=== PATIENT | female | born 1955 | race Caucasian/White ===

== ENCOUNTER 2018-03-09 17:53 | Inpatient (IN) | payer BC ==
[2018-03-09] MEDS ORDERED: Catapres 0.1 MG PO ONE ×2 (18:17→19:39)
--- NOTE | 2018-03-09 18:23 | ERPHSYRPT ---
- History of Present Illness Source: patient Patient Subjective Stated Complaint: states bp has been up today. Triage Nursing Assessment: ambulated to room per self. skin w/d, color normal, resp easy. c/o headache today and blurred vision. denies any chest discomfort Hx Tetanus, Diphtheria Vaccination/Date Given: No Hx Influenza Vaccination/Date Given: No Hx Pneumococcal Vaccination/Date Given: No <SALEEM VILCHIS - Last Filed: 03/09/18 18:41> <DACIA SMITH - Last Filed: 03/09/18 21:08> - History of Present Illness Time Seen by Provider: 03/09/18 18:20 Physician History: mild to mod throbbing headache today w/ nausea, no chest pain, BP 223/131, no injury, hx htn, speech fluent (SALEEM VILCHIS) Allergies/Adverse Reactions: No Known Drug Allergies Allergy (Unverified 03/09/18 18:09) Home Medications: Amlodipine Besylate/Benazepril [Amlodipine-Benazepril 10-20 mg] 1 each PO DAILY 03/09/18 [History] Ferrous Sulfate 325 mg [Feosol 325 mg] 325 mg PO DAILY 03/09/18 [History] Montelukast Sodium 10 mg [Singulair 10 MG] 10 mg PO DAILY 03/09/18 [History] Naproxen 500 mg [Naprosyn 500 MG] 500 mg PO BID 03/09/18 [History] Omeprazole [Omeprazole] 40 mg PO DAILY 03/09/18 [History] - Review of Systems Constitutional: No Fever Eyes: Vision Changes Ears, Nose, & Throat: No Mouth Pain Respiratory: No Dyspnea Cardiac: No Chest Pain Abdominal/Gastrointestinal: Nausea, No Abdominal Pain, No Vomiting Musculoskeletal: No Back Pain, No Neck Pain Skin: No Rash Neurological: Headache, No Dizziness, No Focal Weakness, No Speech Changes <SALEEM VILCHIS - Last Filed: 03/09/18 18:41> - Past Medical History Pertinent Past Medical History: Yes Cardiac History: Hypertension Respiratory History: Asthma GI Medical History: GERD Other Medical History: anemia - Past Surgical History Past Surgical History: Yes Female Surgical History: Tubal Ligation - Social History Smoking Status: Never smoker Exposure to second hand smoke: No Drug Use: none Patient Lives Alone: No - Female History Hx Now: No <SALEEM VILCHIS - Last Filed: 03/09/18 18:41> - Physical Exam General Appearance: no apparent distress Eye Exam: PERRL/EOMI, eyes nml inspection Ears, Nose, Throat Exam: pharynx normal Neck Exam: normal inspection Respiratory Exam: normal breath sounds Cardiovascular Exam: regular rate/rhythm Gastrointestinal/Abdominal Exam: soft, No tenderness Extremity Exam: normal inspection Mental Status Exam: alert, oriented x 3, 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 Exam: normal hearing, normal speech, PERRL Motor/Sensory Exam: no motor deficit Skin Exam: normal color, warm, dry SpO2 Interpretation: normal SpO2: 95 Oxygen Delivery: Room Air <SALEEM VILCHIS - Last Filed: 03/09/18 18:41> - Nursing Vital Signs Nursing Vital Signs: Initial Vital Signs Temperature 98.7 F 03/09/18 17:57 Pulse Rate 94 H 03/09/18 17:57 Respiratory Rate 18 03/09/18 17:57 Blood Pressure 223/131 03/09/18 17:57 O2 Sat by Pulse Oximetry 95 03/09/18 17:57 Pain Scale Pain Intensity 0 Ordered Tests: Active Orders 24 hr Category Date Time Status 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 STAT Care 03/09/18 18:19 Active EKG-ER Only STAT Care 03/09/18 18:18 Active IV Insertion STAT Care 03/09/18 18:18 Active Pulse Oximetry (ED) STAT Care 03/09/18 18:18 Active HEAD WITHOUT CONTRAST [CT] Stat Exams 03/09/18 18:18 Taken CBC W DIFF Stat Lab 03/09/18 18:20 Completed CMP Stat Lab 03/09/18 18:20 Completed PROTIME WITH INR Stat Lab 03/09/18 18:20 Completed TROPONIN Q3H Lab 03/09/18 18:20 Completed TROPONIN Q3H Lab 03/09/18 21:30 Ordered TROPONIN Q3H Lab 03/10/18 00:30 Ordered TROPONIN Q3H Lab 03/10/18 03:30 Ordered TROPONIN Q3H Lab 03/10/18 06:30 Ordered Medication Summary Generic Name Dose Route Start Last Admin Trade Name Freq PRN Reason Stop Dose Admin Metoprolol Succinate 50 mg 03/09/18 21:05 Toprol Xl 50 Mg PO 03/09/18 21:06 ONCE STA Discontinued Medications Generic Name Dose Route Start Last Admin Trade Name Eric PRN Reason Stop Dose Admin Clonidine 0.1 mg 03/09/18 18:17 03/09/18 19:00 Catapres 0.1 Mg PO 03/09/18 18:18 0.1 mg STAT ONE Administration Clonidine Confirm 03/09/18 18:59 Catapres 0.1 Mg Administered 03/09/18 19:00 Dose 0.1 mg .ROUTE .STK-MED ONE Clonidine 0.1 mg 03/09/18 19:39 03/09/18 19:50 Catapres 0.1 Mg PO 03/09/18 19:40 0.1 mg STAT ONE Administration Clonidine Confirm 03/09/18 19:46 Catapres 0.1 Mg Administered 03/09/18 19:47 Dose 0.1 mg .ROUTE .STK-MED ONE Sodium Chloride 1,000 mls @ 999 mls/hr 03/09/18 19:40 03/09/18 21:00 Sodium Chloride 0.9% 1000 Ml IV 03/09/18 20:40 Infused .Q1H1M STA Infusion Sodium Chloride Confirm 03/09/18 19:47 Sodium Chloride 0.9% 1000 Ml Administered 03/09/18 19:48 Dose 1,000 mls @ ud .ROUTE .STK-MED ONE Labetalol HCl 10 mg 03/09/18 20:22 03/09/18 20:30 Trandate 20 Mg/5 Ml Syringe IV 03/09/18 20:23 10 mg STAT ONE Administration Labetalol HCl Confirm 03/09/18 20:26 Trandate 20 Mg/5 Ml Syringe Administered 03/09/18 20:27 Dose 20 mg IV .STK-MED ONE Potassium Bicarbonate 50 meq 03/09/18 19:41 03/09/18 19:50 K-Lyte 25 Meq PO 03/09/18 19:42 50 meq STAT ONE Administration Potassium Bicarbonate Confirm 03/09/18 19:47 K-Lyte 25 Meq Administered 03/09/18 19:48 Dose 50 meq .ROUTE .STK-MED ONE Lab/Rad Data: Laboratory Result Diagrams 03/09/18 18:20 03/09/18 18:20 Laboratory Results 0503/09/18 03/09/18 Range/Units 18:20 18:20 18:20 WBC (4.0-10.5) K/mm3 RBC (4.1-5.4) M/mm3 Hgb (12.0-16.0) gm/dl Hct (35-47) % MCV (78-100) fl MCH (26-32) pg MCHC (32-36) g/dl Plt Count (150-450) K/mm3 MPV (6-9.5) fl Gran % (36.0-66.0) % Eos # (Auto) (0-0.5) Absolute Lymphs (auto) (1.0-4.6) Absolute Monos (auto) (0.0-1.3) Lymphocytes % (24.0-44.0) % Monocytes % (0.0-12.0) % Eosinophils % (0.00-5.0) % Basophils % (0.0-0.4) % Absolute Granulocytes (1.4-6.9) Basophils # (0-0.4) PT 11.5 (9.95-12.35) SECONDS INR 0.99 (0.8-3.0) Sodium 146 H (137-145) mmol/L Potassium 2.9 L* (3.5-5.1) mmol/L Chloride 97 L (98-107) mmol/L Carbon Dioxide 34 H (22-30) mmol/L Anion Gap 18.4 H (5-15) MEQ/L BUN 26 H (7-17) mg/dL Creatinine 0.90 (0.52-1.04) mg/dL Estimated GFR > 60.0 ML/MIN Glucose 99 (74-106) mg/dL Calcium 13.8 H* (8.4-10.2) mg/dL Total Bilirubin 0.50 (0.2-1.3) mg/dL AST 31 (14-36) U/L ALT 16 (0-35) U/L Alkaline Phosphatase 65 (38-126) U/L Troponin I 0.012 (0.000-0.034) ng/mL Serum Total Protein 7.6 (6.3-8.2) g/dL Albumin 4.5 (3.5-5.0) g/dL 03/09/18 Range/Units 18:20 WBC 8.9 (4.0-10.5) K/mm3 RBC 4.61 (4.1-5.4) M/mm3 Hgb 12.0 (12.0-16.0) gm/dl Hct 38.3 (35-47) % MCV 83.1 (78-100) fl MCH 26.0 (26-32) pg MCHC 31.3 L (32-36) g/dl Plt Count 413 (150-450) K/mm3 MPV 10.0 H (6-9.5) fl Gran % 70.3 H (36.0-66.0) % Eos # (Auto) 0.34 (0-0.5) Absolute Lymphs (auto) 1.62 (1.0-4.6) Absolute Monos (auto) 0.66 (0.0-1.3) Lymphocytes % 18.2 L (24.0-44.0) % Monocytes % 7.4 (0.0-12.0) % Eosinophils % 3.8 (0.00-5.0) % Basophils % 0.3 (0.0-0.4) % Absolute Granulocytes 6.24 (1.4-6.9) Basophils # 0.03 (0-0.4) PT (9.95-12.35) SECONDS INR (0.8-3.0) Sodium (137-145) mmol/L Potassium (3.5-5.1) mmol/L Chloride (98-107) mmol/L Carbon Dioxide (22-30) mmol/L Anion Gap (5-15) MEQ/L BUN (7-17) mg/dL Creatinine (0.52-1.04) mg/dL Estimated GFR ML/MIN Glucose (74-106) mg/dL Calcium (8.4-10.2) mg/dL Total Bilirubin (0.2-1.3) mg/dL AST (14-36) U/L ALT (0-35) U/L Alkaline Phosphatase (38-126) U/L Troponin I (0.000-0.034) ng/mL Serum Total Protein (6.3-8.2) g/dL Albumin (3.5-5.0) g/dL <SALEEM VILCHIS - Last Filed: 03/09/18 18:41> - Progress Progress: improved Air Movement: fair <DACIA SMITH - Last Filed: 03/09/18 21:08> - Progress Progress Note: 03/09/18 18:[address] Smith at 19:00 (SALEEM VILCHIS) 03/09/18 20:02 This is a 62-year-old white female initially seen by Dr. Vilchis Patient a history has a history of high blood pressure, asthma, GERD, anemia Past surgical history includes tubal ligation Patient arrives with complaints of a headache today with nausea she was noted have markedly elevated blood pressure 223/131 Patient apparently had a vasovagal response with her blood pressure going low afterwards her headache went away but came back up patient was given clonidine 0.[address] Vilchis Vitals on arrival temperature 98.7 pulse 94 respirations 18 blood pressure 223/ 181 Physical examination well-developed well-nourished white female she is alert oriented 3 pleasant and cooperative to examination Head is atraumatic normocephalic. Eyes PERRLA EOMI fundi are unremarkable. Ears TMs are montemayor and intact bilaterally. Nose is clear. Throat is clear. Neck is supple full range of motion. Lungs are clear. Heart regular rate and rhythm without murmur. Abdomen soft nontender nondistended positive bowel sounds. Extremities full range of motion pulse equal symmetrical 2 over 4. Neuro cranial nerves II through XII are intact DTRs symmetrical 2 over 4 Jackson Coma Scale is 15. EKG sinus rhythm 98 bpm normal axis Q waves in lead 3 poor anterior R-wave progresion no acute ST or T wave changes.; Labs CBC White blood cell 8.9 hemoglobin 12.0 hematocrit 31.3 platelets 413 PT 11.9 INR 0.99 chemistry sodium 146 potassium 2.9 chloride 97 bicarbonate 34 BUN 26 creatinine 0.9 glucose 99 Patient's calcium is elevated at 13.8 patient states she does take antacids Troponin is within normal limits Patient's anion gap is 18.4 Impression headache, hypokalemia, hypertension, hypercalcemia. Plan I've discussed the case briefly with Dr. Rodriguez will give patient's blood pressure down she is being given a second dose of clonidine considering labetalol. Patient will be given IV normal saline. Consideration was given to Lasix for the patient however she has a low potassium and will withhold this for now. Will give patient K-Lyte 50 mEq by mouth. 03/09/18 21:02 Patient is improve her blood pressure still elevated she was given clonidine 0.1 mg second dose Also given labetalol 10 mg IV I've contacted Dr. Rodriguez he wishes the patient to be given Toprol-XL 50 mg by mouth 1 Will continue her amlodipine/benazepril as prescribed at home we'll also write for Toprol-XL 50 mg by mouth daily also will write for hydralazine 10 mg IV every 4 hours when necessary systolic blood pressure greater than 180/110 Will start normal saline with 20 of potassium IV at 100 mL per hour. Repeat CBC CMP in the morning continue telemetry. Diagnosis headache. Hypertensive urgency. Hypokalemia. (DACIA SMITH) <SALEEM VILCHIS - Last Filed: 03/09/18 18:41> - Departure Time of Disposition: 21:07 Departure Disposition: Observation Critical Care Time: No <DACIA SMITH - Last Filed: 03/09/18 21:08> - Departure Clinical Impression: Hypertensive urgency, Hypokalemia, Hypercalcemia Headache Qualifiers: Headache type: unspecified Headache chronicity pattern: acute headache Intractability: not intractable Qualified Code(s): R51 - Headache Condition: Fair Referrals: NELL RODRIGUEZ MD [Primary Care Provider] -
[2018-03-09 18:33] LABS: BASOPHIL % 0.3 % (0.0-0.4); Basophil (Absolute #) 0.03 (0-0.4); Eosinophil % 3.8 % (0.00-5.0); Eosinophil (Absolute #) 0.34 (0-0.5); Granulocyte Absolute (ANC) 6.24 (1.4-6.9); Granulocytes % 70.3 % (36.0-66.0); Hematocrit 38.3 % (35-47); Lymphocyte (Absolute #) 1.62 (1.0-4.6); Lymphocytes % 18.2 % (24.0-44.0); Mean Cell Volume 83.1 fl (78-100); Mean Corpuscular Hgb Concent. 31.3 g/dl (32-36); Monocyte (Absolute #) 0.66 (0.0-1.3); Monocytes % 7.4 % (0.0-12.0); Platelet Count 413 K/mm3 (150-450); Red Blood Count 4.61 M/mm3 (4.1-5.4); White Blood Count 8.9 K/mm3 (4.0-10.5)
[2018-03-09 18:55] LABS: INR 0.99 (0.8-3.0)
[2018-03-09 18:59] LABS: ALBUMIN 4.5 g/dL (3.5-5.0); ALKALINE PHOSPHATASE 65 U/L (38-126); ANION GAP 18.4 MEQ/L (5-15); BLOOD UREA NITROGEN 26 mg/dL (7-17); CHLORIDE 97 mmol/L (98-107); Carbon Dioxide 34 mmol/L (22-30); Glucose 99 mg/dL (74-106); SGOT/AST 31 U/L (14-36); SGPT/ALT 16 U/L (0-35); SODIUM 146 mmol/L (137-145); Total Protein 7.6 g/dL (6.3-8.2)
[2018-03-09] MEDS ORDERED: Catapres 0.1 MG ONE ×2 (18:59→19:46)
[2018-03-09 19:32] LABS: Potassium 2.9 mmol/L (3.5-5.1)
[2018-03-09 19:33] LABS: Calcium 13.8 mg/dL (8.4-10.2)
[2018-03-09] MEDS ORDERED: Sodium Chloride 0.9% 1000 ML 1,000 ML IV STA (19:40)
[2018-03-09] MEDS ORDERED: K-LYTE 25 MEQ PO ONE (19:41)
[2018-03-09] MEDS ORDERED: Sodium Chloride 0.9% 1000 ML 1,000 ML ONE (19:47)
[2018-03-09] MEDS ORDERED: K-LYTE 25 MEQ ONE (19:47)
[2018-03-09] MEDS ORDERED: TRANDATE 20 MG/5 ML SYRINGE IV ONE ×2 (20:22→20:26)
[2018-03-09] MEDS ORDERED: Toprol Xl 50 MG PO STA (21:05)
[2018-03-09] MEDS ORDERED: Toprol-Xl 25MG Tablets ONE (21:14)
[2018-03-09] MEDS ORDERED: Lotrel 5/10 MG PO SCH (22:00)
[2018-03-09] MEDS: Sodium Chloride 0.9% W/ 20 mEq KCl/LITER 1,000 ML IV SCH (22:24)
[2018-03-09] MEDS ORDERED: FEOSOL 325 MG PO SCH (22:30)
[2018-03-09] MEDS ORDERED: Singulair 10 MG PO SCH (22:30)
[2018-03-09] MEDS ORDERED: Protonix 40MG Tablet PO SCH (22:30)
[2018-03-09] MEDS ORDERED: Toprol Xl 50 MG PO SCH (22:30)
[2018-03-09 23:31] LABS: Slide Review 1 YES
[2018-03-10 06:03] LABS: BASOPHIL % 0.3 % (0.0-0.4); Basophil (Absolute #) 0.03 (0-0.4); Eosinophil % 1.7 % (0.00-5.0); Eosinophil (Absolute #) 0.15 (0-0.5); Granulocyte Absolute (ANC) 6.54 (1.4-6.9); Granulocytes % 74.5 % (36.0-66.0); Hematocrit 32.5 % (35-47); Lymphocyte (Absolute #) 1.41 (1.0-4.6); Mean Cell Volume 84.9 fl (78-100); Mean Corpuscular Hemoglobin 26.1 pg (26-32); Mean Corpuscular Hgb Concent. 30.8 g/dl (32-36); Mean Platelet Volume 10.3 fl (6-9.5); Monocyte (Absolute #) 0.66 (0.0-1.3); Monocytes % 7.5 % (0.0-12.0); Platelet Count 386 K/mm3 (150-450); Red Blood Count 3.83 M/mm3 (4.1-5.4); White Blood Count 8.8 K/mm3 (4.0-10.5)
[2018-03-10 06:21] LABS: ALBUMIN 3.6 g/dL (3.5-5.0); ALKALINE PHOSPHATASE 48 U/L (38-126); ANION GAP 11.7 MEQ/L (5-15); BLOOD UREA NITROGEN 23 mg/dL (7-17); CHLORIDE 99 mmol/L (98-107); Carbon Dioxide 36 mmol/L (22-30); Creatinine 1 0.89 mg/dL (0.52-1.04); Glucose 126 mg/dL (74-106); SGOT/AST 16 U/L (14-36); SGPT/ALT 12 U/L (0-35); SODIUM 143 mmol/L (137-145); Total Protein 5.8 g/dL (6.3-8.2)
[2018-03-10 07:24] LABS: Slide Review 1 YES
--- NOTE | 2018-03-10 08:27 | XRAY ---
Indication: Headache. Elevated blood pressure. Multiple contiguous axial images obtained through the head without contrast. Comparison: None Age-appropriate global atrophy and mild periventricular degenerative micro-ischemia bilaterally. No acute intracranial hemorrhage, abnormal extra-axial fluid collection, or mass effect. Fourth ventricle is midline without hydrocephalus. Bony calvarium intact. Visualized paranasal sinuses and mastoid air cells are clear. Impression: Nonacute senile brain. CT DI 69.11
--- NOTE | 2018-03-10 09:18 | PCM.HP ---
History of Present Illness - Chief Complaint Chief Complaint: hypetensive urgency, hypokalemia, hypercalcemia History of Present Illness: is a 62 year old female who presented to the ER with acute onset of headache and elevated blood pressure. Has felt poorly for the last 2 days, no new meds or supplements. Has been taking a high protein/low carb diet. No chest pain, no shortness of breath, no vomiting etc. Patient admits to taking around 4 antacid tablets daily as of late. - Review of Systems Constitutional: No Fever, No Chills Respiratory: No Cough, No Short Of Breath Cardiac: No Chest Pain, No Edema, No Syncope Abdominal/Gastrointestinal: No Abdominal Pain, No Nausea, No Vomiting, No Diarrhea Genitourinary Symptoms: No Dysuria Skin: No Rash All Other Systems: Reviewed and Negative Medications & Allergies Home Medications: Home Medication List Amlodipine Besylate/Benazepril [Amlodipine-Benazepril 10-20 mg] 1 each PO DAILY 03/09/18 [History Confirmed 03/09/18] Ferrous Sulfate 325 mg [Feosol 325 mg] 325 mg PO DAILY 03/09/18 [History Confirmed 03/09/18] Montelukast Sodium 10 mg [Singulair 10 MG] 10 mg PO DAILY 03/09/18 [History Confirmed 03/09/18] Omeprazole [Omeprazole] 40 mg PO DAILY 03/09/18 [History Confirmed 03/09/18] Allergies/Adverse Reactions: Allergies Allergy/AdvReac Type Severity Reaction Status Date / Time No Known Drug Allergies Allergy Unverified 03/09/18 18:09 - Past Medical History Past Medical History: Yes Neurological History: No Pertinent History ENT History: No Pertinent History Cardiac History: Hypertension Respiratory History: Asthma Endocrine Medical History: No Pertinent History Musculoskelatal History: Arthritis GI Medical History: GERD History: No Pertinent History Pyscho-Social History: No Pertinent History Reproductive Disorders: No Pertinent History Comment: anemia - Female History Are you now?: No - Past Surgical History Past Surgical History: Yes Neuro Surgical History: No Pertinent History Cardiac History: No Pertinent History Respiratory Surgery: No Pertinent History GI Surgical History: No Pertinent History Genitourinary Surgical Hx: No Pertinent History Musculskeletal Surgical Hx: No Pertinent History Female Surgical History: Tubal Ligation - Social History Smoking Status: Never smoker Exposure to second hand smoke: No Alcohol: Rarely Drug Use: none - Physical Exam Vital Signs: Vital Signs - 24 hr Temp Pulse Resp BP Pulse Ox 03/10/18 07:27 98.4 F 67 16 159/73 94 L 03/10/18 04:00 98.3 F 73 18 172/84 93 L 03/10/18 00:00 76 18 161/80 98 03/09/18 23:34 183/83 03/09/18 22:37 98.1 F 76 17 182/100 93 L 03/09/18 21:10 79 16 175/101 98 03/09/18 20:42 78 171/109 03/09/18 20:31 83 18 192/109 97 03/09/18 20:02 89 18 214/106 98 03/09/18 19:20 84 16 215/117 97 03/09/18 18:58 83 18 205/109 03/09/18 18:42 95 03/09/18 18:24 98 03/09/18 17:57 98.7 F 94 H 18 223/131 95 Oxygen-Last 24 hours O2 Percentage 2 Liters = 28% O2 Percentage 2 Liters = 28% O2 Percentage 2 Liters = 28% O2 Percentage 2 Liters = 28% O2 Percentage 2 Liters = 28% O2 Percentage 2 Liters = 28% General Appearance: no apparent distress, alert Neurologic Exam: alert, oriented x 3, cooperative, normal mood/affect, nml cerebellar function, nml station & gait, sensation nml, No motor deficits Respiratory Exam: normal breath sounds, lungs clear, No respiratory distress Cardiovascular Exam: regular rate/rhythm, normal heart sounds, normal peripheral pulses Gastrointestinal/Abdomen Exam: soft, normal bowel sounds, No tenderness, No mass Extremity Exam: normal inspection, normal range of motion, pelvis stable Skin Exam: normal color, warm, dry, No rash Results - Labs Lab/Micro Results: Lab Results-Last 24 Hours 03/10/18 03/10/18 Range/Units 05:48 05:48 WBC 8.8 (4.0-10.5) K/mm3 RBC 3.83 L (4.1-5.4) M/mm3 Hgb 10.0 L (12.0-16.0) gm/dl Hct 32.5 L (35-47) % MCV 84.9 (78-100) fl MCH 26.1 (26-32) pg MCHC 30.8 L (32-36) g/dl Plt Count 386 (150-450) K/mm3 MPV 10.3 H (6-9.5) fl Gran % 74.5 H (36.0-66.0) % Eos # (Auto) 0.15 (0-0.5) Absolute Lymphs (auto) 1.41 (1.0-4.6) Absolute Monos (auto) 0.66 (0.0-1.3) Lymphocytes % 16.0 L (24.0-44.0) % Monocytes % 7.5 (0.0-12.0) % Eosinophils % 1.7 (0.00-5.0) % Basophils % 0.3 (0.0-0.4) % Absolute Granulocytes 6.54 (1.4-6.9) Basophils # 0.03 (0-0.4) Sodium 143 (137-145) mmol/L Potassium 3.0 L (3.5-5.1) mmol/L Chloride 99 (98-107) mmol/L Carbon Dioxide 36 H (22-30) mmol/L Anion Gap 11.7 (5-15) MEQ/L BUN 23 H (7-17) mg/dL Creatinine 0.89 (0.52-1.04) mg/dL Estimated GFR > 60.0 ML/MIN Glucose 126 H (74-106) mg/dL Calcium 13.0 H* (8.4-10.2) mg/dL Total Bilirubin 0.20 (0.2-1.3) mg/dL AST 16 (14-36) U/L ALT 12 (0-35) U/L Alkaline Phosphatase 48 (38-126) U/L Serum Total Protein 5.8 L (6.3-8.2) g/dL Albumin 3.6 (3.5-5.0) g/dL Slides for Path Review YES Assessment/Plan (1) Hypertensive urgency Current Visit: Yes Status: Acute Assessment & Plan: bp improved at this time with addition of metoprolol Code(s): I16.0 - HYPERTENSIVE URGENCY (2) Hypercalcemia Current Visit: Yes Status: Acute Assessment & Plan: will check PTH, also c/o some low back pain so will get xray to r/o any bony process. Code(s): E83.52 - HYPERCALCEMIA (3) Hypokalemia Current Visit: Yes Status: Acute Assessment & Plan: replacing Code(s): E87.6 - HYPOKALEMIA (4) Headache Current Visit: Yes Status: Acute Qualifiers: Headache type: unspecified Headache chronicity pattern: acute headache Intractability: not intractable Qualified Code(s): R51 - Headache Assessment & Plan: resolved with improved bp control Code(s): R51 - HEADACHE
[2018-03-10] MEDS: Protonix 40MG Tablet PO SCH ×2 (09:52→21:41)
--- NOTE | 2018-03-10 10:05 | XRAY ---
Indication: Low back pain 1 month. No known injury. Comparison: None 5 views of the lumbar spine demonstrates 5 lumbar vertebral segments with mild double curvature scoliosis and mild/moderate multilevel degenerative spondylosis greatest at the L1-L2 level. No acute fracture, subluxation, or pars interarticularis defect. A few calcified splenic granulomas and pelvic phleboliths. Impression: Nonacute lumbar spine with chronic features.
[2018-03-10] MEDS: Sodium Chloride 0.9% W/ 20 mEq KCl/LITER 1,000 ML IV SCH ×2 (10:23→20:36)
--- NOTE | 2018-03-10 16:39 | XRAY ---
Indication: Hypoxia. Hypercalcemia. Comparison: None Portable chest clear with a few incidental calcified granulomas. Heart and mediastinal structures within normal limits for AP portable technique. Bony thorax intact with mild osteopenia and degenerative changes. Impression: Nonacute chest with chronic features.
[2018-03-10] MEDS: APRESOLINE 20 MG/ML INJ IV PRN ×2 (19:42→23:34)
[2018-03-10] MEDS ORDERED: DULCOLAX 5 MG PO PRN (20:00)
[2018-03-10] MEDS: Singulair 10 MG PO SCH (21:34)
[2018-03-10] MEDS: FEOSOL 325 MG PO SCH (21:34)
[2018-03-10] MEDS: Lotrel 5/10 MG PO SCH (21:35)
[2018-03-10] MEDS ORDERED: Toprol Xl 50 MG PO SCH (22:00)
[2018-03-11] MEDS: APRESOLINE 20 MG/ML INJ IV PRN (05:39)
[2018-03-11 06:23] LABS: BASOPHIL % 0.3 % (0.0-0.4); Basophil (Absolute #) 0.03 (0-0.4); Eosinophil % 2.9 % (0.00-5.0); Eosinophil (Absolute #) 0.27 (0-0.5); Granulocyte Absolute (ANC) 7.23 (1.4-6.9); Granulocytes % 77.1 % (36.0-66.0); Hematocrit 36.9 % (35-47); Hemoglobin 11.5 gm/dl (12.0-16.0); Lymphocyte (Absolute #) 1.18 (1.0-4.6); Lymphocytes % 12.6 % (24.0-44.0); Mean Cell Volume 84.6 fl (78-100); Mean Corpuscular Hgb Concent. 31.2 g/dl (32-36); Mean Platelet Volume 10.5 fl (6-9.5); Monocyte (Absolute #) 0.67 (0.0-1.3); Monocytes % 7.1 % (0.0-12.0); Platelet Count 427 K/mm3 (150-450); Red Blood Count 4.36 M/mm3 (4.1-5.4); White Blood Count 9.4 K/mm3 (4.0-10.5)
[2018-03-11 06:27] LABS: ALKALINE PHOSPHATASE 56 U/L (38-126); ANION GAP 11.1 MEQ/L (5-15); BLOOD UREA NITROGEN 14 mg/dL (7-17); CHLORIDE 102 mmol/L (98-107); Carbon Dioxide 34 mmol/L (22-30); Creatinine 1 0.79 mg/dL (0.52-1.04); Glucose 128 mg/dL (74-106); SGOT/AST 19 U/L (14-36); SGPT/ALT 14 U/L (0-35); SODIUM 145 mmol/L (137-145); Total Protein 6.6 g/dL (6.3-8.2)
[2018-03-11 06:28] LABS: Mean Corpuscular Hemoglobin 26.3 pg (26-32)
[2018-03-11 06:30] LABS: Potassium 2.6 mmol/L (3.5-5.1)
[2018-03-11 06:32] LABS: Calcium 13.4 mg/dL (8.4-10.2)
[2018-03-11] MEDS ORDERED: POTASSIUM CHLORIDE 20 mEq IN WATER 100ML 100 ML IV ONE (06:41)
[2018-03-11] MEDS ORDERED: Sodium Chloride 0.9% 500 ML 500 ML IV ONE (06:42)
[2018-03-11] MEDS: Sodium Chloride 0.9% 500 ML 500 ML IV SCH (06:45)
[2018-03-11] MEDS: POTASSIUM CHLORIDE 20 mEq IN WATER 100ML 20 MEQ/100 ML BAG IV SCH ×2 (06:49→08:40)
[2018-03-11 07:53] LABS: Slide Review 1 YES
[2018-03-11] MEDS ORDERED: TYLENOL 325 MG PO PRN (08:27)
--- NOTE | 2018-03-11 08:31 | PCM.NOTE ---
Date and Time: 03/11/18827 Subjective Assessment: patient feeling worse today, nauseated and complaining of headache. potassium low this morning despite receiving potassium containing fluids. Objective Exam General Appearance: no apparent distress, alert Skin Exam: normal color, warm, dry Eye Exam: PERRL, EOMI, eyes nml inspection Respiratory Exam: normal breath sounds, lungs clear, No respiratory distress Cardiovascular Exam: regular rate/rhythm, normal heart sounds Gastrointestinal/Abdomen Exam: soft, No tenderness, No mass Extremity Exam: normal inspection, normal range of motion OBJECTIVE DATA Vital Signs: Vital Signs - 24 hr Temp Pulse Resp BP Pulse Ox 03/11/18 07:25 97.9 F 79 18 209/100 94 L 03/11/18 05:36 223/111 03/11/18 04:41 98.1 F 81 17 190/92 95 03/11/18 00:00 99.5 F 79 18 188/104 92 L 03/10/18 20:00 98.5 F 76 18 201/104 95 03/10/18 16:00 98.4 F 71 18 185/84 90 L 03/10/18 11:34 97.5 F 70 18 179/89 91 L Oxygen-Last 24 hours O2 Percentage 2 Liters = 28% Pain Assessment - Last Documented Pain Intensity 0 Pain Scale Used 0-10 Pain Scale Intake and Output: Intake & Output 03/08/18 03/09/18 03/10/18 03/11/18 11:59 11:59 11:59 11:59 Intake Total 1185 5969 Output Total 1000 5200 Balance 185 769 Weight 104.8 kg 105 kg Lab Results: Lab Results-Last 24 Hours 03/10/18 03/11/18 03/11/18 Range/Units 05:15 05:15 05:15 WBC 9.4 (4.0-10.5) K/mm3 RBC 4.36 (4.1-5.4) M/mm3 Hgb 11.5 L (12.0-16.0) gm/dl Hct 36.9 (35-47) % MCV 84.6 (78-100) fl MCH 26.3 (26-32) pg MCHC 31.2 L (32-36) g/dl Plt Count 427 (150-450) K/mm3 MPV 10.5 H (6-9.5) fl Gran % 77.1 H (36.0-66.0) % Eos # (Auto) 0.27 (0-0.5) Absolute Lymphs (auto) 1.18 (1.0-4.6) Absolute Monos (auto) 0.67 (0.0-1.3) Lymphocytes % 12.6 L (24.0-44.0) % Monocytes % 7.1 (0.0-12.0) % Eosinophils % 2.9 (0.00-5.0) % Basophils % 0.3 (0.0-0.4) % Absolute Granulocytes 7.23 H (1.4-6.9) Basophils # 0.03 (0-0.4) Sodium 145 (137-145) mmol/L Potassium 2.6 L* (3.5-5.1) mmol/L Chloride 102 (98-107) mmol/L Carbon Dioxide 34 H (22-30) mmol/L Anion Gap 11.1 (5-15) MEQ/L BUN 14 (7-17) mg/dL Creatinine 0.79 (0.52-1.04) mg/dL Estimated GFR > 60.0 ML/MIN Glucose 128 H (74-106) mg/dL Calcium 13.4 H* (8.4-10.2) mg/dL Magnesium 1.6 (1.6-2.3) mg/dL Total Bilirubin 0.20 (0.2-1.3) mg/dL AST 19 (14-36) U/L ALT 14 (0-35) U/L Alkaline Phosphatase 56 (38-126) U/L Serum Total Protein 6.6 (6.3-8.2) g/dL Albumin 4.0 (3.5-5.0) g/dL TSH 3rd Generation 1.630 (0.47-4.68) mIU/L Slides for Path Review YES Radiology Exams: Radiology Procedures Category Date Time Status CHEST 1 VIEW (PORTABLE) Urgent Exams 03/10/18 15:29 Completed CTA ABD/PEL W AND/OR W/O CONTR [CT] Routine Exams 03/11/18 08:17 Ordered LUMBAR COMPLETE (MIN 4 VIEWS) Urgent Exams 03/10/18 09:47 Completed Assessment/Plan (1) Hypertensive urgency Current Visit: Yes Status: Acute Onset Date: ~03/09/18 Assessment & Plan: resistant to treatment, changing metoprolol to bid and adding hydralazine 25mg qid today Code(s): I16.0 - HYPERTENSIVE URGENCY (2) Hypercalcemia Current Visit: Yes Status: Acute Onset Date: ~03/09/18 Assessment & Plan: PTH pending, no improvement with hydration. nephrology consult pending at this time. Code(s): E83.52 - HYPERCALCEMIA (3) Hypokalemia Current Visit: Yes Status: Acute Onset Date: ~03/09/18 Assessment & Plan: K rider and Mag rider ordered today. check aldosterone level Code(s): E87.6 - HYPOKALEMIA (4) Headache Current Visit: Yes Status: Acute Onset Date: ~03/09/18 Qualifiers: Headache type: unspecified Headache chronicity pattern: acute headache Intractability: not intractable Qualified Code(s): R51 - Headache Code(s): R51 - HEADACHE
[2018-03-11] MEDS: Zofran 4 MG/2 ML VIAL IV PRN ×3 (08:38→19:50)
[2018-03-11] MEDS: SUBLIMAZE 100 MCG/2 ML IV PRN ×2 (08:38→20:13)
[2018-03-11] MEDS: Apresoline 25 MG TABLET PO SCH ×4 (10:04→22:01)
[2018-03-11] MEDS: Toprol Xl 50 MG PO SCH ×2 (10:04→22:02)
[2018-03-11] MEDS: Magnesium 1 Gm / 100 Ml D5W*** 100 ML IV SCH ×2 (10:49→11:46)
[2018-03-11] MEDS: Sodium Chloride 0.9% W/ 20 mEq KCl/LITER 1,000 ML IV SCH (10:50)
[2018-03-11] MEDS ORDERED: Phenergan 25 MG INJ IV PRN (13:06)
--- NOTE | 2018-03-11 13:31 | XRAY ---
Indication: Possible neovascular hypertension. Conventional CTA abdomen/pelvis was performed using a cc Isovue 370 contrast. Two-dimensional sagittal and coronal reformatted images obtained. Additional 3-D reformatted images obtained using a separate workstation. Comparison: None Abdominal aorta is normal in course and caliber without focal arteriosclerotic plaquing. Normal branching and widely patent celiac, superior mesenteric, and inferior mesenteric arteries. Very minimal calcification at the origin of the superior mesenteric artery. A single renal artery supplies each kidney without focal stenosis, obstruction, or vascular malformation. Noncontrasted stomach and bowel loops appear nonobstructed. Scattered colonic diverticulosis greatest in the descending and sigmoid. No free fluid/air. A few calcified splenic granulomas. Remaining liver, gallbladder, pancreas, spleen, adrenal glands, kidneys, ureters, bladder, uterus, and IVC appear normal in CT appearance and attenuation. No pathologic retroperitoneal lymphadenopathy. Lung bases demonstrates minimal bibasilar atelectasis/scarring. No infiltrate or effusion. Heart is not enlarged. Small hiatal hernia. Osseous structures intact with mild/moderate multilevel degenerative changes throughout the thoracolumbar spine. Mild dextrorotoscoliosis centered at the L1 level. No ventral or inguinal hernias. Impression: 1. Very minimal arteriosclerotic calcification at the origin of the SMA. Remaining CTA abdominal aorta including renal arteries are negative. 2. Small hiatal hernia and colonic diverticulosis. 3. No acute intra-abdominal or pelvic abnormalities. CT DI 32.09
[2018-03-11] MEDS ORDERED: BUMEX 1 MG IV SCH (18:00)
[2018-03-11] MEDS: MIACALCIN SQ SCH (18:13)
[2018-03-11] MEDS: Sodium Chloride 0.9% 1000 ML 1,000 ML IV SCH (18:14)
[2018-03-11] MEDS: Aldactone 25 MG PO SCH (18:14)
[2018-03-11] MEDS: Klor Con 10 MEQ PO SCH ×2 (18:14→20:12)
[2018-03-11] MEDS: TRANDATE 100MG/20 ML MDV IV PRN (19:51)
[2018-03-11 20:51] LABS: Appearance CLEAR (CLEAR); Bilirubin NEGATIVE (NEGATIVE); Blood NEGATIVE Ery/ul (0-5); Glucose NEGATIVE (NEGATIVE); Ketones NEGATIVE (NEGATIVE); Leukocyte Esterase NEGATIVE (NEGATIVE); Nitrite NEGATIVE (NEGATIVE); Protein,Urine Dip NEGATIVE (Negative); Urobilinogen NORMAL mg/dL (0-1)
[2018-03-11] MEDS: FEOSOL 325 MG PO SCH (22:01)
[2018-03-11] MEDS: Protonix 40MG Tablet PO SCH (22:02)
[2018-03-11] MEDS: Lotrel 5/10 MG PO SCH (22:02)
[2018-03-11] MEDS: Singulair 10 MG PO SCH (22:02)
--- NOTE | 2018-03-11 22:21 | XRAY ---
Indication: Hypertensive urgency. Bradycardia. Renal insufficiency. Multiple contiguous axial images obtained through the chest without contrast as ordered. Comparison: None Lungs are inflated with minimal bilateral dependent atelectasis and bibasilar fibrosis/scarring. Small focus of infiltrate in the medial right middle lobe. Elsewhere no suspicious pulmonary mass, infiltrate, or effusion. Heart is not enlarged. Aorta is normal in course and caliber. Tiny right infrahilar calcified nodes. No pathologic mediastinal lymphadenopathy. Bony thorax intact with minimal degenerative changes throughout the spine. CT abdomen reported separately. Impression: Minimal right middle lobe infiltrate. Remaining CT chest without contrast exam is negative. Comment: Preliminary interpretation was made by [facility]. No discrepancy. CTDI 17.76
[2018-03-12] MEDS: TRANDATE 100MG/20 ML MDV IV PRN ×2 (00:04→15:46)
[2018-03-12] MEDS: Sodium Chloride 0.9% 1000 ML 1,000 ML IV SCH ×2 (01:51→16:21)
[2018-03-12] MEDS: MIACALCIN SQ SCH (03:06)
[2018-03-12] MEDS: Zofran 4 MG/2 ML VIAL IV PRN ×2 (03:41→15:39)
[2018-03-12 06:23] LABS: Basophil (Absolute #) 0.01 (0-0.4); Eosinophil % 1.3 % (0.00-5.0); Eosinophil (Absolute #) 0.26 (0-0.5); Granulocyte Absolute (ANC) 17.98 (1.4-6.9); Granulocytes % 88.2 % (36.0-66.0); Hematocrit 36.6 % (35-47); Hemoglobin 11.2 gm/dl (12.0-16.0); Lymphocyte (Absolute #) 0.69 (1.0-4.6); Lymphocytes % 3.4 % (24.0-44.0); Mean Cell Volume 85.9 fl (78-100); Mean Corpuscular Hgb Concent. 30.6 g/dl (32-36); Mean Platelet Volume 10.4 fl (6-9.5); Monocyte (Absolute #) 1.45 (0.0-1.3); Monocytes % 7.1 % (0.0-12.0); Platelet Count 408 K/mm3 (150-450); Red Blood Count 4.26 M/mm3 (4.1-5.4); White Blood Count 20.4 K/mm3 (4.0-10.5)
[2018-03-12 06:33] LABS: Mean Corpuscular Hemoglobin 26.2 pg (26-32)
[2018-03-12 06:37] LABS: ALBUMIN 3.9 g/dL (3.5-5.0); ALKALINE PHOSPHATASE 58 U/L (38-126); ANION GAP 11.6 MEQ/L (5-15); BLOOD UREA NITROGEN 14 mg/dL (7-17); CHLORIDE 106 mmol/L (98-107); Calcium 11.4 mg/dL (8.4-10.2); Carbon Dioxide 28 mmol/L (22-30); Creatinine 1 0.77 mg/dL (0.52-1.04); Glucose 149 mg/dL (74-106); SGOT/AST 14 U/L (14-36); SGPT/ALT 12 U/L (0-35); SODIUM 143 mmol/L (137-145); Total Protein 6.5 g/dL (6.3-8.2)
[2018-03-12 06:48] LABS: Potassium 2.8 mmol/L (3.5-5.1)
[2018-03-12 07:14] LABS: Slide Review 1 YES
[2018-03-12] MEDS ORDERED: MIACALCIN SQ ONE (09:45)
[2018-03-12] MEDS: SODIUM CHLORIDE 0.45% W/ 20 mEq KCL 1,000 ML IV SCH ×2 (10:09→22:48)
[2018-03-12] MEDS: Apresoline 25 MG TABLET PO SCH ×4 (10:10→21:17)
[2018-03-12] MEDS: Klor Con 10 MEQ PO SCH ×3 (10:10→21:17)
[2018-03-12] MEDS: POTASSIUM CHLORIDE 20 mEq IN WATER 100ML 20 MEQ/100 ML BAG IV SCH ×2 (10:10→13:28)
[2018-03-12] MEDS: Toprol Xl 50 MG PO SCH ×2 (10:10→21:17)
[2018-03-12] MEDS: Aldactone 25 MG PO SCH (10:10)
[2018-03-12] MEDS: Fortical 3.7 ML NASAL NS SCH (10:11)
[2018-03-12] MEDS: Sodium Chloride 0.9% 500 ML 500 ML IV SCH (16:22)
[2018-03-12] MEDS: Sodium Chloride 0.9% W/ 20 mEq KCl/LITER 1,000 ML IV SCH (16:22)
[2018-03-12] MEDS ORDERED: TRANDATE 20 MG/5 ML SYRINGE IV ONE (20:49)
[2018-03-12] MEDS: Protonix 40MG Tablet PO SCH (21:17)
[2018-03-12] MEDS: FEOSOL 325 MG PO SCH (21:18)
[2018-03-12] MEDS: Lotrel 5/10 MG PO SCH (21:18)
[2018-03-12] MEDS: Singulair 10 MG PO SCH (21:18)
--- NOTE | 2018-03-12 21:19 | XRAY ---
Indication: Elevated WBC. Comparison: March 10, 2018. PA/lateral chest remains clear again with incidental calcified granulomas. Heart is not enlarged. No new/acute findings. Impression: Stable nonacute chest. Comment: Preliminary interpretation was made by [facility]. No discrepancy.
[2018-03-13] MEDS: TRANDATE 100MG/20 ML MDV IV PRN ×2 (00:33→23:26)
[2018-03-13] MEDS: Zofran 4 MG/2 ML VIAL IV PRN ×2 (04:18→09:30)
[2018-03-13 06:08] LABS: Hematocrit 34.4 % (35-47); Hemoglobin 10.8 gm/dl (12.0-16.0); Mean Cell Volume 85.4 fl (78-100); Mean Corpuscular Hgb Concent. 31.4 g/dl (32-36); Mean Platelet Volume 10.6 fl (6-9.5); Platelet Count 426 K/mm3 (150-450); Red Blood Count 4.03 M/mm3 (4.1-5.4); White Blood Count 13.1 K/mm3 (4.0-10.5)
[2018-03-13 06:13] LABS: ANION GAP 12.5 MEQ/L (5-15); BLOOD UREA NITROGEN 10 mg/dL (7-17); CHLORIDE 105 mmol/L (98-107); Calcium 10.3 mg/dL (8.4-10.2); Carbon Dioxide 25 mmol/L (22-30); Creatinine 1 0.64 mg/dL (0.52-1.04); Glucose 129 mg/dL (74-106); Mean Corpuscular Hemoglobin 26.7 pg (26-32); Potassium 3.3 mmol/L (3.5-5.1); SODIUM 140 mmol/L (137-145)
[2018-03-13] MEDS: Sodium Chloride 0.9% 1000 ML 1,000 ML IV SCH (08:37)
[2018-03-13] MEDS: Aldactone 25 MG PO SCH (08:43)
[2018-03-13] MEDS: Toprol Xl 50 MG PO SCH ×2 (08:43→22:23)
[2018-03-13] MEDS: Klor Con 10 MEQ PO SCH ×3 (08:43→22:23)
[2018-03-13] MEDS: Apresoline 25 MG TABLET PO SCH ×4 (08:43→22:23)
[2018-03-13 08:46] LABS: Slide Review YES
[2018-03-13] MEDS: Fortical 3.7 ML NASAL NS SCH (08:47)
[2018-03-13] MEDS: SODIUM CHLORIDE 0.45% W/ 20 mEq KCL 1,000 ML IV SCH (08:48)
[2018-03-13] MEDS: xanAX 0.5 MG PO PRN ×2 (10:46→22:23)
[2018-03-13] MEDS: Pepcid 20 MG PO SCH (10:46)
[2018-03-13] MEDS: FEOSOL 325 MG PO SCH (22:23)
[2018-03-13] MEDS: Singulair 10 MG PO SCH (22:23)
[2018-03-13] MEDS: Lotrel 5/10 MG PO SCH (22:23)
[2018-03-13] MEDS: Protonix 40MG Tablet PO SCH (22:24)
[2018-03-14 01:26] LABS: Angiotensin Converting Enzyme 5 U/L (8-52)
[2018-03-14 06:26] LABS: ANION GAP 11.1 MEQ/L (5-15); BLOOD UREA NITROGEN 11 mg/dL (7-17); CHLORIDE 112 mmol/L (98-107); Calcium 9.6 mg/dL (8.4-10.2); Carbon Dioxide 22 mmol/L (22-30); Creatinine 1 0.67 mg/dL (0.52-1.04); Glucose 107 mg/dL (74-106); Potassium 3.4 mmol/L (3.5-5.1); SODIUM 142 mmol/L (137-145)
[2018-03-14 07:15] VITALS: PULSE 80; O2SAT 97
[2018-03-14] MEDS: Aldactone 25 MG PO SCH (09:44)
[2018-03-14] MEDS: Apresoline 25 MG TABLET PO SCH (09:44)
[2018-03-14] MEDS: Fortical 3.7 ML NASAL NS SCH (09:44)
[2018-03-14] MEDS: Pepcid 20 MG PO SCH (09:45)
[2018-03-14] MEDS: Klor Con 10 MEQ PO SCH (09:45)
[2018-03-14] MEDS: Toprol Xl 50 MG PO SCH (09:46)
[2018-03-14 11:19] VITALS: BP 168/100
--- NOTE | 2018-03-14 11:21 | PCM.DCORD ---
- Discharge Discharge Date: 03/14/18 Disposition: Home, Self-Care Condition: Stable Prescriptions: New Spironolactone 25 mg [Aldactone 25 MG] 25 mg PO BID #60 tablet ALPRAZolam [Alprazolam] 0.5 mg PO TID PRN #20 tablet PRN Reason: Anxiety HydrALAzine HCL 25 MG TAB [Apresoline 25 MG TABLET] 25 mg PO QID #120 tablet Potassium Chloride 10 Meq Tab* [Klor Con 10 MEQ] 10 meq PO BID #60 tab Metoprolol Tartrate 100 mg PO BID #60 tablet Famotidine 20 mg [Pepcid 20 MG] 40 mg PO DAILY #30 tablet Continue Montelukast Sodium 10 mg [Singulair 10 MG] 10 mg PO DAILY Ferrous Sulfate 325 mg [Feosol 325 mg] 325 mg PO DAILY Amlodipine Besylate/Benazepril [Amlodipine-Benazepril 10-20 mg] 1 each PO DAILY Omeprazole 40 mg PO DAILY #30 capsule.dr Instructions: Acid Reflux (Gastroesophageal Reflux Disease), Adult (DC), High Blood Pressure (DC), Low Salt Diet Additional Instructions: cbc, cmp lab draw on wednesday do not have to be fasting Follow up with: NELL TENORIO MD [Primary Care Provider] - Call for Appointment ALVARO ROUSSEAU [CONSULTING PHYSICIAN] - 1 Week Forms: Discharge Instructions, Hypertension Instructions, Patient Portal Information
--- NOTE | 2018-03-14 11:28 | PCM.DS ---
Discharge Summary Date of Admission: 03/11/18 05:15 Date of Discharge: 03/14/18 Admitting Physician: NELL TENORIO Primary Care Provider: NELL TENORIO Allergies Allergies No Known Drug Allergies Allergy (Unverified 03/09/18 18:09) Hospital Summary - Hospital Course Hospital Course: She has been suffering from severe indigestions for the last several months and eats copious amounts of TUMS every day. She was having a severe headache and came to the ED and was found to have BP in the 230's / 130's and this was treated acutely. She was also found to have hypokalemia and severe hypercalcemia which were new diagnosis. She was recently diagnosed with iron deficiency anemia and has upper and lower endoscopy scheduled as an outpatient. Dr. Vizcarra nephrology consulted on the patient and his dictation is not available. He did order several tests that are pending and she was started on aldactone. This has improved her bp that is still elevated and she was given calcitonin and her hypercalcemia has resolved. Her potassium is improved with the aldactone and supplementation. Her headache has resolved and she is currently asymptomatic and requesting to go home today and has her things packed up and ready. She has had a chest, abd, pelvis CT with minimal right middle lobe infiltrate and a small hiatle hernia otherwise rather unremarkable For her severe HTN, hypokalemia, hypocalcemia her aldactone is increased to 25 mg po bid and KCl decreased to 10 mEq po bid check cmp, cbc in 2 days f/u in office this weak and outpatient f/u with Dr. Vizcarra nephrology She has pending pthrp, Vitamin D 1,25 OH, SPEP, UPEP, renin/aldosterone, ghulam level, serum light chains, urine metanephrines she will go back to a regular balanced diet as she was on a restricted weight loss diet and she is not to take supplements or otc antacids - Vitals & Intake/Output Vital Signs: Vital Signs Temperature 97.9 F 03/14/18 07:14 Pulse Rate 80 03/14/18 07:14 Respiratory Rate 20 03/14/18 07:14 Blood Pressure 168/100 03/14/18 11:19 O2 Sat by Pulse Oximetry 97 03/14/18 07:14 Oxygen-Last Documented O2 Percentage 2 Liters = 28% Intake & Output: Intake & Output 03/11/18 03/12/18 03/13/18 03/14/18 11:59 11:59 11:59 11:59 Intake Total 120 3876 4378 2140 Output Total 3299 1850 3350 Balance 757 875 3844 -1210 Weight 105 kg 104.5 kg 105 kg 104.3 kg - Lab Result Diagrams: 03/13/18 05:20 03/14/18 05:30 Lab Results-Last 24 Hrs: Lab Results-Last 24 Hours 03/11/18 03/14/18 Range/Units 18:00 05:30 Sodium 142 (137-145) mmol/L Potassium 3.4 L (3.5-5.1) mmol/L Chloride 112 H (98-107) mmol/L Carbon Dioxide 22 (22-30) mmol/L Anion Gap 11.1 (5-15) MEQ/L BUN 11 (7-17) mg/dL Creatinine 0.67 (0.52-1.04) mg/dL Estimated GFR > 60.0 ML/MIN Glucose 107 H (74-106) mg/dL Calcium 9.6 (8.4-10.2) mg/dL Total Protein (PEP) Pending Albumin Pending [id number]-Tnmfckdow Pending Hdshi-1-Qpdmhfhcw Pending Rtnw-4-Urhbrfzh Pending Gamma Globulins Pending M-Benjamin Beta Pending PEP Interpretation Pending Angiotensin Convert Enz 5 L (8-52) U/L Vit D 1,25-Dihydroxy Pending Serum Immunofixation Pending Free [place] Light Chains Pending Free Lambda Light Chain Pending Free [place]/Lambda Ratio Pending - Radiology Exams Ordered Rad Exams-Entire Visit: Radiology Procedures Category Date Time Status CHEST 2 VIEWS (PA AND LAT) Routine Exams 03/12/18 11:12 Completed Discharge Exam General Appearance: no apparent distress, alert Neurologic Exam: alert, oriented x 3, cooperative, normal mood/affect, nml cerebellar function, sensation nml, No motor deficits Skin Exam: normal color, warm, dry Eye Exam: PERRL, EOMI, eyes nml inspection Ears, Nose, Throat Exam: normal ENT inspection, pharynx normal, moist mucous membranes Neck Exam: normal inspection, non-tender, supple, full range of motion Respiratory Exam: normal breath sounds, lungs clear, No respiratory distress Cardiovascular Exam: regular rate/rhythm, normal heart sounds Gastrointestinal/Abdomen Exam: soft, No tenderness, No mass Extremity Exam: normal inspection, normal range of motion Back Exam: normal inspection, normal range of motion, No CVA tenderness, No vertebral tenderness Pelvic Exam: deferred Rectal Exam: deferred Final Diagnosis/Problem List - Final Discharge Diagnosis/Problem (1) Hypertensive urgency Status: Acute Onset Date: ~03/09/18 (2) Hypercalcemia Status: Acute Onset Date: ~03/09/18 (3) Hypokalemia Status: Acute Onset Date: ~03/09/18 (4) Headache Status: Acute Onset Date: ~03/09/18 (5) GERD (gastroesophageal reflux disease) Status: Acute (6) Iron deficiency anemia Status: Acute - Discharge Discharge Date: 03/14/18 Disposition: Home, Self-Care Condition: Stable Prescriptions: New Spironolactone 25 mg [Aldactone 25 MG] 25 mg PO BID #60 tablet ALPRAZolam [Alprazolam] 0.5 mg PO TID PRN #20 tablet PRN Reason: Anxiety HydrALAzine HCL 25 MG TAB [Apresoline 25 MG TABLET] 25 mg PO QID #120 tablet Potassium Chloride 10 Meq Tab* [Klor Con 10 MEQ] 10 meq PO BID #60 tab Metoprolol Tartrate 100 mg PO BID #60 tablet Famotidine 20 mg [Pepcid 20 MG] 40 mg PO DAILY #30 tablet Continue Montelukast Sodium 10 mg [Singulair 10 MG] 10 mg PO DAILY Ferrous Sulfate 325 mg [Feosol 325 mg] 325 mg PO DAILY Amlodipine Besylate/Benazepril [Amlodipine-Benazepril 10-20 mg] 1 each PO DAILY Omeprazole 40 mg PO DAILY #30 capsule.dr Instructions: Acid Reflux (Gastroesophageal Reflux Disease), Adult (DC), High Blood Pressure (DC), Low Salt Diet Additional Instructions: cbc, cmp lab draw on wednesday do not have to be fasting Follow up with: NELL TENORIO MD [Primary Care Provider] - Call for Appointment ALVARO VIZCARRA [CONSULTING PHYSICIAN] - 1 Week Forms: Discharge Instructions, Hypertension Instructions, Patient Portal Information
[2018-03-14] MEDS ORDERED: Aldactone 25 MG PO SCH (11:30)
[2018-03-15 09:29] LABS: Kappa Free Light Chain 10.9 mg/L (0.0-22.2); Kappa Lambda Ratio 0.562 (0.410-1.430); Lambda Free Light Chain 19.4 mg/L (0.0-34.4)
--- NOTE | 2018-03-15 09:51 | CONS ---
CONSULT DATE: 03/11/2018 REASON FOR CONSULT: Hypercalcemia, hypokalemia, intractable hypertension. HISTORY: Miss Akua Vera is a very pleasant 62 year-old lady who presented to the emergency room with acute onset of headache and elevated blood pressure. The patient had been doing poorly for two days prior to admission. The patient states that she was taking her medications regularly. The patient was noted to have a calcium of around 14 mg/dcl. Also the patient's blood pressure was in 200's systolic. Her potassium levels have been persistently low. Given her multiple electrolyte abnormalities a renal consultation was called. The patient denies any progressive leg swelling or leading questions. She does admit to the fact that she was taking plenty of antacid, protein supplements. She was trying to lose weight. The patient was also taking multiple vitamins. She denies any progressive leg swelling, denies any chest pain or abdominal pain at this time. No quantified weight loss over the last three or four months according to her. 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 The patient denies any prior knowledge of kidney disease. No foamy urine. The patient denies any history of kidney stones. REVIEW OF SYSTEMS: Basically positive for occasional nausea, just not feeling right, fatigue, lethargy, off and on confusion as reported by her . No kidney stone. No dysuria. No hematuria. No chest pain. No abdominal pain. No gross vomiting or diarrhea. No fall trauma or headache was present. No blurry vision. No focal weaknesses. No progressive leg swelling. No fever, chills, rigors. Also systems were reviewed in detail and pertinent mentioned here and in history of present illness and the rest were negative. PAST MEDICAL HISTORY: Hypertension. Gastroesophageal reflux disease. Obesity trying to lose weight. History of asthma. History of arthritis. PAST SURGICAL HISTORY: History of tubal ligation. No other major surgeries in the recent past. HOME MEDICATIONS: Included [id number] multiple vitamins, antacids, ferrous sulfate, Singular, omeprazole. ALLERGIES: NKDA. SOCIAL HISTORY: Never smoker. No alcohol abuse. No drug abuse. PHYSICAL EXAMINATION: Reveals a lady who is lying in bed in no major respiratory distress or pain, reasonable historian. Family was available at bedside. Vital signs were reviewed. Blood pressure has been 170 to 200 systolic. Pulse rate was noted to be 81/minute, respiratory rate 16/minute. Afebrile. HEENT: Normocephalic, atraumatic, normocephalic, atraumatic, slightly pale conjunctivae, nonicteric sclera. NECK: Supple. No obvious JVD. CHEST: Clear to auscultation. No distress. CVS: S1, S2 normal. No rub or gallop. ABDOMEN: Soft, nontender. No organomegaly. EXTREMITIES: No cyanosis, clubbing. SKIN: No skin rash. MUSCULOSKELETAL: No acute joint swelling, redness, nontender. NEUROLOGIC: Nonfocal exam. Alert, awake, oriented x3. LAB DATA AND TESTS: Labs were reviewed. Hemoglobin 11.5, white blood cell count 9.4. Creatinine 0.79. Glomerular filtration rate was more than 60. Potassium has been anywhere from 2.6 to 3 mEq. Calcium level 13.4. Magnesium level 1.6. ASSESSMENT: 1) HYPERCALCEMIA: Most likely etiology seems to be exogenophenic in view of the fact that the PTH levels are low at 10. Calcium is slowly improving. Also point to be noted that usually with exogenophenic such high levels of calcium are relatively rare. We will definitely need to rule out any malignancy. CT of the abdomen and head were reviewed which did not show any acute etiology. We will get CT scan of the chest. We will also rule out paraproteinemia work up including intact PTH. We will also do paraproteinemia work up including serum protein electrophoresis, serum immunofixation and free light chain assay. We will also send parathyroid-related peptide. In the meantime I will increase the fluids to 150 cc/hour. The patient is about 2.3 liter positive balance. We will give a dose of Bumex for helping with the calcium. We will also give the patient Calcitonin for 48 hours. If calcium levels do not improve consider Pamidronate. Pamidronate has not been given at this time in view of the fact the etiology seems to be osteogenesis imperfecta. We will also check vitamin D level to make sure that they are not high to rule out any underlying sarcoidosis. We will also send angiotensin converting enzyme levels. 2) HYPERTENSION ACCELERATED: The patient states that she did not miss her medications. CT-angiogram of the abdomen did not comment on any calcified renal arteries. This could be related to high calcium. I also agree with monitoring Aldosterone renin ratio. Also the Bumex is being given which may help with the component of volume mediated hypertension and cause some normocalemia. We will start the patient on Spironolactone as Aldosterone renin ratio has been sent already. 3) HYPOKALEMIA: This may be because of nausea but most likely etiology appears to be hypertension which seems to be renovascular versus hyperaldesterone result. Replace potassium. Aldosterone will help, monitor closely. 4) CHRONIC KIDNEY DISEASE NOT OTHERWISE SPECIFIED: At this time renal function remains stable. Continue to monitor closely, monitor protein quantification to rule out any underlying renal etiology. 5) GASTROESOPHAGEAL REFLUX DISEASE: Avoid calcium based antacid. Let us closely follow up the patient, discuss with Dr. Kevin Rodriguez and follow closely.
[2018-03-15 11:49] LABS: Metanephrine,Plasma 0.14 nmol/L (0.00-0.49)
[2018-03-15 12:45] LABS: Vitamin D 1,25 Dihydroxy 12.5 pg/mL (26.1-95.0)
[2018-03-15 14:41] LABS: PROTEIN BETA 2 0.34 g/dL (0.18-0.50); Protein Beta 1 0.42 g/dL (0.35-0.66)
== END 2018-03-14 11:50 | disposition home or self-care (01) | DRG 641 ==
LOC: ED 17:53 → MED SURG 21:38 → OBSVTOIN 03-11 05:15
PROVIDERS: ADMIT Family Medicine; ATTEND Family Medicine
DX: E83.52 Hypercalcemia (principal); E87.6 Hypokalemia; R51 Headache; K21.9 Gastro-esophageal reflux disease without esophagitis; F41.9 Anxiety disorder, unspecified; J45.909 Unspecified asthma, uncomplicated; M19.90 Unspecified osteoarthritis, unspecified site; Z79.899 Other long term (current) drug therapy; I12.9 Hypertensive chronic kidney disease with stage 1 through stage 4 chronic kidney disease, or unspecified chronic kidney disease; N18.9 Chronic kidney disease, unspecified
CPT/HCPCS: 36000; 36415; 70450; 71045; 71046; 71250; 72110; 74174; 80048; 80053; 81002; 82088; 82164; 82306; 82570; 82652; 83735; 83835; 83883; 83970; 84132; 84156; 84165; 84244; 84300; 84443; 84484; 85025; 85027; 85610; 85652; 86334; 93005; 93041; 93268; 99285; J0360; J0630; J2405; J2550; J3010; J3475; J3480; A9270-GY; G0378

== ENCOUNTER 2018-03-30 05:38 | Day surgery (SDC) | payer BC ==
[2018-03-30] MEDS ORDERED: DIPRIVAN 200 MG/20 ML IV ONE (05:39)
[2018-03-30] MEDS ORDERED: Ketamine HCl 50 MG/ML IV ONE (05:39)
[2018-03-30] MEDS ORDERED: Lactated Ringers 1,000 ML IV SCH (06:00)
[2018-03-30 06:36] VITALS: O2SAT 100
[2018-03-30 08:52] VITALS: BP 151/100; PULSE 78
--- NOTE | 2018-03-30 10:31 | OP ---
SURGERY DATE/TIME: 03/30/2018 0700 PREOPERATIVE DIAGNOSES: 1) Persistent gastroesophageal reflux disease. 2) Known history of hiatal hernia. POSTOPERATIVE DIAGNOSES: 1) Moderate to severe gastritis. 2) Large hiatal hernia. 3) Presumed delayed gastric emptying. PROCEDURE: EGD. SURGEON: Kevin Rodriguez M.D. ANESTHESIA: MAC by Clark Hayward CRNA. ESTIMATED BLOOD LOSS: Minimal. SPECIMENS: Two cold forceps biopsies were taken from the gastric antrum. DESCRIPTION OF PROCEDURE: The patient was taken to the endoscopy suite and placed in left lateral decubitus position. The bite block was inserted. She underwent monitored anesthesia. After adequate level of anesthesia was assessed, the endoscope was inserted into the posterior oropharynx and under direct visualization the esophagus was traversed. There was a large hiatal hernia present with a large amount of liquid and solid food debris in the gastric cavity. There was an attempt made to suction it but the suction was unsuccessful and became clogged. In the area of the gastric antrum there was dried blood with some fresh blood. No obvious ulceration but again there was a large amount of debris and food particles present which made view suboptimal. The gastric antrum was sampled twice with cold forceps and sent for Helicobacter pylori testing. Following the samples the patient began to vomit the gastric contents therefore the scope was quickly removed so that we could suction the food debris. Upon discussion with the patient and her family after the procedure she indeed had been NPO since yesterday which points to severe delayed gastric emptying in the context of moderate to severe gastritis which likely explains her severe reflux resistant to therapy and persistent vomiting. I have advised that she be referred to Gastroenterology for further care as she has been on high dose and proton pump inhibitor and H2 ashely therapy with no improvement of symptoms at this time.
== END 2018-03-30 08:50 | disposition home or self-care (01) ==
LOC: SDC 05:38
PROVIDERS: ATTEND Family Medicine
DX: K29.70 Gastritis, unspecified, without bleeding (principal); K44.9 Diaphragmatic hernia without obstruction or gangrene; K21.9 Gastro-esophageal reflux disease without esophagitis; K30 Functional dyspepsia; I10 Essential (primary) hypertension
CPT/HCPCS: 88305; 88342; J2704

== ENCOUNTER 2020-03-16 18:42 | Inpatient (IN) | payer OTHER ==
[2020-03-16] MEDS ORDERED: Zofran 4 MG/2 ML VIAL ONE ×2 (18:56→20:10)
[2020-03-16] MEDS ORDERED: Sodium Chloride 0.9% 1000 ML 1,000 ML ONE (18:57)
[2020-03-16] MEDS ORDERED: Sodium Chloride 0.9% 1000 ML 1,000 ML IV STA (19:08)
[2020-03-16] MEDS ORDERED: PROTONIX 40 MG IV IV ONE ×2 (19:08→19:20)
[2020-03-16] MEDS ORDERED: Zofran 4 MG/2 ML VIAL IV ONE ×2 (19:08→20:11)
--- NOTE | 2020-03-16 19:08 | ERPHSYRPT ---
- History of Present Illness Time Seen by Provider: 03/16/20 19:00 Historian: patient Exam Limitations: no limitations Patient Subjective Stated Complaint: pt reports nausea and vomiting for approx 2 weeks. pt states around 3 weeks ago she had a respiratory illness and after recovering from that she began experiencing nausea and vomiting. pt reports she is dehydrated and is unable to keep anything down. Triage Nursing Assessment: pt is aox3, pupils perrl, afebrile, resps easy and non labored, radial pulses strong and equal, cap refill < 3 seconds, abd is soft , non tender, bowel sounds present, normoactive x 4, pt skin appears very pale, warm dry. Physician History: This is a 64-year-old morbidly obese white female with a history of hypertension on hydralazine amlodipine and metoprolol as well as Spironolactone. She presents with 3-week history of intermittent vomiting. She also has a history of gastroesophageal reflux disease and iron deficiency anemia. She has had hypokalemia in the past as well as hypercalcemia. Approximately 3 weeks ago patient was having respiratory illness. Nausea began at that time. The respiratory symptoms cleared but she has had intermittent nausea and vomiting for the last 3 weeks. Patient denies chest pain she denies shortness of breath she denies abdominal pain and she denies diarrhea. Patient is concerned that she may be dehydrated. The only abdominal surgery the patient states she has had is a bilateral tubal ligation Timing/Duration: week(s) (3) Activities at Onset: none Quality: other (No abdominal pain) Abdominal Pain Onset Location: other (No abdominal pain) Severity of Pain-Max: none Severity of Pain-Current: none Modifying Factors: Improves With: vomiting Associated Symptoms: nausea, vomiting Previous symptoms: same symptoms as today Allergies/Adverse Reactions: No Known Drug Allergies Allergy (Verified 03/16/20 19:04) Home Medications: Amlodipine Besylate/Benazepril [Amlodipine-Benazepril 10-20 mg] 1 each PO DAILY 03/09/18 [History] Ferrous Sulfate 325 mg [Feosol 325 mg] 325 mg PO BID 03/09/18 [History] Montelukast Sodium 10 mg [Singulair 10 MG] 10 mg PO DAILY 03/09/18 [History] Famotidine 20 mg [Pepcid 20 MG] 20 mg PO BID 03/30/18 [History] Rabeprazole Sodium [Aciphex] 20 mg PO BID 03/30/18 [History] Hx Tetanus, Diphtheria Vaccination/Date Given: Yes Hx Influenza Vaccination/Date Given: Yes Hx Pneumococcal Vaccination/Date Given: Yes Immunizations Up to Date: Yes Travel Risk - International Travel Have you traveled outside of the country in past 3 weeks: No (N) Have you or anyone close to you been diagnosed with or: No Do your reside in a community with a known COVID-19 case?: Yes If Yes where:: [facility] - Coronavirus Screening Has patient experienced Coronavirus symptoms: No - Review of Systems Constitutional: Weakness Eyes: No Symptoms Ears, Nose, & Throat: No Symptoms Respiratory: No Symptoms Cardiac: No Symptoms Abdominal/Gastrointestinal: Nausea, Vomiting, No Abdominal Pain, No Diarrhea Genitourinary Symptoms: No Symptoms Musculoskeletal: No Symptoms Skin: No Symptoms Neurological: No Symptoms Psychological: No Symptoms Endocrine: No Symptoms Hematologic/Lymphatic: No Symptoms Immunological/Allergic: No Symptoms All Other Systems: Reviewed and Negative - Past Medical History Pertinent Past Medical History: Yes Neurological History: No Pertinent History ENT History: No Pertinent History Cardiac History: Hypertension Respiratory History: Asthma Endocrine Medical History: No Pertinent History Musculoskeletal History: Arthritis GI Medical History: GERD, Other History: No Pertinent History Psycho-Social History: No Pertinent History Female Reproductive Disorders: No Pertinent History Other Medical History: anemia. hiatal hernia - Past Surgical History Past Surgical History: Yes Neuro Surgical History: No Pertinent History Cardiac: No Pertinent History Respiratory: No Pertinent History Gastrointestinal: No Pertinent History Genitourinary: No Pertinent History Musculoskeletal: No Pertinent History Female Surgical History: Tubal Ligation - Social History Smoking Status: Never smoker Exposure to second hand smoke: No Drug Use: none Patient Lives Alone: No - Female History Hx Now: No - Nursing Vital Signs Nursing Vital Signs: Initial Vital Signs Temperature 98.1 F 03/16/20 18:44 Pulse Rate 120 H 03/16/20 18:44 Respiratory Rate 20 03/16/20 18:44 Blood Pressure 121/86 03/16/20 18:44 O2 Sat by Pulse Oximetry 97 03/16/20 18:44 Pain Scale Pain Intensity 0 - Physical Exam General Appearance: moderate distress, alert, obese Eye Exam: PERRL/EOMI, eyes nml inspection Ears, Nose, Throat Exam: dry mucous membranes Neck Exam: normal inspection, non-tender, supple, full range of motion Respiratory Exam: normal breath sounds, lungs clear, airway intact, No chest tenderness, No respiratory distress Cardiovascular Exam: tachycardia Gastrointestinal/Abdomen Exam: soft, normal bowel sounds, No tenderness Pelvic Exam: not done Rectal Exam: not done Back Exam: normal inspection, normal range of motion, No CVA tenderness, No vertebral tenderness Extremity Exam: normal inspection, normal range of motion, pelvis stable Neurologic Exam: alert, oriented x 3, cooperative, dehydrator tender II-XII nml as tested, other (Upon patient arrival into the patient's room, the patient complained of significant nausea and was answering questions well moving all her extremities. However it appeared as though as the IV was being placed she looked over and then appeared to have a vasovagal response with paleness of the skin diaphoresis followed by "passing out" for a brief period of time with complete resolution neurologically back to baseline.) Skin Exam: diaphoresis, pale Lymphatic Exam: No adenopathy SpO2 Interpretation: normal SpO2: 97 O2 Delivery: Room Air - Course Nursing assessment & vital signs reviewed: Yes EKG Interpreted by Me: RATE ([id number]), Sinus Tach, NORMAL AXIS, NORMAL INTERVALS, NORMAL QRS, Other (no acute ischemia) Ordered Tests: Active Orders 24 hr Category Date Time Status ACCUCHECK [Accucheck] STAT Care 03/16/20 19:10 Active EKG-ER Only STAT Care 03/16/20 19:08 Active IV Insertion STAT Care 03/16/20 19:08 Active IV Insertion-2nd Peripheral STAT Care 03/16/20 20:16 Active Oxygen-ED Only Nasal Cannula 2 lpm Care 03/16/20 19:50 Active cath [Cath for Specimen-Straight] STAT Care 03/16/20 19:49 Active ABDOMEN AND PELVIS W/0 CONTRAS [CT] Stat Exams 03/16/20 19:08 Taken AMYLASE Stat Lab 03/16/20 19:11 Completed CBC W DIFF Stat Lab 03/16/20 19:11 Completed CMP Stat Lab 03/16/20 19:11 Completed LIPASE Stat Lab 03/16/20 19:11 Completed Lactic Acid Stat Lab 03/16/20 19:25 Completed MAG [MAGNESIUM] Stat Lab 03/16/20 19:15 Received TROPONIN Q3H Lab 03/16/20 19:27 Completed TROPONIN Q3H Lab 03/16/20 22:30 Ordered UA W/RFX UR CULTURE Stat Lab 03/16/20 19:54 Completed Transfer Order Routine Transfer 03/16/20 Ordered Medication Summary Generic Name Dose Route Start Last Admin Trade Name rEic PRN Reason Stop Dose Admin Sodium Chloride 1,000 mls @ 100 mls/hr 03/16/20 20:30 03/16/20 20:19 Sodium Chloride 0.9% 1000 Ml IV 04/15/20 20:29 100 mls/hr .Q10H YANA Administration Discontinued Medications Generic Name Dose Route Start Last Admin Trade Name Eric PRN Reason Stop Dose Admin Sodium Chloride Confirm 03/16/20 18:57 Sodium Chloride 0.9% 1000 Ml Administered 03/16/20 18:58 Dose 1,000 mls @ ud .ROUTE .STK-MED ONE Sodium Chloride 1,000 mls @ 999 mls/hr 03/16/20 19:08 03/16/20 19:23 Sodium Chloride 0.9% 1000 Ml IV 03/16/20 20:08 999 mls/hr .Q1H1M STA Administration Ondansetron HCl Confirm 03/16/20 18:56 Zofran 4 Mg/2 Ml Vial Administered 03/16/20 18:57 Dose 4 mg .ROUTE .STK-MED ONE Ondansetron HCl 4 mg 03/16/20 19:08 03/16/20 19:25 Zofran 4 Mg/2 Ml Vial IV 03/16/20 19:09 4 mg STAT ONE Administration Ondansetron HCl Confirm 03/16/20 20:10 Zofran 4 Mg/2 Ml Vial Administered 03/16/20 20:11 Dose 4 mg .ROUTE .STK-MED ONE Ondansetron HCl 4 mg 03/16/20 20:11 03/16/20 20:15 Zofran 4 Mg/2 Ml Vial IV 03/16/20 20:12 4 mg STAT ONE Administration Pantoprazole Sodium 40 mg 03/16/20 19:08 03/16/20 19:23 Protonix 40 Mg Iv IV 03/16/20 19:09 40 mg STAT ONE Administration Pantoprazole Sodium Confirm 03/16/20 19:20 Protonix 40 Mg Iv Administered 03/16/20 19:21 Dose 40 mg IV .STK-MED ONE Lab/Rad Data: Laboratory Result Diagrams 03/16/20 19:11 03/16/20 19:11 Laboratory Results 03/16/20 03/16/20 03/16/20 Range/Units 19:54 19:27 19:25 WBC (4.0-10.5) K/mm3 RBC (4.1-5.4) M/mm3 Hgb (12.0-16.0) gm/dl Hct (35-47) % MCV (78-100) fl MCH (26-32) pg MCHC (32-36) g/dl RDW (11.5-14.0) % Plt Count (150-450) K/mm3 MPV (7.5-11.0) fl Gran % (36.0-66.0) % Eos # (Auto) (0-0.5) Absolute Lymphs (auto) (1.0-4.6) Absolute Monos (auto) (0.0-1.3) Lymphocytes % (24.0-44.0) % Monocytes % (0.0-12.0) % Eosinophils % (0.00-5.0) % Basophils % (0.0-0.4) % Absolute Granulocytes (1.4-6.9) Basophils # (0-0.4) Sodium (137-145) mmol/L Potassium (3.5-5.1) mmol/L Chloride (98-107) mmol/L Carbon Dioxide (22-30) mmol/L Anion Gap (5-15) MEQ/L BUN (7-17) mg/dL Creatinine (0.52-1.04) mg/dL Estimated GFR ML/MIN Glucose (74-106) mg/dL Lactic Acid 1.7 (0.4-2.0) Calcium (8.4-10.2) mg/dL Magnesium (1.6-2.3) mg/dL Total Bilirubin (0.2-1.3) mg/dL AST (14-36) U/L ALT (0-35) U/L Alkaline Phosphatase (38-126) U/L Troponin I < 0.012 (0.000-0.034) ng/mL Serum Total Protein (6.3-8.2) g/dL Albumin (3.5-5.0) g/dL Amylase (30-110) U/L Lipase (23-300) U/L Urine Color YELLOW (YELLOW) Urine Appearance SLIGHTLY CLOUDY (CLEAR) Urine pH 5.0 (5-6) Ur Specific [place] 1.023 (1.005-1.025) Urine Protein NEGATIVE (Negative) Urine Ketones NEGATIVE (NEGATIVE) Urine Blood SMALL (0-5) Indra/ul Urine Nitrite NEGATIVE (NEGATIVE) Urine Bilirubin NEGATIVE (NEGATIVE) Urine Urobilinogen NEGATIVE (0-1) mg/dL Ur Leukocyte Esterase NEGATIVE (NEGATIVE) Urine WBC (Auto) 0-2 (0-5) /HPF Urine RBC (Auto) 3-5 (0-2) /HPF U Hyaline Cast (Auto) 11-25 (0-2) /LPF U Epithel Cells (Auto) NONE (FEW) /HPF Urine Bacteria (Auto) RARE (NEGATIVE) /HPF Urine Mucus (Auto) SLIGHT (NEGATIVE) /HPF Urine Culture Reflexed NO (NO) Urine Glucose NEGATIVE (NEGATIVE) mg/dL 03/16/20 03/16/20 03/16/20 Range/Units 19:15 19:11 19:11 WBC 13.2 H (4.0-10.5) K/mm3 RBC 2.93 L (4.1-5.4) M/mm3 Hgb 7.6 L (12.0-16.0) gm/dl Hct 26.5 L (35-47) % MCV 90.4 (78-100) fl MCH 25.9 L (26-32) pg MCHC 28.7 L (32-36) g/dl RDW 15.4 H (11.5-14.0) % Plt Count 870 H (150-450) K/mm3 MPV 9.6 (7.5-11.0) fl Gran % 81.7 H (36.0-66.0) % Eos # (Auto) 0.28 (0-0.5) Absolute Lymphs (auto) 1.12 (1.0-4.6) Absolute Monos (auto) 0.99 (0.0-1.3) Lymphocytes % 8.5 L (24.0-44.0) % Monocytes % 7.5 (0.0-12.0) % Eosinophils % 2.1 (0.00-5.0) % Basophils % 0.2 (0.0-0.4) % Absolute Granulocytes 10.76 H (1.4-6.9) Basophils # 0.02 (0-0.4) Sodium 135 L (137-145) mmol/L Potassium 3.5 (3.5-5.1) mmol/L Chloride 96 L (98-107) mmol/L Carbon Dioxide 29 (22-30) mmol/L Anion Gap 13.8 (5-15) MEQ/L BUN 19 H (7-17) mg/dL Creatinine 1.24 H (0.52-1.04) mg/dL Estimated GFR 46.3 ML/MIN Glucose 118 H (74-106) mg/dL Lactic Acid (0.4-2.0) Calcium 11.2 H (8.4-10.2) mg/dL Magnesium 1.9 (1.6-2.3) mg/dL Total Bilirubin 0.20 (0.2-1.3) mg/dL AST 13 L (14-36) U/L ALT 10 (0-35) U/L Alkaline Phosphatase 81 (38-126) U/L Troponin I (0.000-0.034) ng/mL Serum Total Protein 6.1 L (6.3-8.2) g/dL Albumin 3.3 L (3.5-5.0) g/dL Amylase 51 (30-110) U/L Lipase 115 (23-300) U/L Urine Color (YELLOW) Urine Appearance (CLEAR) Urine pH (5-6) Ur Specific [place] (1.005-1.025) Urine Protein (Negative) Urine Ketones (NEGATIVE) Urine Blood (0-5) Indra/ul Urine Nitrite (NEGATIVE) Urine Bilirubin (NEGATIVE) Urine Urobilinogen (0-1) mg/dL Ur Leukocyte Esterase (NEGATIVE) Urine WBC (Auto) (0-5) /HPF Urine RBC (Auto) (0-2) /HPF U Hyaline Cast (Auto) (0-2) /LPF U Epithel Cells (Auto) (FEW) /HPF Urine Bacteria (Auto) (NEGATIVE) /HPF Urine Mucus (Auto) (NEGATIVE) /HPF Urine Culture Reflexed (NO) Urine Glucose (NEGATIVE) mg/dL - Progress Progress: improved, re-examined Progress Note: 03/16/20 20:05 CAT scan of the abdomen and pelvis reveals tree-in-bud opacities in the mid and lower lung stevens bilaterally most consistent with either infectious process or other inflammatory process. She also has markedly enlarged fluid-filled stomach with decompressed C-loop of the duodenum most consistent with gastric outlet obstruction. There appears to be a possible lobulated mass or stricture in the region of the pylorus/proximal duodenum. Medical decision making: This patient has iron deficiency anemia and is taking iron 2-3 times daily. Her stools are chronically dark and when she has been vomiting is dark as well. 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 She found this out a year ago when she was sent to [facility] and a Dr. Lemon evaluated her. 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 Patient refuses a nasogastric tube at this time. Patient will be admitted into the hospital with IV hydration, transfusion of 2 units of packed red blood cells and repeat labs in the morning. She will require an upper endoscopy and likely a referral to her [place] surgeon. Counseled pt/family regarding: lab results, diagnosis, rad results - Departure Departure Disposition: In-patient Admission Clinical Impression: Vomiting, Symptomatic anemia, Gastric outlet obstruction, Duodenal mass Condition: Stable Critical Care Time: Yes Critical Care Time(excluding separately billable procedures): Critical 30-74 mins Referrals: NELL TENORIO MD [Primary Care Provider] -
[2020-03-16 19:14] LABS: Absolute Neutrophil Ct (ANC) 10.76 (1.4-6.9); BASOPHIL % 0.2 % (0.0-0.4); Basophil (Absolute #) 0.02 (0-0.4); Eosinophil % 2.1 % (0.00-5.0); Eosinophil (Absolute #) 0.28 (0-0.5); Hematocrit 26.5 % (35-47); Hemoglobin 7.6 gm/dl (12.0-16.0); Lymphocyte (Absolute #) 1.12 (1.0-4.6); Lymphocytes % 8.5 % (24.0-44.0); Mean Cell Volume 90.4 fl (78-100); Mean Corpuscular Hemoglobin 25.9 pg (26-32); Mean Corpuscular Hgb Concent. 28.7 g/dl (32-36); Mean Platelet Volume 9.6 fl (7.5-11.0); Monocyte (Absolute #) 0.99 (0.0-1.3); Monocytes % 7.5 % (0.0-12.0); Neutrophil % 81.7 % (36.0-66.0); Platelet Count 870 K/mm3 (150-450); Red Blood Count 2.93 M/mm3 (4.1-5.4); Red Cell Distribution Width 15.4 % (11.5-14.0); White Blood Count 13.2 K/mm3 (4.0-10.5)
[2020-03-16 19:19] LABS: ALBUMIN 3.3 g/dL (3.5-5.0); ANION GAP 13.8 MEQ/L (5-15); BILIRUBIN,TOTAL 0.2 mg/dL (0.2-1.3); Calcium 11.2 mg/dL (8.4-10.2); Creatinine 1 1.24 mg/dL (0.52-1.04); Potassium 3.5 mmol/L (3.5-5.1); Total Protein 6.1 g/dL (6.3-8.2)
[2020-03-16 20:14] LABS: Appearance SLIGHTLY CLOUDY (CLEAR); Bacteria RARE /HPF (NEGATIVE); Bilirubin NEGATIVE (NEGATIVE); Blood SMALL Ery/ul (0-5); Glucose NEGATIVE (NEGATIVE); Ketones NEGATIVE (NEGATIVE); Leukocyte Esterase NEGATIVE (NEGATIVE); Mucus SLIGHT /HPF (NEGATIVE); Nitrite NEGATIVE (NEGATIVE); Protein,Urine Dip NEGATIVE (Negative); Specific Gravity 1.023 (1.005-1.025); Urobilinogen NEGATIVE mg/dL (0-1); WBC 0-2 /HPF (0-5)
[2020-03-16] MEDS: Sodium Chloride 0.9% 1000 ML 1,000 ML IV SCH (20:19)
[2020-03-16] MEDS ORDERED: BENADRYL 50 MG/ML IV PRN (21:09)
[2020-03-16] MEDS ORDERED: Sodium Chloride 0.9% 1000 ML 1,000 ML IV SCH (21:09)
[2020-03-16] MEDS ORDERED: PROTONIX 40 MG IV IV SCH (21:09)
[2020-03-16] MEDS ORDERED: TYLENOL 325 MG PO PRN (21:09)
--- NOTE | 2020-03-16 21:09 | XRAY ---
Indication: Nausea and vomiting 2 weeks. Gastric reflux. Multiple contiguous axial images obtained through the abdomen and pelvis without contrast as ordered. Comparison: CTA abdomen/pelvis March 11, 2018. Lung bases demonstrates new patchy interstitial alveolar opacities bilaterally. No consolidation or effusion. Heart is not enlarged. Visualized distal esophagus is mildly fluid distended. Stomach is now dramatically fluid distended concerning for outlet obstruction. Query gastric pylorus mass. Noncontrasted small and large bowel loops appear nonobstructed. There is now mild diffuse scattered colonic fecal debris with mild rectal impaction. Stable descending and sigmoid diverticulosis. No free fluid/air. Remaining liver, gallbladder, pancreas, spleen, adrenal glands, kidneys, ureters, bladder, uterus, and aorta appear unremarkable for noncontrast exam. Osseous structures intact again with mild/moderate degenerative changes throughout the thoracolumbar spine and mild double curvature scoliosis. Impression: 1. New markedly fluid distended stomach concerning for outlet obstruction. Finding would also explain fluid distended distal esophagus. Query gastric pylorus mass. Recommend direct endoscopic evaluation. 2. New mild diffuse fecal stasis with mild rectal impaction. 3. Lung bases demonstrates new bilateral interstitial alveolar opacities. Rule out pneumonia. 4. Stable colonic diverticulosis and chronic bony findings. Comment: Preliminary interpretation was made by [facility]. No critical discrepancy.
[2020-03-16 21:24] LABS: ABO TYPING A; Antibody Screen NEGATIVE (NEGATIVE); RH TYPING NEGATIVE
[2020-03-16 21:26] LABS: CROSS MATCH (PRBC) COMPATIBLE (COMPATIBLE)
[2020-03-16 21:32] LABS: Slide Review 1 YES
[2020-03-17] MEDS: Sodium Chloride 0.9% 1000 ML 1,000 ML IV SCH (06:13)
[2020-03-17 06:50] LABS: Absolute Neutrophil Ct (ANC) 10.98 (1.4-6.9); BASOPHIL % 0.1 % (0.0-0.4); Basophil (Absolute #) 0.01 (0-0.4); Eosinophil % 1.6 % (0.00-5.0); Eosinophil (Absolute #) 0.21 (0-0.5); Hematocrit 29.4 % (35-47); Hemoglobin 8.7 gm/dl (12.0-16.0); Lymphocyte (Absolute #) 0.73 (1.0-4.6); Lymphocytes % 5.7 % (24.0-44.0); Mean Corpuscular Hemoglobin 26.9 pg (26-32); Mean Corpuscular Hgb Concent. 29.6 g/dl (32-36); Mean Platelet Volume 9.6 fl (7.5-11.0); Neutrophil % 85.6 % (36.0-66.0); Platelet Count 570 K/mm3 (150-450); Red Blood Count 3.23 M/mm3 (4.1-5.4); Red Cell Distribution Width 15.6 % (11.5-14.0); White Blood Count 12.8 K/mm3 (4.0-10.5)
[2020-03-17 06:58] LABS: ALBUMIN 2.6 g/dL (3.5-5.0); ANION GAP 10.2 MEQ/L (5-15); BILIRUBIN,TOTAL 0.8 mg/dL (0.2-1.3); Calcium 9.5 mg/dL (8.4-10.2); Creatinine 1 1.06 mg/dL (0.52-1.04); Potassium 3.7 mmol/L (3.5-5.1); Total Protein 5.1 g/dL (6.3-8.2)
[2020-03-17 08:33] VITALS: PULSE 73
[2020-03-17 12:50] VITALS: BP 118/58; O2SAT 97
--- NOTE | 2020-03-17 13:25 | PCM.SSS ---
History of Present Illness - Chief Complaint Chief Complaint: Symptomatic anemia History of Present Illness: is a 64 year old female pt of Dr. James with PMHx HTN, GERD, anemia (on Fe), and hypercalcemia who was admitted through ER with 2 wk hx of intermittent vomiting. She was found to have hgb of 7.[address] showing probable gastric outlet obstruction (enlarged fluid-filled stomach) with possible lobulated mass/stricture at the pylorus/proximal duodenum. Pt had respiratory illness apparently about 3 weeks ago, then started having intermittent nausea and/or vomiting 2 weeks ago. About a year ago in [place] pt was found to have scar tissue and was told she had had duodenal ulcers (by Dr. Lemon) - she was to f/u with him if she had any further issues ( no surgery done at that time). Pt's CT also showed new interstitial alveolar opacities in bilateral lung bases , but pt has absolutely no respiratory sx at this time. Pt is feeling good since admission, no vomiting since leaving the ER. She is "very hungry." she received 2 units PRBC and Hgb is now 8.7. Pt does not have any active bleeding and clinically looks very well. If she tolerates po well, will discharge her to home this evening to f/u with her surgeon in [place] tomorrow. Medications & Allergies Home Medications: Home Medication List Ferrous Sulfate 325 mg [Feosol 325 mg] 325 mg PO BID 03/09/18 [History Confirmed 03/16/20] Montelukast Sodium 10 mg [Singulair 10 MG] 10 mg PO HS 03/09/18 [History Confirmed 03/16/20] Metoprolol Tartrate 100 mg PO BID #60 tablet 03/14/18 [Rx Confirmed 03/16/20] Potassium Chloride 10 Meq Tab* [Klor Con 10 MEQ] 10 meq PO BID #60 tab [Rx Confirmed 03/16/20] Spironolactone 25 mg [Aldactone 25 MG] 25 mg PO BID #60 tablet 03/14/18 [ Rx Confirmed 03/16/20] Famotidine 20 mg [Pepcid 20 MG] 20 mg PO BID 03/30/18 [History Confirmed 03/16/20] Rabeprazole Sodium [Aciphex] 20 mg PO BID 03/30/18 [History Confirmed 03/16/20] Buspirone HCl [Buspar] 10 mg PO BIDPRN PRN 03/16/20 [History Confirmed 03/16/20] Fluticasone Propionate [Flonase NASAL] 0 gm NS DAILY 03/16/20 [History Confirmed 03/16/20] HydrALAzine HCL 25 MG TAB [Apresoline 25 MG TABLET] 25 mg PO TID 03/16/20 [History Confirmed 03/16/20] Allergies/Adverse Reactions: Allergies Allergy/AdvReac Type Severity Reaction Status Date / Time No Known Drug Allergies Allergy Verified 03/16/20 19:04 - Past Medical History Past Medical History: Yes Neurological History: No Pertinent History ENT History: No Pertinent History Cardiac History: Hypertension Respiratory History: Asthma Endocrine Medical History: No Pertinent History Musculoskelatal History: Arthritis GI Medical History: GERD, Other History: No Pertinent History Pyscho-Social History: No Pertinent History Reproductive Disorders: No Pertinent History Comment: anemia. hiatal hernia - Female History Are you now?: No - Past Surgical History Past Surgical History: Yes Neuro Surgical History: No Pertinent History Cardiac History: No Pertinent History Respiratory Surgery: No Pertinent History GI Surgical History: No Pertinent History Genitourinary Surgical Hx: No Pertinent History Musculskeletal Surgical Hx: No Pertinent History Female Surgical History: Tubal Ligation - Social History Smoking Status: Never smoker Exposure to second hand smoke: No Alcohol: None Drug Use: none - Physical Exam Vital Signs: Vital Signs - 24 hr Temp Pulse Resp BP Pulse Ox 03/17/20 12:00 98.1 F 73 16 118/58 97 03/17/20 08:00 98.2 F 73 16 99 03/17/20 07:27 98 03/17/20 04:00 98.6 F 78 18 105/65 92 L 03/17/20 00:00 16 03/16/20 21:45 98 H 18 98 03/16/20 21:30 98.1 F 100 H 18 121/79 97 03/16/20 20:23 97 03/16/20 20:21 100 H 20 121/79 99 03/16/20 19:52 102 H 18 109/75 100 03/16/20 19:10 98 H 18 143/86 100 03/16/20 18:44 98.1 F 120 H 20 121/86 97 Results - Labs Lab/Micro Results: Accuchecks Accucheck Value: 130 Lab Results-Last 24 Hours 03/16/20 03/16/20 03/16/20 Range/Units 19:11 19:11 19:15 WBC 13.2 H (4.0-10.5) K/mm3 RBC 2.93 L (4.1-5.4) M/mm3 Hgb 7.6 L (12.0-16.0) gm/dl Hct 26.5 L (35-47) % MCV 90.4 (78-100) fl MCH 25.9 L (26-32) pg MCHC 28.7 L (32-36) g/dl RDW 15.4 H (11.5-14.0) % Plt Count 870 H (150-450) K/mm3 MPV 9.6 (7.5-11.0) fl Gran % 81.7 H (36.0-66.0) % Eos # (Auto) 0.28 (0-0.5) Absolute Lymphs (auto) 1.12 (1.0-4.6) Absolute Monos (auto) 0.99 (0.0-1.3) Lymphocytes % 8.5 L (24.0-44.0) % Monocytes % 7.5 (0.0-12.0) % Eosinophils % 2.1 (0.00-5.0) % Basophils % 0.2 (0.0-0.4) % Absolute Granulocytes 10.76 H (1.4-6.9) Basophils # 0.02 (0-0.4) Sodium 135 L (137-145) mmol/L Potassium 3.5 (3.5-5.1) mmol/L Chloride 96 L (98-107) mmol/L Carbon Dioxide 29 (22-30) mmol/L Anion Gap 13.8 (5-15) MEQ/L BUN 19 H (7-17) mg/dL Creatinine 1.24 H (0.52-1.04) mg/dL Estimated GFR 46.3 ML/MIN Glucose 118 H (74-106) mg/dL Lactic Acid (0.4-2.0) Calcium 11.2 H (8.4-10.2) mg/dL Magnesium 1.9 (1.6-2.3) mg/dL Total Bilirubin 0.20 (0.2-1.3) mg/dL AST 13 L (14-36) U/L ALT 10 (0-35) U/L Alkaline Phosphatase 81 (38-126) U/L Troponin I (0.000-0.034) ng/mL Serum Total Protein 6.1 L (6.3-8.2) g/dL Albumin 3.3 L (3.5-5.0) g/dL Amylase 51 (30-110) U/L Lipase 115 (23-300) U/L Urine Color (YELLOW) Urine Appearance (CLEAR) Urine pH (5-6) Ur Specific [place] (1.005-1.025) Urine Protein (Negative) Urine Ketones (NEGATIVE) Urine Blood (0-5) Indra/ul Urine Nitrite (NEGATIVE) Urine Bilirubin (NEGATIVE) Urine Urobilinogen (0-1) mg/dL Ur Leukocyte Esterase (NEGATIVE) Urine WBC (Auto) (0-5) /HPF Urine RBC (Auto) (0-2) /HPF U Hyaline Cast (Auto) (0-2) /LPF U Epithel Cells (Auto) (FEW) /HPF Urine Bacteria (Auto) (NEGATIVE) /HPF Urine Mucus (Auto) (NEGATIVE) /HPF Urine Culture Reflexed (NO) Urine Glucose (NEGATIVE) mg/dL Slides for Path Review YES ABO Group Rh Factor Antibody Screen (NEGATIVE) Crossmatch (COMPATIBLE) 03/16/20 03/16/20 03/16/20 Range/Units 19:25 19:27 19:54 WBC (4.0-10.5) K/mm3 RBC (4.1-5.4) M/mm3 Hgb (12.0-16.0) gm/dl Hct (35-47) % MCV (78-100) fl MCH (26-32) pg MCHC (32-36) g/dl RDW (11.5-14.0) % Plt Count (150-450) K/mm3 MPV (7.5-11.0) fl Gran % (36.0-66.0) % Eos # (Auto) (0-0.5) Absolute Lymphs (auto) (1.0-4.6) Absolute Monos (auto) (0.0-1.3) Lymphocytes % (24.0-44.0) % Monocytes % (0.0-12.0) % Eosinophils % (0.00-5.0) % Basophils % (0.0-0.4) % Absolute Granulocytes (1.4-6.9) Basophils # (0-0.4) Sodium (137-145) mmol/L Potassium (3.5-5.1) mmol/L Chloride (98-107) mmol/L Carbon Dioxide (22-30) mmol/L Anion Gap (5-15) MEQ/L BUN (7-17) mg/dL Creatinine (0.52-1.04) mg/dL Estimated GFR ML/MIN Glucose (74-106) mg/dL Lactic Acid 1.7 (0.4-2.0) Calcium (8.4-10.2) mg/dL Magnesium (1.6-2.3) mg/dL Total Bilirubin (0.2-1.3) mg/dL AST (14-36) U/L ALT (0-35) U/L Alkaline Phosphatase (38-126) U/L Troponin I < 0.012 (0.000-0.034) ng/mL Serum Total Protein (6.3-8.2) g/dL Albumin (3.5-5.0) g/dL Amylase (30-110) U/L Lipase (23-300) U/L Urine Color YELLOW (YELLOW) Urine Appearance SLIGHTLY CLOUDY (CLEAR) Urine pH 5.0 (5-6) Ur Specific [place] 1.023 (1.005-1.025) Urine Protein NEGATIVE (Negative) Urine Ketones NEGATIVE (NEGATIVE) Urine Blood SMALL (0-5) Indra/ul Urine Nitrite NEGATIVE (NEGATIVE) Urine Bilirubin NEGATIVE (NEGATIVE) Urine Urobilinogen NEGATIVE (0-1) mg/dL Ur Leukocyte Esterase NEGATIVE (NEGATIVE) Urine WBC (Auto) 0-2 (0-5) /HPF Urine RBC (Auto) 3-5 (0-2) /HPF U Hyaline Cast (Auto) 11-25 (0-2) /LPF U Epithel Cells (Auto) NONE (FEW) /HPF Urine Bacteria (Auto) RARE (NEGATIVE) /HPF Urine Mucus (Auto) SLIGHT (NEGATIVE) /HPF Urine Culture Reflexed NO (NO) Urine Glucose NEGATIVE (NEGATIVE) mg/dL Slides for Path Review ABO Group Rh Factor Antibody Screen (NEGATIVE) Crossmatch (COMPATIBLE) 03/16/20 03/16/20 03/16/20 Range/Units 20:10 20:11 22:46 WBC (4.0-10.5) K/mm3 RBC (4.1-5.4) M/mm3 Hgb (12.0-16.0) gm/dl Hct (35-47) % MCV (78-100) fl MCH (26-32) pg MCHC (32-36) g/dl RDW (11.5-14.0) % Plt Count (150-450) K/mm3 MPV (7.5-11.0) fl Gran % (36.0-66.0) % Eos # (Auto) (0-0.5) Absolute Lymphs (auto) (1.0-4.6) Absolute Monos (auto) (0.0-1.3) Lymphocytes % (24.0-44.0) % Monocytes % (0.0-12.0) % Eosinophils % (0.00-5.0) % Basophils % (0.0-0.4) % Absolute Granulocytes (1.4-6.9) Basophils # (0-0.4) Sodium (137-145) mmol/L Potassium (3.5-5.1) mmol/L Chloride (98-107) mmol/L Carbon Dioxide (22-30) mmol/L Anion Gap (5-15) MEQ/L BUN (7-17) mg/dL Creatinine (0.52-1.04) mg/dL Estimated GFR ML/MIN Glucose (74-106) mg/dL Lactic Acid (0.4-2.0) Calcium (8.4-10.2) mg/dL Magnesium (1.6-2.3) mg/dL Total Bilirubin (0.2-1.3) mg/dL AST (14-36) U/L ALT (0-35) U/L Alkaline Phosphatase (38-126) U/L Troponin I < 0.012 (0.000-0.034) ng/mL Serum Total Protein (6.3-8.2) g/dL Albumin (3.5-5.0) g/dL Amylase (30-110) U/L Lipase (23-300) U/L Urine Color (YELLOW) Urine Appearance (CLEAR) Urine pH (5-6) Ur Specific [place] (1.005-1.025) Urine Protein (Negative) Urine Ketones (NEGATIVE) Urine Blood (0-5) Indra/ul Urine Nitrite (NEGATIVE) Urine Bilirubin (NEGATIVE) Urine Urobilinogen (0-1) mg/dL Ur Leukocyte Esterase (NEGATIVE) Urine WBC (Auto) (0-5) /HPF Urine RBC (Auto) (0-2) /HPF U Hyaline Cast (Auto) (0-2) /LPF U Epithel Cells (Auto) (FEW) /HPF Urine Bacteria (Auto) (NEGATIVE) /HPF Urine Mucus (Auto) (NEGATIVE) /HPF Urine Culture Reflexed (NO) Urine Glucose (NEGATIVE) mg/dL Slides for Path Review ABO Group A Rh Factor NEGATIVE Antibody Screen NEGATIVE (NEGATIVE) Crossmatch COMPATIBLE COMPATIBLE (COMPATIBLE) 03/17/20 03/17/20 Range/Units 05:05 05:05 WBC 12.8 H (4.0-10.5) K/mm3 RBC 3.23 L (4.1-5.4) M/mm3 Hgb 8.7 L (12.0-16.0) gm/dl Hct 29.4 L (35-47) % MCV 91.0 (78-100) fl MCH 26.9 (26-32) pg MCHC 29.6 L (32-36) g/dl RDW 15.6 H (11.5-14.0) % Plt Count 570 H D (150-450) K/mm3 MPV 9.6 (7.5-11.0) fl Gran % 85.6 H (36.0-66.0) % Eos # (Auto) 0.21 (0-0.5) Absolute Lymphs (auto) 0.73 L (1.0-4.6) Absolute Monos (auto) 0.90 (0.0-1.3) Lymphocytes % 5.7 L (24.0-44.0) % Monocytes % 7.0 (0.0-12.0) % Eosinophils % 1.6 (0.00-5.0) % Basophils % 0.1 (0.0-0.4) % Absolute Granulocytes 10.98 H (1.4-6.9) Basophils # 0.01 (0-0.4) Sodium 135 L (137-145) mmol/L Potassium 3.7 (3.5-5.1) mmol/L Chloride 101 (98-107) mmol/L Carbon Dioxide 28 (22-30) mmol/L Anion Gap 10.2 (5-15) MEQ/L BUN 20 H (7-17) mg/dL Creatinine 1.06 H (0.52-1.04) mg/dL Estimated GFR 55.5 ML/MIN Glucose 93 (74-106) mg/dL Lactic Acid (0.4-2.0) Calcium 9.5 D (8.4-10.2) mg/dL Magnesium (1.6-2.3) mg/dL Total Bilirubin 0.80 (0.2-1.3) mg/dL AST 12 L (14-36) U/L ALT 7 (0-35) U/L Alkaline Phosphatase 61 (38-126) U/L Troponin I (0.000-0.034) ng/mL Serum Total Protein 5.1 L (6.3-8.2) g/dL Albumin 2.6 L (3.5-5.0) g/dL Amylase (30-110) U/L Lipase (23-300) U/L Urine Color (YELLOW) Urine Appearance (CLEAR) Urine pH (5-6) Ur Specific [place] (1.005-1.025) Urine Protein (Negative) Urine Ketones (NEGATIVE) Urine Blood (0-5) Indra/ul Urine Nitrite (NEGATIVE) Urine Bilirubin (NEGATIVE) Urine Urobilinogen (0-1) mg/dL Ur Leukocyte Esterase (NEGATIVE) Urine WBC (Auto) (0-5) /HPF Urine RBC (Auto) (0-2) /HPF U Hyaline Cast (Auto) (0-2) /LPF U Epithel Cells (Auto) (FEW) /HPF Urine Bacteria (Auto) (NEGATIVE) /HPF Urine Mucus (Auto) (NEGATIVE) /HPF Urine Culture Reflexed (NO) Urine Glucose (NEGATIVE) mg/dL Slides for Path Review ABO Group Rh Factor Antibody Screen (NEGATIVE) Crossmatch (COMPATIBLE) Accuchecks Accucheck Value: 130 - Radiology Impressions Radiology Exams & Impressions: Radiology Procedures Category Date Time Status ABDOMEN AND PELVIS W/0 CONTRAS [CT] Stat Exams 03/16/20 19:08 Completed - Other Procedures and Tests Respiratory Therapy 03/16/20 21:49 Oxygen NASAL CANNULA 2 lpm Respiratory Therapy Assessment DAILY Assessment/Plan (1) Gastric outlet obstruction Current Visit: Yes Status: Acute Assessment & Plan: Pt had some known scar tissue 1 year ago; the sx are intermittent and currently she is feeling very well. If she tolerates po I think it's reasonable to discharge her to home to follow up with her surgeon by phone tomorrow. Code(s): K31.1 - ADULT HYPERTROPHIC PYLORIC STENOSIS (2) Symptomatic anemia Current Visit: Yes Status: Acute Assessment & Plan: After transfusion of 2 units PRBC, hgb from 7.6 to 8.7. She is feeling well. No signs of active bleeding. Code(s): D64.9 - ANEMIA, UNSPECIFIED (3) Vomiting Current Visit: Yes Status: Suspected Qualifiers: Vomiting type: unspecified Vomiting Intractability: non-intractable Nausea presence: unspecified Qualified Code(s): R11.10 - Vomiting, unspecified Assessment & Plan: No active vomiting. Code(s): R11.10 - VOMITING, UNSPECIFIED (4) GERD (gastroesophageal reflux disease) Current Visit: No Status: Chronic Qualifiers: Esophagitis presence: esophagitis presence not specified Qualified Code(s) : K21.9 - Gastro-esophageal reflux disease without esophagitis Code(s): K21.9 - GASTRO-ESOPHAGEAL REFLUX DISEASE WITHOUT ESOPHAGITIS Hospital Summary - Hospital Course Hospital Course: is a 64 year old female pt of Dr. James with PMHx HTN, GERD, anemia (on Fe), and hypercalcemia who was admitted through ER with 2 wk hx of intermittent vomiting. She was found to have hgb of 7.[address] showing probable gastric outlet obstruction (enlarged fluid-filled stomach) with possible lobulated mass/stricture at the pylorus/proximal duodenum. Pt had respiratory illness apparently about 3 weeks ago, then started having intermittent nausea and/or vomiting 2 weeks ago. About a year ago in [place] pt was found to have scar tissue and was told she had had duodenal ulcers (by Dr. Lemon) - she was to f/u with him if she had any further issues ( no surgery done at that time). Pt's CT also showed new interstitial alveolar opacities in bilateral lung bases , but pt has absolutely no respiratory sx at this time. Pt is feeling good since admission, no vomiting since leaving the ER. She is "very hungry." she received 2 units PRBC and Hgb is now 8.7. Pt does not have any active bleeding and clinically looks very well. If she tolerates po well, will discharge her to home this evening to f/u with her surgeon in [place] tomorrow. - Vitals & Intake/Output Vital Signs: Vital Signs Temperature 98.1 F 03/17/20 12:00 Pulse Rate 73 03/17/20 12:00 Respiratory Rate 16 03/17/20 12:00 Blood Pressure 118/58 03/17/20 12:00 O2 Sat by Pulse Oximetry 97 03/17/20 12:00 Intake & Output: Intake & Output 03/15/20 03/16/20 03/17/20 03/18/20 11:59 11:59 11:59 11:59 Intake Total 0 Balance 0 Weight 91.1 kg - Lab Result Diagrams: 03/17/20 05:05 03/17/20 05:05 Lab Results-Last 24 Hrs: Accuchecks Accucheck Value: 130 Lab Results-Last 24 Hours 03/16/20 03/16/20 03/16/20 Range/Units 19:11 19:11 19:15 WBC 13.2 H (4.0-10.5) K/mm3 RBC 2.93 L (4.1-5.4) M/mm3 Hgb 7.6 L (12.0-16.0) gm/dl Hct 26.5 L (35-47) % MCV 90.4 (78-100) fl MCH 25.9 L (26-32) pg MCHC 28.7 L (32-36) g/dl RDW 15.4 H (11.5-14.0) % Plt Count 870 H (150-450) K/mm3 MPV 9.6 (7.5-11.0) fl Gran % 81.7 H (36.0-66.0) % Eos # (Auto) 0.28 (0-0.5) Absolute Lymphs (auto) 1.12 (1.0-4.6) Absolute Monos (auto) 0.99 (0.0-1.3) Lymphocytes % 8.5 L (24.0-44.0) % Monocytes % 7.5 (0.0-12.0) % Eosinophils % 2.1 (0.00-5.0) % Basophils % 0.2 (0.0-0.4) % Absolute Granulocytes 10.76 H (1.4-6.9) Basophils # 0.02 (0-0.4) Sodium 135 L (137-145) mmol/L Potassium 3.5 (3.5-5.1) mmol/L Chloride 96 L (98-107) mmol/L Carbon Dioxide 29 (22-30) mmol/L Anion Gap 13.8 (5-15) MEQ/L BUN 19 H (7-17) mg/dL Creatinine 1.24 H (0.52-1.04) mg/dL Estimated GFR 46.3 ML/MIN Glucose 118 H (74-106) mg/dL Lactic Acid (0.4-2.0) Calcium 11.2 H (8.4-10.2) mg/dL Magnesium 1.9 (1.6-2.3) mg/dL Total Bilirubin 0.20 (0.2-1.3) mg/dL AST 13 L (14-36) U/L ALT 10 (0-35) U/L Alkaline Phosphatase 81 (38-126) U/L Troponin I (0.000-0.034) ng/mL Serum Total Protein 6.1 L (6.3-8.2) g/dL Albumin 3.3 L (3.5-5.0) g/dL Amylase 51 (30-110) U/L Lipase 115 (23-300) U/L Urine Color (YELLOW) Urine Appearance (CLEAR) Urine pH (5-6) Ur Specific [place] (1.005-1.025) Urine Protein (Negative) Urine Ketones (NEGATIVE) Urine Blood (0-5) Indra/ul Urine Nitrite (NEGATIVE) Urine Bilirubin (NEGATIVE) Urine Urobilinogen (0-1) mg/dL Ur Leukocyte Esterase (NEGATIVE) Urine WBC (Auto) (0-5) /HPF Urine RBC (Auto) (0-2) /HPF U Hyaline Cast (Auto) (0-2) /LPF U Epithel Cells (Auto) (FEW) /HPF Urine Bacteria (Auto) (NEGATIVE) /HPF Urine Mucus (Auto) (NEGATIVE) /HPF Urine Culture Reflexed (NO) Urine Glucose (NEGATIVE) mg/dL Slides for Path Review YES ABO Group Rh Factor Antibody Screen (NEGATIVE) Crossmatch (COMPATIBLE) 03/16/20 03/16/20 03/16/20 Range/Units 19:25 19:27 19:54 WBC (4.0-10.5) K/mm3 RBC (4.1-5.4) M/mm3 Hgb (12.0-16.0) gm/dl Hct (35-47) % MCV (78-100) fl MCH (26-32) pg MCHC (32-36) g/dl RDW (11.5-14.0) % Plt Count (150-450) K/mm3 MPV (7.5-11.0) fl Gran % (36.0-66.0) % Eos # (Auto) (0-0.5) Absolute Lymphs (auto) (1.0-4.6) Absolute Monos (auto) (0.0-1.3) Lymphocytes % (24.0-44.0) % Monocytes % (0.0-12.0) % Eosinophils % (0.00-5.0) % Basophils % (0.0-0.4) % Absolute Granulocytes (1.4-6.9) Basophils # (0-0.4) Sodium (137-145) mmol/L Potassium (3.5-5.1) mmol/L Chloride (98-107) mmol/L Carbon Dioxide (22-30) mmol/L Anion Gap (5-15) MEQ/L BUN (7-17) mg/dL Creatinine (0.52-1.04) mg/dL Estimated GFR ML/MIN Glucose (74-106) mg/dL Lactic Acid 1.7 (0.4-2.0) Calcium (8.4-10.2) mg/dL Magnesium (1.6-2.3) mg/dL Total Bilirubin (0.2-1.3) mg/dL AST (14-36) U/L ALT (0-35) U/L Alkaline Phosphatase (38-126) U/L Troponin I < 0.012 (0.000-0.034) ng/mL Serum Total Protein (6.3-8.2) g/dL Albumin (3.5-5.0) g/dL Amylase (30-110) U/L Lipase (23-300) U/L Urine Color YELLOW (YELLOW) Urine Appearance SLIGHTLY CLOUDY (CLEAR) Urine pH 5.0 (5-6) Ur Specific [place] 1.023 (1.005-1.025) Urine Protein NEGATIVE (Negative) Urine Ketones NEGATIVE (NEGATIVE) Urine Blood SMALL (0-5) Indra/ul Urine Nitrite NEGATIVE (NEGATIVE) Urine Bilirubin NEGATIVE (NEGATIVE) Urine Urobilinogen NEGATIVE (0-1) mg/dL Ur Leukocyte Esterase NEGATIVE (NEGATIVE) Urine WBC (Auto) 0-2 (0-5) /HPF Urine RBC (Auto) 3-5 (0-2) /HPF U Hyaline Cast (Auto) 11-25 (0-2) /LPF U Epithel Cells (Auto) NONE (FEW) /HPF Urine Bacteria (Auto) RARE (NEGATIVE) /HPF Urine Mucus (Auto) SLIGHT (NEGATIVE) /HPF Urine Culture Reflexed NO (NO) Urine Glucose NEGATIVE (NEGATIVE) mg/dL Slides for Path Review ABO Group Rh Factor Antibody Screen (NEGATIVE) Crossmatch (COMPATIBLE) 03/16/20 03/16/20 03/16/20 Range/Units 20:10 20:11 22:46 WBC (4.0-10.5) K/mm3 RBC (4.1-5.4) M/mm3 Hgb (12.0-16.0) gm/dl Hct (35-47) % MCV (78-100) fl MCH (26-32) pg MCHC (32-36) g/dl RDW (11.5-14.0) % Plt Count (150-450) K/mm3 MPV (7.5-11.0) fl Gran % (36.0-66.0) % Eos # (Auto) (0-0.5) Absolute Lymphs (auto) (1.0-4.6) Absolute Monos (auto) (0.0-1.3) Lymphocytes % (24.0-44.0) % Monocytes % (0.0-12.0) % Eosinophils % (0.00-5.0) % Basophils % (0.0-0.4) % Absolute Granulocytes (1.4-6.9) Basophils # (0-0.4) Sodium (137-145) mmol/L Potassium (3.5-5.1) mmol/L Chloride (98-107) mmol/L Carbon Dioxide (22-30) mmol/L Anion Gap (5-15) MEQ/L BUN (7-17) mg/dL Creatinine (0.52-1.04) mg/dL Estimated GFR ML/MIN Glucose (74-106) mg/dL Lactic Acid (0.4-2.0) Calcium (8.4-10.2) mg/dL Magnesium (1.6-2.3) mg/dL Total Bilirubin (0.2-1.3) mg/dL AST (14-36) U/L ALT (0-35) U/L Alkaline Phosphatase (38-126) U/L Troponin I < 0.012 (0.000-0.034) ng/mL Serum Total Protein (6.3-8.2) g/dL Albumin (3.5-5.0) g/dL Amylase (30-110) U/L Lipase (23-300) U/L Urine Color (YELLOW) Urine Appearance (CLEAR) Urine pH (5-6) Ur Specific [place] (1.005-1.025) Urine Protein (Negative) Urine Ketones (NEGATIVE) Urine Blood (0-5) Indra/ul Urine Nitrite (NEGATIVE) Urine Bilirubin (NEGATIVE) Urine Urobilinogen (0-1) mg/dL Ur Leukocyte Esterase (NEGATIVE) Urine WBC (Auto) (0-5) /HPF Urine RBC (Auto) (0-2) /HPF U Hyaline Cast (Auto) (0-2) /LPF U Epithel Cells (Auto) (FEW) /HPF Urine Bacteria (Auto) (NEGATIVE) /HPF Urine Mucus (Auto) (NEGATIVE) /HPF Urine Culture Reflexed (NO) Urine Glucose (NEGATIVE) mg/dL Slides for Path Review ABO Group A Rh Factor NEGATIVE Antibody Screen NEGATIVE (NEGATIVE) Crossmatch COMPATIBLE COMPATIBLE (COMPATIBLE) 03/17/20 03/17/20 Range/Units 05:05 05:05 WBC 12.8 H (4.0-10.5) K/mm3 RBC 3.23 L (4.1-5.4) M/mm3 Hgb 8.7 L (12.0-16.0) gm/dl Hct 29.4 L (35-47) % MCV 91.0 (78-100) fl MCH 26.9 (26-32) pg MCHC 29.6 L (32-36) g/dl RDW 15.6 H (11.5-14.0) % Plt Count 570 H D (150-450) K/mm3 MPV 9.6 (7.5-11.0) fl Gran % 85.6 H (36.0-66.0) % Eos # (Auto) 0.21 (0-0.5) Absolute Lymphs (auto) 0.73 L (1.0-4.6) Absolute Monos (auto) 0.90 (0.0-1.3) Lymphocytes % 5.7 L (24.0-44.0) % Monocytes % 7.0 (0.0-12.0) % Eosinophils % 1.6 (0.00-5.0) % Basophils % 0.1 (0.0-0.4) % Absolute Granulocytes 10.98 H (1.4-6.9) Basophils # 0.01 (0-0.4) Sodium 135 L (137-145) mmol/L Potassium 3.7 (3.5-5.1) mmol/L Chloride 101 (98-107) mmol/L Carbon Dioxide 28 (22-30) mmol/L Anion Gap 10.2 (5-15) MEQ/L BUN 20 H (7-17) mg/dL Creatinine 1.06 H (0.52-1.04) mg/dL Estimated GFR 55.5 ML/MIN Glucose 93 (74-106) mg/dL Lactic Acid (0.4-2.0) Calcium 9.5 D (8.4-10.2) mg/dL Magnesium (1.6-2.3) mg/dL Total Bilirubin 0.80 (0.2-1.3) mg/dL AST 12 L (14-36) U/L ALT 7 (0-35) U/L Alkaline Phosphatase 61 (38-126) U/L Troponin I (0.000-0.034) ng/mL Serum Total Protein 5.1 L (6.3-8.2) g/dL Albumin 2.6 L (3.5-5.0) g/dL Amylase (30-110) U/L Lipase (23-300) U/L Urine Color (YELLOW) Urine Appearance (CLEAR) Urine pH (5-6) Ur Specific [place] (1.005-1.025) Urine Protein (Negative) Urine Ketones (NEGATIVE) Urine Blood (0-5) Indra/ul Urine Nitrite (NEGATIVE) Urine Bilirubin (NEGATIVE) Urine Urobilinogen (0-1) mg/dL Ur Leukocyte Esterase (NEGATIVE) Urine WBC (Auto) (0-5) /HPF Urine RBC (Auto) (0-2) /HPF U Hyaline Cast (Auto) (0-2) /LPF U Epithel Cells (Auto) (FEW) /HPF Urine Bacteria (Auto) (NEGATIVE) /HPF Urine Mucus (Auto) (NEGATIVE) /HPF Urine Culture Reflexed (NO) Urine Glucose (NEGATIVE) mg/dL Slides for Path Review ABO Group Rh Factor Antibody Screen (NEGATIVE) Crossmatch (COMPATIBLE) Micro Results-Entire Visit: Accuchecks Accucheck Value: 130 - Radiology Exams Ordered Rad Exams-Entire Visit: Radiology Procedures Category Date Time Status ABDOMEN AND PELVIS W/0 CONTRAS [CT] Stat Exams 03/16/20 19:08 Completed - Procedures and Test Procedures and Tests throughout Hospitalization: Therapy Orders & Screens 03/16/20 21:49 Oxygen NASAL CANNULA 2 lpm Comment: Diagnosis: Symptomatic anemia Respiratory Therapy Assessment DAILY Comment: Diagnosis: Symptomatic anemia - Discharge Disposition: Home, Self-Care Condition: Stable Prescriptions: Continue Montelukast Sodium 10 mg [Singulair 10 MG] 10 mg PO HS Ferrous Sulfate 325 mg [Feosol 325 mg] 325 mg PO BID Spironolactone 25 mg [Aldactone 25 MG] 25 mg PO BID #60 tablet Potassium Chloride 10 Meq Tab* [Klor Con 10 MEQ] 10 meq PO BID #60 tab Metoprolol Tartrate 100 mg PO BID #60 tablet Famotidine 20 mg [Pepcid 20 MG] 20 mg PO BID Rabeprazole Sodium [Aciphex] 20 mg PO BID Fluticasone Propionate [Flonase NASAL] 0 gm NS DAILY HydrALAzine HCL 25 MG TAB [Apresoline 25 MG TABLET] 25 mg PO TID Buspirone HCl [Buspar] 10 mg PO BIDPRN PRN PRN Reason: Anxiety Additional Instructions: Avoid NSAIDs (ibuprofen, Advil, naproxen, Aleve). Return to ER [facility] for any vomiting of blood (red or like coffee grounds) or blood in stool, whether it's bright red, maroon, or dark and tarry - bleeding from the colon can quickly cause serious blood loss. Also return to ER for dizziness or passing out, fever, abdominal pain, or any other worrisome symptom. Follow up with: NELL TENORIO MD [Primary Care Provider] - 1 Week
[2020-03-17] MEDS ORDERED: Lopressor 50 MG PO SCH (22:00)
[2020-03-17] MEDS ORDERED: NON-FORMULARY ITEM (Metoprolol Tartrate [Metoprolol Tartrate] 100 MG) PO SCH (22:00)
[2020-03-18] MEDS ORDERED: Flonase NASAL NS PRN (10:00)
== END 2020-03-17 15:30 | disposition home or self-care (01) | DRG 382 ==
LOC: ED 18:42 → MED SURG 20:55
PROVIDERS: ADMIT Family Medicine; ATTEND Family Medicine
DX: K31.1 Adult hypertrophic pyloric stenosis (principal); K44.9 Diaphragmatic hernia without obstruction or gangrene; D64.9 Anemia, unspecified; I10 Essential (primary) hypertension; K21.9 Gastro-esophageal reflux disease without esophagitis; R11.10 Vomiting, unspecified; E83.52 Hypercalcemia; Z79.899 Other long term (current) drug therapy
CPT/HCPCS: 36000; 36415; 36430; 74176; 80053; 81001; 82150; 82962; 83605; 83690; 83735; 84484; 85025; 86850; 86900; 86901; 86922; 93005; 94760; 94762; 96360; 96361; 96374; 96375; 96376; 99285; 99291; J2405; P9016; P9612; A9270-GY

== ENCOUNTER 2020-03-31 18:41 | Emergency (ER) | payer OTHER ==
[2020-03-31] MEDS ORDERED: Sodium Chloride 0.9% 1000 ML 1,000 ML IV STA (19:45)
[2020-03-31] MEDS ORDERED: PROTONIX 40 MG IV IV ONE ×3 (19:45→22:46)
[2020-03-31] MEDS ORDERED: Zofran 4 MG/2 ML VIAL IV ONE (19:45)
[2020-03-31] MEDS ORDERED: Zofran 4 MG/2 ML VIAL ONE (20:01)
[2020-03-31] MEDS ORDERED: Sodium Chloride 0.9% 1000 ML 0 ML ONE (20:01)
--- NOTE | 2020-03-31 20:10 | ERPHSYRPT ---
- History of Present Illness Time Seen by Provider: 03/31/20 19:34 Source: patient, family Patient Subjective Stated Complaint: The patient states that she has had a history of ulcers and blockages in her small intestine that have caused dehydration and weakness that has been worsening since this winter. The patient has scar tissue on her intestines from past ulcers. The patient has consulted wi th a surgeon who was wanting to wait before any intervention but the patient states that it has become worse. Patient is unable to eat and drinks with difficulty. The patient has recently had a blood transfusion and admission at [facility], about two weeks ago. The patient has been vomiting "coffee ground" emesis about every day. The patient is awaiting an appointment on the 09 of April at [facility] in [place]. Today, the patient and got out of the house and went on a drive. While they were gone, the patient began feeling worse, weak and dehydrated, and reports coughing up black flem. Triage Nursing Assessment: The patient is alert and oriented, pale in color, heart rate is regular and lungs are clear. No edema noted. Patient is not having any pain in abdomen or otherwise. Bowel sounds are Physician History: 64 years old female with history of hypertension, multiple duodenal ulcers with scar tissue and gastric outlet obstruction with multiple scopes done in the past, chronic anemia scheduled to have repeat upper GI scope and possible surgical intervention later this month presented in the ER with chief complaint of vomiting along with generalized weakness and fatigue. Patient feels dehydrated. Patient reports she is been not able to hold much down and it comes back up. She is having coffee-ground emesis. This is not a new problem and has been going on for quite some time. Denies any abdominal pain. No fever or chills reported. Patient feels drained to the point that she cannot do her routine activities. Patient was recently admitted to hospital with anemia and was given 2 units transfusion almost 2 weeks ago. Timing/Duration: week(s), gradual onset, worse Severity: moderate Associated Symptoms: nausea, vomiting, weakness, No abdominal pain, No chest pain, No fever Allergies/Adverse Reactions: No Known Drug Allergies Allergy (Verified 03/31/20 19:58) Home Medications: Ferrous Sulfate 325 mg [Feosol 325 mg] 325 mg PO BID 03/09/18 [History] Montelukast Sodium 10 mg [Singulair 10 MG] 10 mg PO HS 03/09/18 [History] Famotidine 20 mg [Pepcid 20 MG] 20 mg PO BID 03/30/18 [History] Rabeprazole Sodium [Aciphex] 20 mg PO BID 03/30/18 [History] Buspirone HCl [Buspar] 10 mg PO BIDPRN PRN 03/16/20 [History] Fluticasone Propionate [Flonase NASAL] 0 gm NS DAILY 03/16/20 [History] HydrALAzine HCL 25 MG TAB [Apresoline 25 MG TABLET] 25 mg PO TID 03/16/20 [History] Hx Tetanus, Diphtheria Vaccination/Date Given: No Hx Influenza Vaccination/Date Given: No Hx Pneumococcal Vaccination/Date Given: No Immunizations Up to Date: Yes Travel Risk - International Travel Have you traveled outside of the country in past 3 weeks: No If Yes, where;: N - Coronavirus Screening Are you exhibiting any of the following symptoms?: No Close contact with a COVID-19 positive Pt in past 14-21 Days: No - Review of Systems Constitutional: Fatigue, Weakness Eyes: No Symptoms Ears, Nose, & Throat: No Symptoms Respiratory: No Symptoms Cardiac: No Symptoms Abdominal/Gastrointestinal: Nausea, Vomiting, Melena Genitourinary Symptoms: No Symptoms Musculoskeletal: No Symptoms Skin: No Symptoms Neurological: No Symptoms Psychological: No Symptoms Endocrine: No Symptoms Hematologic/Lymphatic: No Symptoms Immunological/Allergic: No Symptoms - Past Medical History Pertinent Past Medical History: Yes Neurological History: No Pertinent History ENT History: No Pertinent History Cardiac History: Hypertension Respiratory History: Asthma Endocrine Medical History: No Pertinent History Musculoskeletal History: Arthritis GI Medical History: GERD, Other History: No Pertinent History Psycho-Social History: No Pertinent History Female Reproductive Disorders: No Pertinent History Other Medical History: anemia. hiatal hernia. ulcer - Past Surgical History Past Surgical History: Yes Neuro Surgical History: No Pertinent History Cardiac: No Pertinent History Respiratory: No Pertinent History Gastrointestinal: No Pertinent History Genitourinary: No Pertinent History Musculoskeletal: No Pertinent History Female Surgical History: Tubal Ligation - Social History Smoking Status: Never smoker Exposure to second hand smoke: No Drug Use: none Patient Lives Alone: No - Nursing Vital Signs Nursing Vital Signs: Initial Vital Signs Temperature 98.3 F 03/31/20 19:21 Pulse Rate 111 H 03/31/20 19:21 Respiratory Rate 18 03/31/20 19:21 Blood Pressure 118/90 03/31/20 19:21 O2 Sat by Pulse Oximetry 97 03/31/20 19:21 Pain Scale Pain Intensity 0 - Physical Exam General Appearance: no apparent distress Eye Exam: PERRL/EOMI, pale conjunctivae Ears, Nose, Throat Exam: normal ENT inspection, TMs normal, pharynx normal Neck Exam: normal inspection, supple, full range of motion Respiratory Exam: normal breath sounds, lungs clear Cardiovascular Exam: regular rate/rhythm, normal heart sounds, normal peripheral pulses Gastrointestinal/Abdomen Exam: soft, normal bowel sounds, No tenderness Back Exam: normal inspection Extremity Exam: normal inspection, normal range of motion Neurologic Exam: alert, oriented x 3, cooperative, floor manager II-XII nml as tested Skin Exam: normal color, warm SpO2 Interpretation: normal SpO2: 97 O2 Delivery: Room Air - Course Nursing assessment & vital signs reviewed: Yes EKG Interpreted by Me: RATE, Sinus Tach, NORMAL AXIS (116), NORMAL INTERVALS, Non-specific ST Changes Ordered Tests: Active Orders 24 hr Category Date Time Status EKG-ER Only STAT Care 03/31/20 19:45 Active IV Insertion STAT Care 03/31/20 19:45 Active ABDOMEN 2 VIEW Stat Exams 03/31/20 19:46 Taken AMYLASE Stat Lab 03/31/20 20:12 Completed CBC W DIFF Stat Lab 03/31/20 20:12 Completed CMP Stat Lab 03/31/20 20:12 Completed LIPASE Stat Lab 03/31/20 20:12 Completed PT INR [PROTIME WITH INR] Stat Lab 03/31/20 20:00 Completed PTT Stat Lab 03/31/20 20:00 Completed TROPONIN Q3H Lab 03/31/20 20:12 Completed TROPONIN Q3H Lab 03/31/20 22:54 Completed Medication Summary Generic Name Dose Route Start Last Admin Trade Name Freq PRN Reason Stop Dose Admin Pantoprazole Sodium 80 mg/ 500 mls @ 50 mls/hr 03/31/20 22:15 03/31/20 22:57 Sodium Chloride IV 04/30/20 22:14 50 mls/hr .Q10H YANA 50 mls/hr Administration Sodium Chloride 1,000 mls @ 100 mls/hr 03/31/20 22:15 03/31/20 22:56 Sodium Chloride 0.9% 1000 Ml IV 04/30/20 22:14 100 mls/hr .Q10H YANA Administration Discontinued Medications Generic Name Dose Route Start Last Admin Trade Name Eric PRN Reason Stop Dose Admin Sodium Chloride 1,000 mls @ 999 mls/hr 03/31/20 19:45 03/31/20 23:24 Sodium Chloride 0.9% 1000 Ml IV 03/31/20 20:45 Infused .Q1H1M STA Infusion Sodium Chloride Confirm 03/31/20 20:01 Sodium Chloride 0.9% 1000 Ml Administered 03/31/20 20:02 Dose 1,000 mls @ ud .ROUTE .STK-MED ONE Sodium Chloride Confirm 03/31/20 22:46 Sodium Chloride 0.9% 500 Ml Administered 03/31/20 22:47 Dose 500 mls @ ud IV .STK-MED ONE Ondansetron HCl 4 mg 03/31/20 19:45 03/31/20 20:03 Zofran 4 Mg/2 Ml Vial IV 03/31/20 19:46 4 mg STAT ONE Administration Ondansetron HCl Confirm 03/31/20 20:01 Zofran 4 Mg/2 Ml Vial Administered 03/31/20 20:02 Dose 4 mg .ROUTE .STK-MED ONE Pantoprazole Sodium 40 mg 03/31/20 19:45 03/31/20 20:03 Protonix 40 Mg Iv IV 03/31/20 19:46 40 mg STAT ONE Administration Pantoprazole Sodium Confirm 03/31/20 20:01 Protonix 40 Mg Iv Administered 03/31/20 20:02 Dose 40 mg IV .STK-MED ONE Pantoprazole Sodium Confirm 03/31/20 22:46 Protonix 40 Mg Iv Administered 03/31/20 22:47 Dose 80 mg IV .STK-MED ONE Lab/Rad Data: Laboratory Result Diagrams 03/31/20 20:12 03/31/20 20:12 Laboratory Results 03/31/20 03/31/20 03/31/20 Range/Units 22:54 22:54 22:54 WBC (4.0-10.5) K/mm3 RBC (4.1-5.4) M/mm3 Hgb (12.0-16.0) gm/dl Hct (35-47) % MCV (78-100) fl MCH (26-32) pg MCHC (32-36) g/dl RDW (11.5-14.0) % Plt Count (150-450) K/mm3 MPV (7.5-11.0) fl Gran % (36.0-66.0) % Eos # (Auto) (0-0.5) Absolute Lymphs (auto) (1.0-4.6) Absolute Monos (auto) (0.0-1.3) Lymphocytes % (24.0-44.0) % Monocytes % (0.0-12.0) % Eosinophils % (0.00-5.0) % Basophils % (0.0-0.4) % Absolute Granulocytes (1.4-6.9) Basophils # (0-0.4) PT (9.95-12.35) SECONDS INR (0.8-3.0) APTT (25.3-37.0) SECONDS Sodium (137-145) mmol/L Potassium (3.5-5.1) mmol/L Chloride (98-107) mmol/L Carbon Dioxide (22-30) mmol/L Anion Gap (5-15) MEQ/L BUN (7-17) mg/dL Creatinine (0.52-1.04) mg/dL Estimated GFR ML/MIN Glucose (74-106) mg/dL Calcium (8.4-10.2) mg/dL Total Bilirubin (0.2-1.3) mg/dL AST (14-36) U/L ALT (0-35) U/L Alkaline Phosphatase (38-126) U/L Troponin I < 0.012 (0.000-0.034) ng/mL Serum Total Protein (6.3-8.2) g/dL Albumin (3.5-5.0) g/dL Amylase (30-110) U/L Lipase (23-300) U/L ABO Group Rh Factor Antibody Screen (NEGATIVE) Crossmatch COMPATIBLE COMPATIBLE (COMPATIBLE) 03/31/20 03/31/20 03/31/20 Range/Units 22:52 20:12 20:12 WBC (4.0-10.5) K/mm3 RBC (4.1-5.4) M/mm3 Hgb (12.0-16.0) gm/dl Hct (35-47) % MCV (78-100) fl MCH (26-32) pg MCHC (32-36) g/dl RDW (11.5-14.0) % Plt Count (150-450) K/mm3 MPV (7.5-11.0) fl Gran % (36.0-66.0) % Eos # (Auto) (0-0.5) Absolute Lymphs (auto) (1.0-4.6) Absolute Monos (auto) (0.0-1.3) Lymphocytes % (24.0-44.0) % Monocytes % (0.0-12.0) % Eosinophils % (0.00-5.0) % Basophils % (0.0-0.4) % Absolute Granulocytes (1.4-6.9) Basophils # (0-0.4) PT (9.95-12.35) SECONDS INR (0.8-3.0) APTT (25.3-37.0) SECONDS Sodium 133 L (137-145) mmol/L Potassium 3.1 L (3.5-5.1) mmol/L Chloride 94 L (98-107) mmol/L Carbon Dioxide 30 (22-30) mmol/L Anion Gap 13.1 (5-15) MEQ/L BUN 21 H (7-17) mg/dL Creatinine 1.26 H (0.52-1.04) mg/dL Estimated GFR 45.4 ML/MIN Glucose 120 H (74-106) mg/dL Calcium 9.4 (8.4-10.2) mg/dL Total Bilirubin 0.20 (0.2-1.3) mg/dL AST 12 L (14-36) U/L ALT 8 (0-35) U/L Alkaline Phosphatase 97 (38-126) U/L Troponin I < 0.012 (0.000-0.034) ng/mL Serum Total Protein 5.9 L (6.3-8.2) g/dL Albumin 2.9 L (3.5-5.0) g/dL Amylase 39 (30-110) U/L Lipase 63 (23-300) U/L ABO Group A Rh Factor NEGATIVE Antibody Screen NEGATIVE (NEGATIVE) Crossmatch (COMPATIBLE) 03/31/20 03/31/20 Range/Units 20:12 20:00 WBC 10.4 (4.0-10.5) K/mm3 RBC 3.00 L (4.1-5.4) M/mm3 Hgb 7.9 L (12.0-16.0) gm/dl Hct 26.4 L (35-47) % MCV 88.0 (78-100) fl MCH 26.3 (26-32) pg MCHC 29.9 L (32-36) g/dl RDW 15.5 H (11.5-14.0) % Plt Count 805 H (150-450) K/mm3 MPV 9.9 (7.5-11.0) fl Gran % 76.8 H (36.0-66.0) % Eos # (Auto) 0.25 (0-0.5) Absolute Lymphs (auto) 1.15 (1.0-4.6) Absolute Monos (auto) 0.99 (0.0-1.3) Lymphocytes % 11.1 L (24.0-44.0) % Monocytes % 9.5 (0.0-12.0) % Eosinophils % 2.4 (0.00-5.0) % Basophils % 0.2 (0.0-0.4) % Absolute Granulocytes 7.96 H (1.4-6.9) Basophils # 0.02 (0-0.4) PT 12.7 H (9.95-12.35) SECONDS INR 1.12 (0.8-3.0) APTT 31.2 (25.3-37.0) SECONDS Sodium (137-145) mmol/L Potassium (3.5-5.1) mmol/L Chloride (98-107) mmol/L Carbon Dioxide (22-30) mmol/L Anion Gap (5-15) MEQ/L BUN (7-17) mg/dL Creatinine (0.52-1.04) mg/dL Estimated GFR ML/MIN Glucose (74-106) mg/dL Calcium (8.4-10.2) mg/dL Total Bilirubin (0.2-1.3) mg/dL AST (14-36) U/L ALT (0-35) U/L Alkaline Phosphatase (38-126) U/L Troponin I (0.000-0.034) ng/mL Serum Total Protein (6.3-8.2) g/dL Albumin (3.5-5.0) g/dL Amylase (30-110) U/L Lipase (23-300) U/L ABO Group Rh Factor Antibody Screen (NEGATIVE) Crossmatch (COMPATIBLE) - Progress Progress: unchanged, re-examined Progress Note: 03/31/20 22:26 64 years old is evaluated for generalized weakness fatigue along with coffee- ground emesis. Patient is given IV Protonix and started on drip along with gentle hydration. Abdomen is soft nontender and plain films are negative for any obstruction/perforation. Patient has gastric outlet obstruction with some duodenal ulcers which probably are bleeding and her hemoglobin dropped again to 7.9. Typed and crossmatched [address] Rodriguez who recommended transfer to . Discussed with Dr. Lemon at and patient is accepted for transfer and recommended starting transfusions here. Risk and benefits of transfusions discussed with patient and family who understand and want to go ahead with it. Plan of transfer discussed with patient and family who understand and agree with it. 04/01/20 06:13 Patient has been given first unit of blood and she tolerated very well. Still waiting on pending transfer. Discussed with .: Kaila, Other ( ) Counseled pt/family regarding: lab results, diagnosis, rad results - Departure Departure Disposition: Transfer Clinical Impression: Gastric outlet obstruction, Hypokalemia, Symptomatic anemia, HANS (acute kidney injury) GI bleed Qualifiers: GI bleed type/associated pathology: unspecified gastrointestinal hemorrhage type Qualified Code(s): K92.2 - Gastrointestinal hemorrhage, unspecified Condition: Fair Critical Care Time: Yes Critical Care Time(excluding separately billable procedures): Critical 30-74 mins Referrals: NELL RODRIGUEZ MD [Primary Care Provider] -
[2020-03-31 20:16] LABS: Absolute Neutrophil Ct (ANC) 7.96 (1.4-6.9); BASOPHIL % 0.2 % (0.0-0.4); Basophil (Absolute #) 0.02 (0-0.4); Eosinophil % 2.4 % (0.00-5.0); Eosinophil (Absolute #) 0.25 (0-0.5); Hematocrit 26.4 % (35-47); Hemoglobin 7.9 gm/dl (12.0-16.0); Lymphocyte (Absolute #) 1.15 (1.0-4.6); Lymphocytes % 11.1 % (24.0-44.0); Mean Corpuscular Hemoglobin 26.3 pg (26-32); Mean Corpuscular Hgb Concent. 29.9 g/dl (32-36); Mean Platelet Volume 9.9 fl (7.5-11.0); Monocyte (Absolute #) 0.99 (0.0-1.3); Monocytes % 9.5 % (0.0-12.0); Neutrophil % 76.8 % (36.0-66.0); Platelet Count 805 K/mm3 (150-450); Red Cell Distribution Width 15.5 % (11.5-14.0); White Blood Count 10.4 K/mm3 (4.0-10.5)
[2020-03-31 20:29] LABS: ALBUMIN 2.9 g/dL (3.5-5.0); ANION GAP 13.1 MEQ/L (5-15); BILIRUBIN,TOTAL 0.2 mg/dL (0.2-1.3); Calcium 9.4 mg/dL (8.4-10.2); Creatinine 1 1.26 mg/dL (0.52-1.04); Potassium 3.1 mmol/L (3.5-5.1); Total Protein 5.9 g/dL (6.3-8.2)
[2020-03-31] MEDS ORDERED: Sodium Chloride 0.9% 1000 ML 1,000 ML IV SCH (22:15)
[2020-03-31] MEDS ORDERED: PROTONIX 40 MG IV*** 80 MG in Sodium Chloride 0.9% 500 ML 500 ML IV SCH (22:15)
[2020-03-31] MEDS ORDERED: Sodium Chloride 0.9% 500 ML 500 ML IV ONE (22:46)
[2020-03-31] MEDS ORDERED: Sodium Chloride 0.9% 1000 ML 1,000 ML ONE (22:46)
[2020-03-31 22:55] LABS: INR 1.12 (0.8-3.0); PROTIME 12.7 SECONDS (9.95-12.35)
[2020-03-31 22:58] LABS: PTT 31.2 SECONDS (25.3-37.0)
[2020-03-31 23:33] LABS: ABO TYPING A; Antibody Screen NEGATIVE (NEGATIVE); RH TYPING NEGATIVE
[2020-04-01] MEDS ORDERED: Sodium Chloride 0.9% 1000 ML 1,000 ML ONE (00:04)
--- NOTE | 2020-04-01 08:57 | XRAY ---
Indication: Abdomen pain. Comparison: None 2 view abdomen nonobstructed with moderate diffuse scattered colonic fecal debris throughout including rectum. A few splenic calcified granulomas. Remaining solid organs unremarkable. Osseous structures intact with moderate multilevel degenerative spondylosis and moderate lumbar levorotoscoliosis centered at L3. Impression: Fecal stasis.
[2020-04-01 14:54] VITALS: BP 116/98; PULSE 84
[2020-04-01 15:35] VITALS: O2SAT 98
== END 2020-04-01 15:40 | disposition short-term general hospital (02) ==
LOC: ED 18:41
DX: K31.1 Adult hypertrophic pyloric stenosis (principal); E87.6 Hypokalemia; D64.89 Other specified anemias; N17.9 Acute kidney failure, unspecified; I10 Essential (primary) hypertension; Z79.899 Other long term (current) drug therapy; J45.909 Unspecified asthma, uncomplicated; K21.9 Gastro-esophageal reflux disease without esophagitis
CPT/HCPCS: 36430; 74021; 80053; 82150; 83690; 84484; 85025; 85610; 85730; 86850; 86900; 86901; 86922; 93005; 96360; 96365; 96374; 96375; 99291; P9016; 36000; 36415; 99285; J2405

== ENCOUNTER 2020-04-27 13:52 | Emergency (ER) | payer OTHER ==
[2020-04-27] MEDS ORDERED: Sodium Chloride 0.9% 1000 ML 1,000 ML IV STA (14:57)
[2020-04-27] MEDS ORDERED: Zofran 4 MG/2 ML VIAL IV ONE (14:57)
[2020-04-27] MEDS ORDERED: Sodium Chloride 0.9% 1000 ML 1,000 ML ONE ×2 (15:04→18:08)
[2020-04-27] MEDS ORDERED: Zofran 4 MG/2 ML VIAL ONE (15:04)
[2020-04-27 15:26] LABS: Hematocrit 31.8 % (35-47); Hemoglobin 9.4 gm/dl (12.0-16.0); Mean Cell Volume 88.3 fl (78-100); Mean Corpuscular Hemoglobin 26.1 pg (26-32); Mean Corpuscular Hgb Concent. 29.6 g/dl (32-36); Mean Platelet Volume 9.2 fl (7.5-11.0); Platelet Count 880 K/mm3 (150-450); Red Cell Distribution Width 18.8 % (11.5-14.0); White Blood Count 17.3 K/mm3 (4.0-10.5)
--- NOTE | 2020-04-27 15:26 | ERPHSYRPT ---
- History of Present Illness Time Seen by Provider: 04/27/20 14:40 Source: patient Exam Limitations: no limitations Patient Subjective Stated Complaint: Pt had abdominal surgery on 04/04/2020 due to a stricture and they removed the lower part of her abdomen, duodenom and and some small intestines, has been doing good until last night around 2200, has vomited approx 10 times today Triage Nursing Assessment: Pt brought to the ER by her daughter, denies pain, denies pain of the abdomen, tachycardic, incision sight looks well, bowel sounds heard throughout but hypoactive in the LUQ, pulses normal, pt belching Physician History: 64 years old female with history of hypertension, duodenal strictures/gastric outlet obstruction status post surgical resection anastomosis almost a month ago presented in the ER with chief complaint of sudden onset nonprojectile, nonbilious vomiting since yesterday. Denies any hematemesis or coffee-ground emesis. Denies abdominal pain. Patient is not able to hold anything down, feeling dehydrated. Denies any abdominal distention. Denies any recent fever chills or sick contact. Timing/Duration: yesterday, intermittent, sudden, worse Severity: moderate Modifying Factors: Improves With: nothing Associated Symptoms: nausea, vomiting, weakness Allergies/Adverse Reactions: No Known Drug Allergies Allergy (Verified 04/27/20 14:17) Home Medications: Ferrous Sulfate 325 mg [Feosol 325 mg] 325 mg PO BID 03/09/18 [History] Montelukast Sodium 10 mg [Singulair 10 MG] 10 mg PO HS 03/09/18 [History] Fluticasone Propionate [Flonase NASAL] 0 gm NS DAILY 03/16/20 [History] Hx Tetanus, Diphtheria Vaccination/Date Given: No Hx Influenza Vaccination/Date Given: No Hx Pneumococcal Vaccination/Date Given: No Travel Risk - International Travel If Yes, where;: N - Coronavirus Screening Close contact with a COVID-19 positive Pt in past 14-21 Days: No - Review of Systems Constitutional: No Symptoms Eyes: No Symptoms Ears, Nose, & Throat: No Symptoms Respiratory: No Symptoms Cardiac: No Symptoms Abdominal/Gastrointestinal: Nausea, Vomiting Genitourinary Symptoms: No Symptoms Musculoskeletal: No Symptoms Skin: No Symptoms Neurological: No Symptoms Psychological: No Symptoms Endocrine: No Symptoms Hematologic/Lymphatic: No Symptoms Immunological/Allergic: No Symptoms - Past Medical History Pertinent Past Medical History: Yes Neurological History: No Pertinent History ENT History: No Pertinent History Cardiac History: Hypertension Respiratory History: Asthma Endocrine Medical History: No Pertinent History Musculoskeletal History: Arthritis GI Medical History: GERD, Other History: No Pertinent History Psycho-Social History: No Pertinent History Female Reproductive Disorders: No Pertinent History Other Medical History: anemia. hiatal hernia. ulcer. stricture - Past Surgical History Past Surgical History: Yes Neuro Surgical History: No Pertinent History Cardiac: No Pertinent History Respiratory: No Pertinent History Gastrointestinal: No Pertinent History Genitourinary: No Pertinent History Musculoskeletal: No Pertinent History Female Surgical History: Tubal Ligation Other Surgical History: gastric outlet obstruction - Social History Smoking Status: Never smoker Exposure to second hand smoke: No Drug Use: none Patient Lives Alone: No - Female History Hx Now: No - Nursing Vital Signs Nursing Vital Signs: Initial Vital Signs Temperature 97.8 F 04/27/20 14:04 Pulse Rate 126 H 04/27/20 14:04 Blood Pressure 121/100 04/27/20 14:04 O2 Sat by Pulse Oximetry 96 04/27/20 14:04 Pain Scale Pain Intensity 0 - Physical Exam General Appearance: no apparent distress, alert Eye Exam: PERRL/EOMI, eyes nml inspection Ears, Nose, Throat Exam: normal ENT inspection, pharynx normal Neck Exam: normal inspection, non-tender, supple, full range of motion Respiratory Exam: normal breath sounds, lungs clear Cardiovascular Exam: normal heart sounds, tachycardia Gastrointestinal/Abdomen Exam: soft, No normal bowel sounds, No tenderness Back Exam: normal inspection Extremity Exam: normal inspection, normal range of motion Neurologic Exam: alert, oriented x 3, cooperative Skin Exam: normal color, warm SpO2 Interpretation: normal SpO2: 96 O2 Delivery: Room Air Ordered Tests: Active Orders 24 hr Category Date Time Status IV Insertion STAT Care 04/27/20 14:57 Active NG to Suction (Insertion) ROUTINE Care 04/27/20 18:09 Active NPO (ED) STAT Care 04/27/20 14:57 Active ABDOMEN AND PELVIS W CONTRAST [CT] Stat Exams 04/27/20 14:57 Taken NG TUBE PLACEMENT (RAD) Stat Exams 04/27/20 18:09 Ordered AMYLASE Stat Lab 04/27/20 15:15 Completed CBC W DIFF Stat Lab 04/27/20 15:15 Completed CMP Stat Lab 04/27/20 15:15 Completed LIPASE Stat Lab 04/27/20 15:15 Completed Manual Differential NC Stat Lab 04/27/20 15:15 Completed Medication Summary Generic Name Dose Route Start Last Admin Trade Name Eric PRN Reason Stop Dose Admin Sodium Chloride 1,000 mls @ 125 mls/hr 04/27/20 18:15 04/27/20 18:11 Sodium Chloride 0.9% 1000 Ml IV 05/27/20 18:14 125 mls/hr .Q8H YANA Administration Discontinued Medications Generic Name Dose Route Start Last Admin Trade Name Eric PRN Reason Stop Dose Admin Sodium Chloride 1,000 mls @ 999 mls/hr 04/27/20 14:57 04/27/20 16:51 Sodium Chloride 0.9% 1000 Ml IV 04/27/20 15:57 Infused .Q1H1M STA Infusion Sodium Chloride Confirm 04/27/20 15:04 Sodium Chloride 0.9% 1000 Ml Administered 04/27/20 15:05 Dose 1,000 mls @ ud .ROUTE .STK-MED ONE Morphine Sulfate 4 mg 04/27/20 16:35 04/27/20 16:38 Morphine Sulfate 4 Mg Inj IV 04/27/20 16:36 4 mg STAT ONE Administration Morphine Sulfate Confirm 04/27/20 16:38 Morphine Sulfate 4 Mg Inj Administered 04/27/20 16:39 Dose 4 mg .ROUTE .STK-MED ONE Ondansetron HCl 4 mg 04/27/20 14:57 04/27/20 15:06 Zofran 4 Mg/2 Ml Vial IV 04/27/20 14:58 4 mg STAT ONE Administration Ondansetron HCl Confirm 04/27/20 15:04 Zofran 4 Mg/2 Ml Vial Administered 04/27/20 15:05 Dose 4 mg .ROUTE .STK-MED ONE Promethazine HCl 25 mg 04/27/20 15:41 04/27/20 15:48 Phenergan 25 Mg Inj IM 04/27/20 15:42 25 mg STAT ONE Administration Promethazine HCl Confirm 04/27/20 15:46 Phenergan 25 Mg Inj Administered 04/27/20 15:47 Dose 25 mg .ROUTE .STK-MED ONE Lab/Rad Data: Laboratory Result Diagrams 04/27/20 15:15 04/27/20 15:15 Laboratory Results 04/27/20 04/27/20 Range/Units 15:15 15:15 WBC 17.3 H (4.0-10.5) K/mm3 RBC 3.60 L (4.1-5.4) M/mm3 Hgb 9.4 L (12.0-16.0) gm/dl Hct 31.8 L (35-47) % MCV 88.3 (78-100) fl MCH 26.1 (26-32) pg MCHC 29.6 L (32-36) g/dl RDW 18.8 H (11.5-14.0) % Plt Count 880 H (150-450) K/mm3 MPV 9.2 (7.5-11.0) fl Segmented Neutrophils 93 H (36.0-66.0) % Lymphocytes (Manual) 3 L (24-44) % Monocytes (Manual) 3 (0.0-12.0) % Basophils (Manual) 1 (0.0-1.0) % Hypersegmented Polys 1+ Hypochromia 1+ Platelet Estimate INCREASED (NORMAL) RBC Morphology ABNORMAL Polychromasia 1+ Poikilocytosis 1+ Anisocytosis 1+ Sodium 138 (137-145) mmol/L Potassium 4.9 (3.5-5.1) mmol/L Chloride 112 H (98-107) mmol/L Carbon Dioxide 18 L (22-30) mmol/L Anion Gap 12.6 (5-15) MEQ/L BUN 20 H (7-17) mg/dL Creatinine 0.69 (0.52-1.04) mg/dL Estimated GFR > 60.0 ML/MIN Glucose 124 H (74-106) mg/dL Calcium 10.0 (8.4-10.2) mg/dL Total Bilirubin 0.30 (0.2-1.3) mg/dL AST 18 (14-36) U/L ALT 15 (0-35) U/L Alkaline Phosphatase 118 (38-126) U/L Serum Total Protein 7.0 (6.3-8.2) g/dL Albumin 3.7 (3.5-5.0) g/dL Amylase 86 (30-110) U/L Lipase 264 (23-300) U/L - Progress Progress: improved, re-examined Progress Note: 04/27/20 18:17 64 years old is evaluated for multiple episodes of vomiting in the light of recent abdominal surgery done at [facility]. She is given IV fluids and symptomatic treatment for nausea/vomiting. On reevaluation patient is feeling better. She has a white count of 17, grossly unremarkable chemistries. I have obtained CT abdomen pelvis which showed gastric and small bowel distention suggesting early partial small bowel obstruction. Will place NG tube. I have discussed with Dr. Tanner recommended transfer to facility where the original surgery was performed. I have discussed with Dr. Lemon at , agreed with NG tube, n.p.o., IV fluids and transfer. Plan discussed with patient and family who understand and agree with it. Discussed with .: Mike, Other ( ) Counseled pt/family regarding: lab results, diagnosis, rad results - Departure Departure Disposition: Transfer Clinical Impression: Small bowel obstruction, partial Condition: Stable Critical Care Time: No Referrals: NELL TENORIO MD [Primary Care Provider] -
[2020-04-27 15:31] LABS: ALBUMIN 3.7 g/dL (3.5-5.0); ALKALINE PHOSPHATASE 118 U/L (38-126); AMYLASE 86 U/L (30-110); ANION GAP 12.6 MEQ/L (5-15); BLOOD UREA NITROGEN 20 mg/dL (7-17); CHLORIDE 112 mmol/L (98-107); Carbon Dioxide 18 mmol/L (22-30); Creatinine 1 0.69 mg/dL (0.52-1.04); Glucose 124 mg/dL (74-106); LIPASE 264 U/L (23-300); Potassium 4.9 mmol/L (3.5-5.1); SGOT/AST 18 U/L (14-36); SGPT/ALT 15 U/L (0-35); SODIUM 138 mmol/L (137-145)
[2020-04-27] MEDS ORDERED: Phenergan 25 MG INJ IM ONE (15:41)
[2020-04-27] MEDS ORDERED: Phenergan 25 MG INJ ONE (15:46)
[2020-04-27 16:19] LABS: Basophil 1 % (0.0-1.0); Lymphocytes 3 % (24-44); Monocyte 3 % (0.0-12.0); Neutrophils 93 % (36.0-66.0); Total Cells Counted 100
[2020-04-27 16:20] LABS: ANISOCYTOSIS 1+; Hypersegmented Polys 1+; Hypochromia 1+; Platelet Estimate INCREASED (NORMAL); Poikilocytosis 1+; Polychromasia 1+
[2020-04-27] MEDS ORDERED: MORPHINE SULFATE 4 MG INJ IV ONE (16:35)
[2020-04-27] MEDS ORDERED: MORPHINE SULFATE 4 MG INJ ONE (16:38)
[2020-04-27] MEDS ORDERED: Sodium Chloride 0.9% 1000 ML 1,000 ML IV SCH (18:15)
--- NOTE | 2020-04-27 22:20 | XRAY ---
Indication: Nausea and vomiting. Patient reports surgery 3 weeks ago for small intestine stricture. Multiple contiguous axial images obtained through the abdomen and pelvis using 80 cc Isovue 370 contrast. Comparison: March 16, 2020 Lung bases demonstrates minimal fibrosis/scarring without infiltrate or effusion. Heart is not enlarged. Again distal esophagus is mildly fluid distended. Stomach remains abnormally fluid/food distended more than before. Duodenum/proximal small bowel loops demonstrates new abnormal fluid distention up to 6 cm in diameter. More distal jejunal/ileal bowel loops and colon are normal in caliber. Findings favor proximal small bowel obstruction. No free fluid/air. Stable descending and sigmoid diverticulosis. Gallbladder is now moderately distended without gallstones or biliary distention. Remaining liver, pancreas, spleen, adrenal glands, kidneys, ureters, bladder, uterus, and aorta appear unremarkable. Osseous structures intact again with moderate degenerative changes throughout the thoracolumbar spine and mild double curvature scoliosis. Anterior abdominal wall just superior to the umbilicus demonstrates new 2.3 x 4.5 cm subcutaneous fluid collection of uncertain etiology. Impression: 1. Proximal small bowel obstruction as detailed. 2. New anterior abdominal wall subcutaneous fluid collection of uncertain etiology. 3. Stable colonic diverticulosis and chronic bony findings. Comment: Preliminary interpretation was made by [facility]. No critical discrepancy.
--- NOTE | 2020-04-27 22:30 | XRAY ---
Indication: Tube placement. Comparison: February 19, 2020. Portable chest demonstrates new NG tube tip midline upper abdomen, probably proximal stomach. Remaining heart and lungs unremarkable with minimal left base fibrosis/scarring. Bony thorax is intact.
[2020-04-28 01:16] VITALS: BP 130/97; PULSE 98; O2SAT 98
== END 2020-04-28 01:35 | disposition short-term general hospital (02) ==
LOC: ED 13:52
DX: K56.600 Partial intestinal obstruction, unspecified as to cause (principal); I10 Essential (primary) hypertension; Z79.899 Other long term (current) drug therapy
CPT/HCPCS: 36000; 36415; 71045; 74177; 80053; 82150; 83690; 85025; 96360; 96361; 96372; 96374; 96375; 99285; J2270; J2405; J2550

== ENCOUNTER 2020-06-04 12:53 | Emergency (ER) | payer MEDICARE, OTHER ==
[2020-06-04] MEDS ORDERED: Zofran 4 MG/2 ML VIAL IV ONE (13:24)
[2020-06-04] MEDS ORDERED: MORPHINE SULFATE 2 MG INJ IV ONE (13:24)
[2020-06-04] MEDS ORDERED: Sodium Chloride 0.9% 1000 ML 1,000 ML IV SCH (13:30)
[2020-06-04] MEDS ORDERED: Zofran 4 MG/2 ML VIAL ONE (13:37)
[2020-06-04] MEDS ORDERED: MORPHINE SULFATE 2 MG INJ ONE (13:38)
--- NOTE | 2020-06-04 13:51 | ERPHSYRPT ---
- History of Present Illness Time Seen by Provider: 06/04/20 13:00 Historian: patient Exam Limitations: no limitations Patient Subjective Stated Complaint: Pt states "I have had several bowel obstructions in the past and my last surgery was on April 30. I have not had a bowel movement in a couple weeks and my belly hurts." Triage Nursing Assessment: Pt presented alert and oriented X 3, skin pwd Pt ambulates with an upright steady gait, able to speak in clear full sentences pt in no apparent respiratory distress. Physician History: Patient is a 64-year-old female who presents to our ED as a referral from her primary care doctor. Patient has a history of multiple abdominal surgeries including bowel resection. Patient's last surgery was April 30. Patient is here today with complaints of abdominal pain and vomiting. Emesis is nonbloody nonbilious patient states she has not had a bowel movement in 2 weeks. Patient's abdominal pain started last night. Pain has been constant. Patient abdominal pain is diffuse. Pain is moderate in intensity. No specific worsening improving factors. No associated fever. No trauma. No dizziness numbness or weakness. Patient states aside from her abdominal history she is otherwise healthy. Patient voices no other complaints at this time. Timing/Duration: yesterday Activities at Onset: none Quality: aching Abdominal Pain Onset Location: generalized abdomen Pain Radiation: no radiation Severity of Pain-Max: moderate Severity of Pain-Current: mild Modifying Factors: Improves With: nothing Associated Symptoms: nausea, vomiting, No diarrhea, No fever/chills, No rash, No shortness of breath, No syncope Allergies/Adverse Reactions: No Known Drug Allergies Allergy (Verified 04/27/20 14:17) Home Medications: Ferrous Sulfate 325 mg [Feosol 325 mg] 325 mg PO BID 03/09/18 [History] Montelukast Sodium 10 mg [Singulair 10 MG] 10 mg PO HS 03/09/18 [History] Fluticasone Propionate [Flonase NASAL] 0 gm NS DAILY 03/16/20 [History] Docusate Sodium [Colace] 100 mg PO DAILY 06/04/20 [History] Tramadol HCl 50 mg [Ultram 50 mg] 100 mg PO HS 06/04/20 [History] Hx Tetanus, Diphtheria Vaccination/Date Given: Yes Hx Influenza Vaccination/Date Given: No Hx Pneumococcal Vaccination/Date Given: No Immunizations Up to Date: Yes Travel Risk - International Travel Have you traveled outside of the country in past 3 weeks: No - Coronavirus Screening Are you exhibiting any of the following symptoms?: No Close contact with a COVID-19 positive Pt in past 14-21 Days: No - Review of Systems Constitutional: No Symptoms, No Fever, No Chills Eyes: No Symptoms Ears, Nose, & Throat: No Symptoms Respiratory: No Symptoms, No Cough, No Dyspnea Cardiac: No Symptoms, No Chest Pain, No Edema, No Syncope Abdominal/Gastrointestinal: No Symptoms, No Abdominal Pain, No Nausea, No Vomiti ng, No Diarrhea Genitourinary Symptoms: No Symptoms, No Dysuria Musculoskeletal: No Symptoms, No Back Pain, No Neck Pain Skin: No Symptoms, No Rash Neurological: No Symptoms, No Dizziness, No Focal Weakness, No Sensory Changes Psychological: No Symptoms Endocrine: No Symptoms Hematologic/Lymphatic: No Symptoms Immunological/Allergic: No Symptoms All Other Systems: Reviewed and Negative - Past Medical History Pertinent Past Medical History: Yes Neurological History: No Pertinent History ENT History: No Pertinent History Cardiac History: Hypertension Respiratory History: Asthma Endocrine Medical History: No Pertinent History Musculoskeletal History: Arthritis GI Medical History: GERD, Other History: No Pertinent History Psycho-Social History: No Pertinent History Female Reproductive Disorders: No Pertinent History Other Medical History: anemia. hiatal hernia. ulcer. stricture - Past Surgical History Past Surgical History: Yes Neuro Surgical History: No Pertinent History Cardiac: No Pertinent History Respiratory: No Pertinent History Gastrointestinal: No Pertinent History Genitourinary: No Pertinent History Musculoskeletal: No Pertinent History Female Surgical History: Tubal Ligation Other Surgical History: gastric outlet obstruction - Social History Smoking Status: Never smoker Exposure to second hand smoke: No Drug Use: none Patient Lives Alone: No - Female History Hx Now: No - Nursing Vital Signs Nursing Vital Signs: Initial Vital Signs Temperature 97.5 F 06/04/20 12:57 Pulse Rate 86 06/04/20 12:57 Respiratory Rate 22 06/04/20 12:57 Blood Pressure 114/85 06/04/20 12:57 O2 Sat by Pulse Oximetry 98 06/04/20 12:57 Pain Scale Pain Intensity 2 - Physical Exam General Appearance: no apparent distress, alert Eye Exam: PERRL/EOMI, eyes nml inspection Ears, Nose, Throat Exam: normal ENT inspection, pharynx normal, moist mucous membranes Neck Exam: normal inspection, non-tender, supple, full range of motion Respiratory Exam: normal breath sounds, lungs clear, No respiratory distress Cardiovascular Exam: regular rate/rhythm, normal heart sounds Gastrointestinal/Abdomen Exam: soft, No tenderness, No mass Back Exam: normal inspection, normal range of motion, No CVA tenderness, No vertebral tenderness Extremity Exam: normal inspection, normal range of motion, pelvis stable Neurologic Exam: alert, oriented x 3, cooperative, normal mood/affect, nml cerebellar function, sensation nml, No motor deficits Skin Exam: normal color, warm, dry SpO2 Interpretation: normal SpO2: 98 O2 Delivery: Room Air Procedures - Central Line Timeout: Performed (Patient requested to discontinue the procedure as she was feeling nauseous and dizzy.) Central Line Lumen: single Central Line Procedure: chlorahexadine prep Central Line Postion: femoral (R) Anesthesia: 1% Lidocaine cc's of anesthesia: 4 Ultrasound Guided Placement: Yes Complications: other (Patient was feeling nauseous and dizzy and requested discontinue the procedure. Central line was not placed. Attempt was made.) - Course Nursing assessment & vital signs reviewed: Yes EKG Interpreted by Me: RATE (90), Sinus Rhythm, NORMAL AXIS, NORMAL INTERVALS - CT Exams Abdomen/Pelvis CT Interpretation: Tele-radiologist Report (CT features favoring recurrent distal small bowel obstruction. Stable distended gallbladder, colonic diverticulosis and chronic bony findings.) Ordered Tests: Active Orders 24 hr Category Date Time Status EKG-ER Only STAT Care 06/04/20 13:53 Completed Estrella [Catheter-Dickens Estrella] STAT Care 06/04/20 17:14 Completed IV Insertion STAT Care 06/04/20 13:24 Completed NG to Suction (Insertion) ROUTINE Care 06/04/20 17:13 Completed NPO (ED) STAT Care 06/04/20 13:53 Completed ABDOMEN AND PELVIS W/0 CONTRAS [CT] Stat Exams 06/04/20 13:25 Completed CBC W DIFF Stat Lab 06/04/20 14:50 Completed CMP Stat Lab 06/04/20 15:00 Completed LIPASE Stat Lab 06/04/20 15:00 Completed Manual Differential NC Stat Lab 06/04/20 14:50 Completed TROPONIN Q3H Lab 06/04/20 15:00 Completed UA W/RFX UR CULTURE Stat Lab 06/04/20 17:56 Completed Medication Summary Discontinued Medications Generic Name Dose Route Start Last Admin Trade Name Eric PRN Reason Stop Dose Admin Calcium Gluconate 1,000 mg 06/04/20 15:58 06/04/20 17:00 Calcium Gluconate 10% 1000 Mg IV 06/04/20 15:59 1,000 mg STAT ONE Administration Calcium Gluconate Confirm 06/04/20 17:00 Calcium Gluconate 10% 1000 Mg Administered 06/04/20 17:01 Dose 1,000 mg IV .STK-MED ONE Dextrose 100 ml 06/04/20 17:21 06/04/20 18:01 D50w 50ml Vial IV 06/04/20 17:22 100 ml ONCE STA Administration Dextrose Confirm 06/04/20 17:59 D50w 50 Ml Abboject Administered 06/04/20 18:00 Dose 100 ml IV .STK-MED ONE Sodium Chloride 1,000 mls @ 100 mls/hr 06/04/20 13:30 06/04/20 13:43 Sodium Chloride 0.9% 1000 Ml IV 07/04/20 13:29 100 mls/hr .Q10H YANA Administration Sodium Bicarbonate 75 meq/ 575 mls @ 75 mls/hr 06/04/20 16:00 06/04/20 17:11 Dextrose/Sodium Chloride IV 07/04/20 15:59 75 mls/hr .Q7H40M YANA 75 mls/hr Administration Insulin Human Regular 8 unit 06/04/20 17:22 06/04/20 18:00 Humulin R SQ 06/04/20 17:23 8 unit ONCE STA Administration Insulin Human Regular Confirm 06/04/20 17:59 Humulin R Administered 06/04/20 18:00 Dose 8 unit .ROUTE .STK-MED ONE Morphine Sulfate 2 mg 06/04/20 13:24 06/04/20 13:43 Morphine Sulfate 2 Mg Inj IV 06/04/20 13:25 Not Given STAT ONE Morphine Sulfate Confirm 06/04/20 13:38 Morphine Sulfate 2 Mg Inj Administered 06/04/20 13:39 Dose 2 mg .ROUTE .STK-MED ONE Morphine Sulfate 2 mg 06/04/20 14:34 06/04/20 14:36 Morphine Sulfate 2 Mg Inj IM 06/04/20 14:35 2 mg STAT ONE Administration Ondansetron HCl 4 mg 06/04/20 13:24 06/04/20 13:42 Zofran 4 Mg/2 Ml Vial IV 06/04/20 13:25 4 mg STAT ONE Administration Ondansetron HCl Confirm 06/04/20 13:37 Zofran 4 Mg/2 Ml Vial Administered 06/04/20 13:38 Dose 4 mg .ROUTE .STK-MED ONE Sodium Polystyrene Sulfonate 30 g 06/04/20 16:02 06/04/20 17:02 Kayexylate 15 Gm/60 Ml PO 06/04/20 16:03 Not Given STAT ONE Lab/Rad Data: Laboratory Result Diagrams 06/04/20 14:50 06/04/20 15:00 Laboratory Results 06/04/20 06/04/20 06/04/20 Range/Units 17:56 15:00 15:00 WBC (4.0-10.5) K/mm3 RBC (4.1-5.4) M/mm3 Hgb (12.0-16.0) gm/dl Hct (35-47) % MCV (78-100) fl MCH (26-32) pg MCHC (32-36) g/dl RDW (11.5-14.0) % Plt Count (150-450) K/mm3 MPV (7.5-11.0) fl Sodium 123 L (137-145) mmol/L Potassium 7.0 H* (3.5-5.1) mmol/L Chloride 85 L (98-107) mmol/L Carbon Dioxide 12 L* (22-30) mmol/L Anion Gap 32.8 H (5-15) MEQ/L BUN 105 H (7-17) mg/dL Creatinine 4.00 H (0.52-1.04) mg/dL Estimated GFR 12.0 ML/MIN Glucose 101 (74-106) mg/dL Calcium 10.4 H (8.4-10.2) mg/dL Total Bilirubin 0.60 (0.2-1.3) mg/dL AST 31 (14-36) U/L ALT 52 H (0-35) U/L Alkaline Phosphatase 281 H (38-126) U/L Troponin I 0.033 (0.000-0.034) ng/mL Serum Total Protein 8.6 H (6.3-8.2) g/dL Albumin 4.9 (3.5-5.0) g/dL Lipase 71 (23-300) U/L Urine Color IRINA (YELLOW) Urine Appearance CLOUDY (CLEAR) Urine pH 5.0 (5-6) Ur Specific [place] 1.023 (1.005-1.025) Urine Protein NEGATIVE (Negative) Urine Ketones NEGATIVE (NEGATIVE) Urine Blood NEGATIVE (0-5) Indra/ul Urine Nitrite NEGATIVE (NEGATIVE) Urine Bilirubin SMALL (NEGATIVE) Urine Urobilinogen NEGATIVE (0-1) mg/dL Ur Leukocyte Esterase TRACE (NEGATIVE) Urine WBC (Auto) 3-5 (0-5) /HPF Urine RBC (Auto) 0-2 (0-2) /HPF U Hyaline Cast (Auto) 0-2 (0-2) /LPF U Epithel Cells (Auto) RARE (FEW) /HPF Urine Bacteria (Auto) NONE (NEGATIVE) /HPF Urine Mucus (Auto) SLIGHT (NEGATIVE) /HPF Urine Culture Reflexed NO (NO) Urine Glucose NEGATIVE (NEGATIVE) mg/dL 06/04/20 Range/Units 14:50 WBC 11.5 H (4.0-10.5) K/mm3 RBC 4.66 (4.1-5.4) M/mm3 Hgb 12.3 (12.0-16.0) gm/dl Hct 38.0 (35-47) % MCV 81.5 (78-100) fl MCH 26.4 (26-32) pg MCHC 32.4 (32-36) g/dl RDW 19.0 H (11.5-14.0) % Plt Count 854 H (150-450) K/mm3 MPV 11.5 H (7.5-11.0) fl Sodium (137-145) mmol/L Potassium (3.5-5.1) mmol/L Chloride (98-107) mmol/L Carbon Dioxide (22-30) mmol/L Anion Gap (5-15) MEQ/L BUN (7-17) mg/dL Creatinine (0.52-1.04) mg/dL Estimated GFR ML/MIN Glucose (74-106) mg/dL Calcium (8.4-10.2) mg/dL Total Bilirubin (0.2-1.3) mg/dL AST (14-36) U/L ALT (0-35) U/L Alkaline Phosphatase (38-126) U/L Troponin I (0.000-0.034) ng/mL Serum Total Protein (6.3-8.2) g/dL Albumin (3.5-5.0) g/dL Lipase (23-300) U/L Urine Color (YELLOW) Urine Appearance (CLEAR) Urine pH (5-6) Ur Specific [place] (1.005-1.025) Urine Protein (Negative) Urine Ketones (NEGATIVE) Urine Blood (0-5) Indra/ul Urine Nitrite (NEGATIVE) Urine Bilirubin (NEGATIVE) Urine Urobilinogen (0-1) mg/dL Ur Leukocyte Esterase (NEGATIVE) Urine WBC (Auto) (0-5) /HPF Urine RBC (Auto) (0-2) /HPF U Hyaline Cast (Auto) (0-2) /LPF U Epithel Cells (Auto) (FEW) /HPF Urine Bacteria (Auto) (NEGATIVE) /HPF Urine Mucus (Auto) (NEGATIVE) /HPF Urine Culture Reflexed (NO) Urine Glucose (NEGATIVE) mg/dL - Progress Progress: improved Progress Note: 06/04/20 17:29 Patient reassessed. She remained stable. Patient has critically high hyperkalemia. Patient may require dialysis. Hyperkalemia likely secondary to acute renal injury from dehydration/nausea vomiting precipitated by small bowel obstruction. In addition patient has been taking supplemental potassium as per her primary care physician. In light of our critical findings patient will require transfer. Case discussed with Dr. Lemon our patient's general surgeon who accepts transfer to [facility]. After further assessment it was determined that transferring to [facility] would delay treatment of the more pressing issue of hyperkalemia. The decision was made to transfer patient to [facility] for treatment of the hyperkalemia. Patient does have an NG tube in place to address the small bowel obstruction. Decision was a shared decision-making process between patient and physician. They prefer transfer to [facility] to address the more pressing issue of the hyperkalemia. Dr. Rodriguez updated. We updated [facility] of our change in plans. 06/04/20 19:32 06/04/20 19:34 06/04/20 19:35 Dr. Moon ER physician at [facility] accepted transfer ER to ER. Discussed with : Kaila (Dr. Rodriguez updated on the findings. Dr. Rodriguez agrees with the need for transfer to higher level of care.) Counseled pt/family regarding: lab results, diagnosis, rad results - Departure Departure Disposition: Transfer Clinical Impression: SBO (small bowel obstruction), Dehydration, Acute renal injury, Hyperkalemia, High anion gap metabolic acidosis, Thrombocytosis Condition: Stable Critical Care Time: Yes Critical Care Time(excluding separately billable procedures): Critical 105-134 mins Referrals: NELL RODRIGUEZ MD [Primary Care Provider] -
[2020-06-04] MEDS ORDERED: MORPHINE SULFATE 2 MG INJ IM ONE (14:34)
[2020-06-04 15:21] LABS: Hemoglobin 12.3 gm/dl (12.0-16.0); Mean Cell Volume 81.5 fl (78-100); Mean Corpuscular Hemoglobin 26.4 pg (26-32); Mean Corpuscular Hgb Concent. 32.4 g/dl (32-36); Mean Platelet Volume 11.5 fl (7.5-11.0); Platelet Count 854 K/mm3 (150-450); Red Blood Count 4.66 M/mm3 (4.1-5.4); White Blood Count 11.5 K/mm3 (4.0-10.5)
[2020-06-04 15:26] LABS: ALBUMIN 4.9 g/dL (3.5-5.0); ANION GAP 32.8 MEQ/L (5-15); BILIRUBIN,TOTAL 0.6 mg/dL (0.2-1.3); Calcium 10.4 mg/dL (8.4-10.2); Total Protein 8.6 g/dL (6.3-8.2)
[2020-06-04] MEDS ORDERED: Calcium Gluconate 10% 1000 MG IV ONE ×2 (15:58→17:00)
[2020-06-04] MEDS ORDERED: Sodium Bicarbonate 50 MEQ/50 ML VIAL*** 75 MEQ in Dextrose 5%-1/2NS IV Soln. 500 ML 500 ML IV SCH (16:00)
[2020-06-04] MEDS ORDERED: Kayexylate 15 GM/60 ML PO ONE (16:02)
--- NOTE | 2020-06-04 16:27 | XRAY ---
Indication: Abdomen pain, nausea, constipation, and loss of appetite. Multiple contiguous axial images obtained through the abdomen and pelvis without contrast as ordered. Comparison: April 27, 2020. Lung bases again demonstrates bibasilar atelectasis/scarring. No infiltrate or effusion. Heart is not enlarged. Stomach is again markedly fluid distended. Duodenal and jejunal bowel loops are also again abnormally fluid distended up to 6.2 cm. The ileal bowel loops and colon appear decompressed. Findings again consistent with distal small bowel obstruction. No free fluid/air. Gallbladder remains distended without gallstones or biliary distention. Stable descending/sigmoid diverticulosis. Remaining liver, pancreas, spleen, adrenal glands, kidneys, ureters, bladder, and aorta appear unremarkable for noncontrast exam. Osseous structures intact again with degenerative changes throughout the thoracolumbar spine and mild upper curvature scoliosis. Impression: 1. CT features favoring recurrent distal small bowel obstruction. 2. Stable distended gallbladder, colonic diverticulosis, and chronic bony findings.
[2020-06-04] MEDS ORDERED: D50W 50ML Vial IV STA (17:21)
[2020-06-04] MEDS ORDERED: HUMULIN R SQ STA (17:22)
[2020-06-04 17:24] VITALS: O2SAT 98
[2020-06-04] MEDS ORDERED: D50W 50 ml Abboject IV ONE (17:59)
[2020-06-04] MEDS ORDERED: HUMULIN R ONE (17:59)
[2020-06-04 18:19] VITALS: BP 99/75; PULSE 96
[2020-06-04 18:42] LABS: Appearance CLOUDY (CLEAR); Bilirubin SMALL (NEGATIVE); Blood NEGATIVE Ery/ul (0-5); Epithelial Cells RARE /HPF (FEW); Glucose NEGATIVE (NEGATIVE); Hyaline Casts 0-2 /LPF (0-2); Ketones NEGATIVE (NEGATIVE); Leukocyte Esterase TRACE (NEGATIVE); Mucus SLIGHT /HPF (NEGATIVE); Nitrite NEGATIVE (NEGATIVE); Protein,Urine Dip NEGATIVE (Negative); RBC 0-2 /HPF (0-2); Specific Gravity 1.023 (1.005-1.025); Urobilinogen NEGATIVE mg/dL (0-1)
[2020-06-04 21:23] LABS: BAND 7 % (0.0-2.0); Lymphocytes 17 % (24-44); Monocyte 12 % (0.0-12.0); Neutrophils 64 % (36.0-66.0); Total Cells Counted 100
[2020-06-04 21:25] LABS: ANISOCYTOSIS 1+; Platelet Estimate INCREASED (NORMAL); Poikilocytosis 1+
== END 2020-06-04 18:50 | disposition short-term general hospital (02) ==
LOC: ED 12:53
DX: E86.0 Dehydration (principal); N17.9 Acute kidney failure, unspecified; E87.5 Hyperkalemia; E87.2 Acidosis; D47.3 Essential (hemorrhagic) thrombocythemia
CPT/HCPCS: 36000; 36415; 51702; 74176; 80053; 81001; 83690; 84484; 85025; 93005; 96365; 96366; 96372; 96374; 96375; 99285; 99291; 99292; J0610; J1815; J2270; J2405

== ENCOUNTER 2020-06-13 06:01 | Emergency (ER) | payer MEDICARE, OTHER ==
--- NOTE | 2020-06-13 06:10 | ERPHSYRPT ---
- History of Present Illness Source: patient Exam Limitations: no limitations Timing/Duration: day(s) (2) Severity: moderate Modifying Factors: Improves With: movement Associated Symptoms: denies symptoms Hx Tetanus, Diphtheria Vaccination/Date Given: Yes Hx Influenza Vaccination/Date Given: No Hx Pneumococcal Vaccination/Date Given: No <COREY BERNARDO - Last Filed: 06/13/20 06:40> <DAVID BAIG - Last Filed: 06/13/20 09:50> - History of Present Illness Time Seen by Provider: 06/13/20 06:09 Physician History: This is a 65-year-old female who presents with a 2-day history of left lower extremity swelling. In March 2020 patient underwent a partial gastric resection during a exploratory laparotomy to help relieve an intra-abdominal bowel obstr uction. Patient was taken back to the operating room 6 weeks ago and underwent a left colon partial colectomy also for bowel obstruction and adhesiolysis. Patient states that she was on steve-operative anticoagulation therapy. She was not on any anticoagulation therapy at home. Patient denies trauma to her left lower extremity. Patient states that she is able to walk but there is pain in her left leg. Patient denies shortness of breath, she denies chest pain, she denies abdominal pain. She has had no fever. She has had no nausea vomiting or diarrhea (COREY BERNARDO) Allergies/Adverse Reactions: No Known Drug Allergies Allergy (Verified 06/13/20 06:09) Home Medications: Ferrous Sulfate 325 mg [Feosol 325 mg] 325 mg PO BID 03/09/18 [History] Montelukast Sodium 10 mg [Singulair 10 MG] 10 mg PO HS 03/09/18 [History] Fluticasone Propionate [Flonase NASAL] 0 gm NS DAILY 03/16/20 [History] Docusate Sodium [Colace] 100 mg PO DAILY 06/04/20 [History] Travel Risk - International Travel Have you traveled outside of the country in past 3 weeks: No - Coronavirus Screening Are you exhibiting any of the following symptoms?: No Close contact with a COVID-19 positive Pt in past 14-21 Days: No <COREY BERNARDO - Last Filed: 06/13/20 06:40> - Review of Systems Constitutional: No Symptoms Eyes: No Symptoms Ears, Nose, & Throat: No Symptoms Respiratory: No Symptoms Cardiac: No Symptoms Abdominal/Gastrointestinal: No Symptoms Genitourinary Symptoms: No Symptoms Musculoskeletal: Other (Lower leg swelling and tenderness) Skin: No Symptoms Neurological: No Symptoms Psychological: No Symptoms Endocrine: No Symptoms Hematologic/Lymphatic: No Symptoms Immunological/Allergic: No Symptoms All Other Systems: Reviewed and Negative <COREY BERNARDO - Last Filed: 06/13/20 06:40> - Past Medical History Pertinent Past Medical History: Yes Neurological History: No Pertinent History ENT History: No Pertinent History Cardiac History: Hypertension Respiratory History: Asthma Endocrine Medical History: No Pertinent History Musculoskeletal History: Arthritis GI Medical History: GERD, Other History: No Pertinent History Psycho-Social History: No Pertinent History Female Reproductive Disorders: No Pertinent History Other Medical History: anemia. hiatal hernia. ulcer. stricture - Past Surgical History Past Surgical History: Yes Neuro Surgical History: No Pertinent History Cardiac: No Pertinent History Respiratory: No Pertinent History Gastrointestinal: No Pertinent History Genitourinary: No Pertinent History Musculoskeletal: No Pertinent History Female Surgical History: Tubal Ligation Other Surgical History: gastric outlet obstruction - Social History Smoking Status: Never smoker Exposure to second hand smoke: No Drug Use: none Patient Lives Alone: No <COREY BERNARDO - Last Filed: 06/13/20 06:40> - Physical Exam General Appearance: no apparent distress, alert, anxiety Eye Exam: PERRL/EOMI, eyes nml inspection Ears, Nose, Throat Exam: normal ENT inspection, moist mucous membranes Neck Exam: normal inspection, non-tender, supple, full range of motion Respiratory Exam: normal breath sounds, lungs clear, airway intact, No chest tenderness, No respiratory distress Cardiovascular Exam: regular rate/rhythm, normal heart sounds, normal peripheral pulses Gastrointestinal/Abdomen Exam: soft, normal bowel sounds, No tenderness Pelvic Exam: not done Rectal Exam: not done Back Exam: normal inspection, normal range of motion, No CVA tenderness, No vertebral tenderness Extremity Exam: normal range of motion, pelvis stable, swelling (The entire left lower extremity with tenderness. The left lower leg is discolored compared to the right lower extremity. The left lower leg is cooler than the right lower extremity. I am unable to palpate or Doppler pedal pulses on the left.), tenderness (Left lower extremity) Neurologic Exam: alert, oriented x 3, cooperative, senior director of strategy II-XII nml as tested, normal mood/affect, nml cerebellar function, nml station & gait, sensation nml Skin Exam: other (See above extremity section) Lymphatic Exam: No adenopathy SpO2 Interpretation: normal O2 Delivery: Room Air <COREY BERNARDO - Last Filed: 06/13/20 06:40> - Nursing Vital Signs Nursing Vital Signs: Initial Vital Signs Temperature 97.9 F 06/13/20 06:13 Pulse Rate 81 06/13/20 06:13 Respiratory Rate 16 06/13/20 06:13 Blood Pressure 146/97 06/13/20 06:13 O2 Sat by Pulse Oximetry 100 06/13/20 06:13 Pain Scale Pain Intensity 5 - Course Nursing assessment & vital signs reviewed: Yes - Radiology Ultrasound Exam Venous Lower Extremity Ultrasound: tele radiology report (Per bumper machine operator report patient has an extensive DVT that extends proximally into the thigh. Patient has biphasic dopplerable pulses at the involved extremity.) <DAVID BAIG - Last Filed: 06/13/20 09:50> Ordered Tests: Active Orders 24 hr Category Date Time Status IV Insertion STAT Care 06/13/20 06:37 Active ABDOMEN AND PELVIS W/0 CONTRAS [CT] Stat Exams 06/13/20 06:38 Completed ARTERIAL UNILAT/LTD LOWER EXT [US] Stat Exams 06/13/20 07:26 Completed VENOUS UNILAT/LIMITED EXTREMIT [US] Stat Exams 06/13/20 07:26 Completed BLOOD CULTURE Stat Lab 06/13/20 09:16 Ordered CBC W DIFF Stat Lab 06/13/20 06:20 Completed CK (IN-HOUSE) [CK-Creatinine Phosphokinase] Stat Lab 06/13/20 06:31 Completed CMP Stat Lab 06/13/20 06:20 Completed Lactic Acid Stat Lab 06/13/20 07:04 Completed Manual Differential NC Stat Lab 06/13/20 06:20 Completed PROTIME WITH INR Stat Lab 06/13/20 06:20 Completed PTT Stat Lab 06/13/20 08:15 Ordered Medication Summary Generic Name Dose Route Start Last Admin Trade Name Freq PRN Reason Stop Dose Admin Sodium Chloride 1,000 mls @ 999 mls/hr 06/13/20 09:15 06/13/20 09:20 Sodium Chloride 0.9% 1000 Ml IV 06/13/20 10:15 999 mls/hr .Q1H1M STA Administration Discontinued Medications Generic Name Dose Route Start Last Admin Trade Name Eric PRN Reason Stop Dose Admin Heparin Sodium (Beef Lung) Confirm 06/13/20 09:21 Heparin 5000 Units/0.5 Ml (High Risk Med) Administered 06/13/20 09:22 Dose 5,000 unit .ROUTE .STK-MED ONE Hydromorphone HCl 1 mg 06/13/20 06:50 06/13/20 06:55 Hydromorphone 1 Mg/Ml Ampule IV 06/13/20 06:51 1 mg STAT ONE Administration Hydromorphone HCl Confirm 06/13/20 06:53 Hydromorphone 1 Mg/Ml Ampule Administered 06/13/20 06:54 Dose 1 mg .ROUTE .STK-MED ONE Hydromorphone HCl 1 mg 06/13/20 08:23 06/13/20 08:31 Hydromorphone 1 Mg/Ml Ampule IV 06/13/20 08:24 1 mg STAT ONE Administration Hydromorphone HCl Confirm 06/13/20 08:26 Hydromorphone 1 Mg/Ml Ampule Administered 06/13/20 08:27 Dose 1 mg .ROUTE .STK-MED ONE Sodium Chloride Confirm 06/13/20 09:18 Sodium Chloride 0.9% 1000 Ml Administered 06/13/20 09:19 Dose 1,000 mls @ ud .ROUTE .STK-MED ONE Heparin Sodium/Dextrose Confirm 06/13/20 09:21 Heparin 25,000 Units/D5w 250ml Premix Administered 06/13/20 09:22 Dose 25,000 units in 250 mls @ ud IV .STK-MED ONE Ondansetron HCl 4 mg 06/13/20 06:37 06/13/20 06:47 Zofran 4 Mg/2 Ml Vial IV 06/13/20 06:38 4 mg STAT ONE Administration Ondansetron HCl Confirm 06/13/20 06:46 Zofran 4 Mg/2 Ml Vial Administered 06/13/20 06:47 Dose 4 mg .ROUTE .STK-MED ONE Lab/Rad Data: Laboratory Result Diagrams 06/13/20 06:20 06/13/20 06:20 Laboratory Results 06/13/20 06/13/20 06/13/20 Range/Units 07:04 06:31 06:20 WBC (4.0-10.5) K/mm3 RBC (4.1-5.4) M/mm3 Hgb (12.0-16.0) gm/dl Hct (35-47) % MCV (78-100) fl MCH (26-32) pg MCHC (32-36) g/dl RDW (11.5-14.0) % Plt Count (150-450) K/mm3 MPV (7.5-11.0) fl Segmented Neutrophils (36.0-66.0) % Lymphocytes (Manual) (24-44) % Monocytes (Manual) (0.0-12.0) % Toxic Granulation Platelet Estimate (NORMAL) RBC Morphology Anisocytosis PT 13.3 H (9.95-12.35) SECONDS INR 1.18 (0.8-3.0) Sodium (137-145) mmol/L Potassium (3.5-5.1) mmol/L Chloride (98-107) mmol/L Carbon Dioxide (22-30) mmol/L Anion Gap (5-15) MEQ/L BUN (7-17) mg/dL Creatinine (0.52-1.04) mg/dL Estimated GFR ML/MIN Glucose (74-106) mg/dL Lactic Acid 1.8 (0.4-2.0) Calcium (8.4-10.2) mg/dL Total Bilirubin (0.2-1.3) mg/dL AST (14-36) U/L ALT (0-35) U/L Alkaline Phosphatase (38-126) U/L Creatine Kinase < 20 L (30-135) U/L Serum Total Protein (6.3-8.2) g/dL Albumin (3.5-5.0) g/dL 06/13/20 06/13/20 Range/Units 06:20 06:20 WBC 23.9 H (4.0-10.5) K/mm3 RBC 4.32 (4.1-5.4) M/mm3 Hgb 11.4 L (12.0-16.0) gm/dl Hct 37.3 (35-47) % MCV 86.3 (78-100) fl MCH 26.4 (26-32) pg MCHC 30.6 L (32-36) g/dl RDW 18.9 H (11.5-14.0) % Plt Count 445 (150-450) K/mm3 MPV 10.8 (7.5-11.0) fl Segmented Neutrophils 90 H (36.0-66.0) % Lymphocytes (Manual) 8 L (24-44) % Monocytes (Manual) 2 (0.0-12.0) % Toxic Granulation 1+ Platelet Estimate NORMAL (NORMAL) RBC Morphology ABNORMAL Anisocytosis 1+ PT (9.95-12.35) SECONDS INR (0.8-3.0) Sodium 134 L (137-145) mmol/L Potassium 4.6 (3.5-5.1) mmol/L Chloride 107 (98-107) mmol/L Carbon Dioxide 16 L* (22-30) mmol/L Anion Gap 15.6 H (5-15) MEQ/L BUN 21 H (7-17) mg/dL Creatinine 0.75 (0.52-1.04) mg/dL Estimated GFR > 60.0 ML/MIN Glucose 124 H (74-106) mg/dL Lactic Acid (0.4-2.0) Calcium 9.3 (8.4-10.2) mg/dL Total Bilirubin 0.40 (0.2-1.3) mg/dL AST 23 (14-36) U/L ALT 16 (0-35) U/L Alkaline Phosphatase 190 H (38-126) U/L Creatine Kinase (30-135) U/L Serum Total Protein 6.6 (6.3-8.2) g/dL Albumin 3.4 L (3.5-5.0) g/dL <COREY BERNARDO - Last Filed: 06/13/20 06:40> - Progress Progress: improved Discussed with : Kaila Will see patient in: office Counseled pt/family regarding: lab results, diagnosis, rad results <DAVID BAIG - Last Filed: 06/13/20 09:50> - Progress Progress Note: 06/13/20 06:47 I am transferring care to Dr. Baig at the time of shift change. I reviewed the patient history and pending studies with him. He will make final disposition. (COREY BERNARDO) Patient endorsed to Dr. Baig at [address] Baig advised of pending ultrasound. Ultrasound reveals extensive left lower extremity DVT that spans from left leg to proximal thigh. There are biphasic dopplerable pulses at this involved left lower extremity. Case discussed with Dr. Rodriguez our patient's primary care physician. In light of the extent of the clot we will transfer patient to [facility] which is where she normally receives her care. Plan of care discussed with patient. Patient agrees to transfer to [facility] for further evaluation and treatment. [facility] advised transferring to [facility]. I personally spoke with Dr. Lemon transferring to [facility] for vascular surgery evaluation. Will be ED to ED. I spoke to Dr. Arias, ED physician who accepts transfer. 06/13/20 08:47 06/13/20 09:48 Blood cultures ordered in light of leukocytosis. Patient is afebrile. There is no source of infection. Cause of leukocytosis is unclear. Blood cultures ordered. However staff unable to obtain cultures due to difficult access. H eparin bolus and infusion ordered. Heparin administered prior to departure. Patient reassessed prior to departure. Physical exam unchanged. Pain well controlled after dose #2 of Dilaudid. Patient will be transferred to [facility] for further evaluation and treatment. 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
[2020-06-13] MEDS ORDERED: Zofran 4 MG/2 ML VIAL IV ONE (06:37)
[2020-06-13] MEDS ORDERED: Zofran 4 MG/2 ML VIAL ONE (06:46)
[2020-06-13] MEDS ORDERED: Hydromorphone 1 mg/ml Ampule IV ONE ×2 (06:50→08:23)
[2020-06-13] MEDS ORDERED: Hydromorphone 1 mg/ml Ampule ONE ×2 (06:53→08:26)
[2020-06-13 06:55] LABS: Hematocrit 37.3 % (35-47); Hemoglobin 11.4 gm/dl (12.0-16.0); Mean Cell Volume 86.3 fl (78-100); Mean Corpuscular Hemoglobin 26.4 pg (26-32); Mean Corpuscular Hgb Concent. 30.6 g/dl (32-36); Mean Platelet Volume 10.8 fl (7.5-11.0); Platelet Count 445 K/mm3 (150-450); Red Blood Count 4.32 M/mm3 (4.1-5.4); Red Cell Distribution Width 18.9 % (11.5-14.0); White Blood Count 23.9 K/mm3 (4.0-10.5)
[2020-06-13 07:03] LABS: INR 1.18 (0.8-3.0); PROTIME 13.3 SECONDS (9.95-12.35)
[2020-06-13 07:11] LABS: Lymphocytes 8 % (24-44); Monocyte 2 % (0.0-12.0); Neutrophils 90 % (36.0-66.0); Total Cells Counted 100; Toxic Granulation 1+
[2020-06-13 07:12] LABS: ANISOCYTOSIS 1+; Platelet Estimate NORMAL (NORMAL)
[2020-06-13 07:38] LABS: ALBUMIN 3.4 g/dL (3.5-5.0); ALKALINE PHOSPHATASE 190 U/L (38-126); ANION GAP 15.6 MEQ/L (5-15); BLOOD UREA NITROGEN 21 mg/dL (7-17); CHLORIDE 107 mmol/L (98-107); Calcium 9.3 mg/dL (8.4-10.2); Creatinine 1 0.75 mg/dL (0.52-1.04); EST GLOMERULAR FILTRATION RATE > 60.0 ML/MIN; Glucose 124 mg/dL (74-106); Potassium 4.6 mmol/L (3.5-5.1); SGOT/AST 23 U/L (14-36); SGPT/ALT 16 U/L (0-35); SODIUM 134 mmol/L (137-145); Total Protein 6.6 g/dL (6.3-8.2)
[2020-06-13 07:40] LABS: Carbon Dioxide 16 mmol/L (22-30)
--- NOTE | 2020-06-13 08:45 | XRAY ---
Indication: Left leg pain and swelling. Two-dimensional sonogram and color Doppler imaging of the major venous vessels of the left leg was performed. Comparison: None Extensive occluding deep vein thrombi seen in the common femoral, deep femoral, femoral, popliteal and greater saphenous veins. Nonoccluding deep vein thrombi in the posterior tibial vein. Impression: Extensive DVT throughout the entire left leg as detailed. Comment: Preliminary report was given.
--- NOTE | 2020-06-13 08:49 | XRAY ---
Indication: Left leg pain and swelling. Two-dimensional sonogram and color Doppler imaging of the major arteries of the left leg was performed. Comparison: None Visualized common femoral and mid to proximal superficial femoral arteries are widely patent. Mild arteriosclerotic disease seen in the distal superficial femoral, popliteal, posterior tibial, and dorsal pedal arteries without critical stenosis/obstruction. Arterial waveforms demonstrate normal multiphasic waveforms throughout the left leg. Impression: Mild scattered arteriosclerotic disease in the popliteal, posterior tibial and dorsal pedal arteries without critical stenosis/obstruction.
--- NOTE | 2020-06-13 08:50 | XRAY ---
Indication: Left leg swelling. Status post bowel resection 6 weeks ago. Multiple contiguous axial images obtained through the abdomen and pelvis without contrast as ordered. Comparison: June 04. Lung bases remain clear of infiltrate/effusion. Heart is not enlarged. Stable gastroesophageal postsurgical changes. Stomach is moderately distended with food/fluid. Mild fluid distended small bowel loops much less than before up to 3 cm in diameter with now normal colonic bowel gas. Small bowel findings possible ileus versus enteritis. No free fluid/air. There is now mild diffuse scattered colonic fecal debris throughout including rectum with stable descending/sigmoid diverticulosis. Splenic again demonstrates calcified granulomas. Remaining liver, pancreas, spleen, adrenal glands, kidneys, ureters, bladder, and uterus appear unremarkable for noncontrast exam. Again minimal aortic calcifications without AAA. Osseous structures intact again with degenerative changes throughout the thoracolumbar spine and scoliosis. Visualized left leg demonstrates new diffuse soft tissue swelling/edema incompletely visualized. Impression: 1. New incompletely visualized diffuse left leg soft tissue swelling/edema. See left leg venous ultrasound study of the same day. 2. Mild fluid distended small bowel loops less than before, ileus versus enteritis. 3. New diffuse fecal stasis. 4. Stable colonic diverticulosis and chronic bony findings.
[2020-06-13] MEDS ORDERED: Sodium Chloride 0.9% 1000 ML 1,000 ML IV STA (09:15)
[2020-06-13] MEDS ORDERED: Sodium Chloride 0.9% 1000 ML 1,000 ML ONE (09:18)
[2020-06-13] MEDS ORDERED: Heparin 5000 UNITS/0.5 ML (HIGH RISK MED) ONE (09:21)
[2020-06-13] MEDS ORDERED: Heparin 25,000 units/D5W 250ML PREMIX 25,000 UNITS/250 ML BAG IV ONE (09:21)
[2020-06-13 09:24] VITALS: BP 123/75; PULSE 70; O2SAT 99
== END 2020-06-13 10:21 | disposition short-term general hospital (02) ==
LOC: ED 06:01
DX: I80.202 Phlebitis and thrombophlebitis of unspecified deep vessels of left lower extremity (principal); R60.0 Localized edema; K56.7 Ileus, unspecified; K52.9 Noninfective gastroenteritis and colitis, unspecified; K57.90 Diverticulosis of intestine, part unspecified, without perforation or abscess without bleeding; M79.605 Pain in left leg; M79.89 Other specified soft tissue disorders
CPT/HCPCS: 36000; 36415; 74176; 80053; 82550; 83605; 85025; 85610; 85730; 93926; 93971; 96360; 96374; 96375; 96376; 99285; J1170; J1644; J2405

== ENCOUNTER 2022-10-25 18:23 | Observation (INO) | payer MEDICARE, OTHER ==
--- NOTE | 2022-10-25 18:48 | ERPHSYRPT ---
- History of Present Illness Source: patient Exam Limitations: no limitations Patient Subjective Stated Complaint: SOB Triage Nursing Assessment: Patient brought back to ED per w/c and transferred self to bed. Patient A+O X 3. Patient's skin pale ,warm and dry. Patient com plains of SOB, fever, productive cough with intermittent white sputum, nausea, bodyaches and headaches for 2 days. Lungs noted to have wheezing throughout. Patient complains of headache and body aches 3/10. Physician History: 67 yo wf w dyspnea x 2 days. Pt has had a cough x 2 days, subjective fever, and nausea. She denies vomiting/diarrhea/melena/hematochezia and chest pain. She does not use tobacco and has a h/o HTN and previous DVT after surgery. Timing/Duration: day(s) (2 days) Activities at Onset: rest Severity of Dyspnea-Max: moderate Severity of Dyspnea-Current: mild Possible Cause: no prior episodes Modifying Factors: Improves With: activity Associated Symptoms: denies symptoms Allergies/Adverse Reactions: No Known Drug Allergies Allergy (Verified 10/25/22 18:27) Home Medications: Montelukast Sodium 10 mg [Singulair 10 MG] 10 mg PO HS 03/09/18 [History] Duloxetine HCl 30 mg [Cymbalta 30 MG Capsule] 30 mg PO DAILY 10/25/22 [History] Multivitamin [Flintstones with Extra C] 2 tab PO DAILY 10/25/22 [History] Naproxen 250 mg PO BID 10/25/22 [History] Trazodone HCl 100 mg PO HS 10/25/22 [History] Hx Tetanus, Diphtheria Vaccination/Date Given: Yes Hx Influenza Vaccination/Date Given: No Hx Pneumococcal Vaccination/Date Given: No Immunizations Up to Date: Yes Travel Risk - International Travel Have you traveled outside of the country in past 3 weeks: No - Coronavirus Screening Are you exhibiting any of the following symptoms?: Yes Symptoms: Fever, Cough: New Onset, Shortness of Breath, Headaches/Body Aches/Fatigue Close contact with a COVID-19 positive Pt in past 14-21 Days: No - Vaccine Status Have you recieved a Covid-19 vaccination: Yes [employer]: [employer] - Vaccination Dates Date of 2cond Vaccination (if applicable): na - Review of Systems Constitutional: No Symptoms, Fever Eyes: No Symptoms Ears, Nose, & Throat: No Symptoms Respiratory: No Symptoms, Cough, Dyspnea Cardiac: No Symptoms Abdominal/Gastrointestinal: No Symptoms, Nausea Genitourinary Symptoms: No Symptoms Musculoskeletal: No Symptoms Skin: No Symptoms Neurological: No Symptoms Psychological: No Symptoms Endocrine: No Symptoms Hematologic/Lymphatic: No Symptoms Immunological/Allergic: No Symptoms - Past Medical History Pertinent Past Medical History: Yes Neurological History: No Pertinent History ENT History: No Pertinent History Cardiac History: Hypertension Respiratory History: Asthma Endocrine Medical History: No Pertinent History Musculoskeletal History: Arthritis GI Medical History: GERD, Other History: No Pertinent History Psycho-Social History: No Pertinent History Female Reproductive Disorders: No Pertinent History Other Medical History: R KNEE 'SCOPE - Past Surgical History Past Surgical History: Yes Neuro Surgical History: No Pertinent History Cardiac: No Pertinent History Respiratory: No Pertinent History Gastrointestinal: No Pertinent History Genitourinary: No Pertinent History Musculoskeletal: No Pertinent History Female Surgical History: Tubal Ligation Other Surgical History: gastric outlet obstruction - Social History Smoking Status: Never smoker Exposure to second hand smoke: No Drug Use: none Patient Lives Alone: No - Nursing Vital Signs Nursing Vital Signs: Initial Vital Signs Temperature 98.3 F 10/25/22 18:28 Pulse Rate 111 H 10/25/22 18:28 Respiratory Rate 21 10/25/22 18:28 Blood Pressure 119/79 10/25/22 18:28 O2 Sat by Pulse Oximetry 100 10/25/22 18:28 Pain Scale Pain Intensity 7 Tachy - Physical Exam General Appearance: no apparent distress Eye Exam: PERRL/EOMI, eyes nml inspection Ears, Nose, Throat Exam: hearing grossly normal, normal ENT inspection, normal pharynx Neck Exam: normal inspection, non-tender, supple, full range of motion, No Brudzinski, No Kernig's, No meningismus, No carotid bruit Respiratory Exam: normal breath sounds, lungs clear, airway intact, No respiratory distress Cardiovascular/Chest Exam: murmur (2/6 YARITZA), tachycardia Abdominal/Gastrointestinal Exam: soft, normal bowel sounds, No tenderness Extremity Exam: non-tender, normal range of motion, normal inspection, normal capillary refill Neurologic Exam: alert, oriented x 3, cooperative, insulation blower II-XII nml as tested, normal mood/affect, nml cerebellar function, nml station & gait, sensation nml, No motor deficits, No sensory deficit Skin Exam: pale Lymphatic Exam: No adenopathy SpO2 Interpretation: normal SpO2: 100 O2 Delivery: Room Air - Course Nursing assessment & vital signs reviewed: Yes EKG Interpreted by Me: RATE (Sinus tach/Rate 104/Normal QT-QTc/Flat Twaves/No acute ST segment changes) - Radiology Exams Chest X-ray Interpretation: Interpreted by me (CXR NAD) Ordered Tests: Active Orders 24 hr Category Date Time Status NPO Diet 10/25/22 20:32 Active CHEST 1 VIEW (PORTABLE) Stat Exams 10/25/22 18:43 Taken CBC W DIFF AM.LAB Lab 10/26/22 04:00 Ordered CBC W DIFF Stat Lab 10/25/22 18:53 Completed CMP AM.LAB Lab 10/26/22 04:00 Ordered CMP Stat Lab 10/25/22 18:53 Completed Lactic Acid Stat Lab 10/25/22 19:35 Completed NT PRO BNP Stat Lab 10/25/22 18:53 Completed Occult Blood Stool [FECAL OCCULT BLOOD -DIAGNOSTIC] Lab 10/25/22 20:34 Ordered Stat PROTIME WITH INR Stat Lab 10/25/22 18:53 Completed PTT Stat Lab 10/25/22 18:53 Completed TROPONIN Q4H Lab 10/25/22 18:53 Completed TROPONIN Q4H Lab 10/25/22 20:47 Completed TROPONIN Q4H Lab 10/26/22 02:45 Ordered UA W/RFX UR CULTURE Stat Lab 10/25/22 19:26 Completed Transfer Order Routine Transfer 10/25/22 Completed Medication Summary Generic Name Dose Route Start Last Admin Trade Name Eric PRN Reason Stop Dose Admin Acetaminophen 500 mg 10/25/22 22:16 Acetaminophen 500 Mg Tablet PO 11/24/22 22:29 Q4H PRN PAIN AND/OR FEVER Hydrocodone Bitart/Acetaminophen 1 tab 10/25/22 22:16 10/25/22 23:00 Hydrocodone/Apap 5/325 1 Tab Tablet PO 10/31/22 09:59 1 tab QID PRN Administration PAIN Sodium Chloride 1,000 mls @ 50 mls/hr 10/25/22 22:45 10/25/22 22:35 Sodium Chloride 0.9% 1000 Ml IV 11/24/22 22:44 50 mls/hr .Q20H YANA Administration Metoprolol Tartrate 25 mg 10/25/22 22:24 10/25/22 23:00 Metoprolol Tartrate 25 Mg Tab PO 11/24/22 21:59 25 mg BID YANA Administration Montelukast Sodium 10 mg 10/25/22 22:24 10/25/22 22:59 Montelukast Sodium 10 Mg Tablet PO 11/24/22 21:59 10 mg HS YANA Administration Ondansetron HCl 4 mg 10/25/22 20:31 10/25/22 21:25 Ondansetron Hcl 4 Mg/2 Ml Vial IV 11/24/22 20:30 4 mg Q6H PRN PRN Administration NAUSEA/VOMITING Pantoprazole Sodium 40 mg 10/25/22 22:24 10/25/22 22:59 Pantoprazole 40 Mg Vial IV 11/24/22 21:59 40 mg Q24H10 YANA Administration Trazodone HCl 100 mg 10/25/22 22:24 10/25/22 22:59 Trazodone Hcl 50 Mg Tablet PO 11/24/22 21:59 100 mg HS YANA Administration Discontinued Medications Generic Name Dose Route Start Last Admin Trade Name Freq PRN Reason Stop Dose Admin Acetaminophen 1,000 mg 10/25/22 20:30 10/25/22 20:31 Acetaminophen 500 Mg Tablet PO 10/25/22 20:31 1,000 mg STAT ONE Administration Acetaminophen Confirm 10/25/22 20:30 Acetaminophen 500 Mg Tablet Administered 10/25/22 20:31 Dose 1,000 mg .ROUTE .STK-MED ONE Furosemide 20 mg 10/25/22 20:33 Furosemide 20 Mg/Vial IV 10/25/22 20:34 AFTER EA UNIT BLOOD ONE Sodium Chloride Confirm 10/25/22 22:25 Sodium Chloride 0.9% 1000 Ml Administered 10/25/22 22:26 Dose 1,000 mls @ ud .ROUTE .STK-MED ONE Metoprolol Tartrate 25 mg 10/26/22 10:00 Metoprolol Tartrate 25 Mg Tab PO 11/25/22 09:59 BID YANA Montelukast Sodium 10 mg 10/26/22 22:00 Montelukast Sodium 10 Mg Tablet PO 11/25/22 21:59 HS YANA Pantoprazole Sodium 40 mg 10/26/22 10:00 Pantoprazole 40 Mg Vial IV 11/25/22 09:59 Q24H10 YANA Trazodone HCl 100 mg 10/26/22 22:00 Trazodone Hcl 50 Mg Tablet PO 11/25/22 21:59 HS [facility] Lab/Rad Data: Laboratory Result Diagrams 10/25/22 18:53 10/25/22 18:53 Laboratory Results 10/25/22 10/25/22 10/25/22 Range/Units 20:35 20:20 20:20 WBC (4.0-10.5) x10^3/uL RBC (4.1-5.4) x10^6/uL Hgb (12.0-16.0) g/dL Hct (35-47) % MCV (78-100) fL MCH (26-32) pg MCHC (32-36) g/dL RDW (11.5-14.0) % Plt Count (150-450) x10^3/uL MPV (7.5-11.0) fL Gran % (36.0-66.0) % Immature Gran % (Auto) (0.00-0.4) % Nucleat RBC Rel Count (0.00-0.1) % Eos # (Auto) (0-0.5) x10^3/uL Immature Gran # (Auto) (0.00-0.03) x10^3u/L Absolute Lymphs (auto) (1.0-4.6) x10^3/uL Absolute Monos (auto) (0.0-1.3) x10^3/uL Absolute Nucleated RBC (0.00-0.01) x10^3u/L Lymphocytes % (24.0-44.0) % Monocytes % (0.0-12.0) % Eosinophils % (0.00-5.0) % Basophils % (0.0-0.4) % Absolute Granulocytes (1.4-6.9) x10^3/uL Basophils # (0-0.4) x10^3/uL PT (9.4-12.5) SECONDS INR (0.8-3.0) APTT (25.1-36.5) SECONDS Sodium (137-145) mmol/L Potassium (3.5-5.1) mmol/L Chloride (98-107) mmol/L Carbon Dioxide (22-30) mmol/L Anion Gap (5-15) MEQ/L BUN (7-17) mg/dL Creatinine (0.52-1.04) mg/dL Estimated GFR ML/MIN Glucose (74-106) mg/dL Lactic Acid (0.4-2.0) Calcium (8.4-10.2) mg/dL Total Bilirubin (0.2-1.3) mg/dL AST (14-36) U/L ALT (0-35) U/L Alkaline Phosphatase (38-126) U/L Troponin I (0.000-0.034) ng/mL NT-Pro-B Natriuret Pep (0-900) pg/mL Serum Total Protein (6.3-8.2) g/dL Albumin (3.5-5.0) g/dL Urine Color (Yellow) Urine Appearance (Clear) Urine pH (4.6-8.0) Ur Specific [place] (1.005-1.030) Urine Protein (Negative) Urine Ketones (Negative) Urine Blood (Negative) Urine Nitrite (Negative) Urine Bilirubin (Negative) Urine Urobilinogen (0.2) mg/dL Ur Leukocyte Esterase (Negative) U Hyaline Cast (Auto) (0-2) /LPF Urine Microscopic RBC (0-5) /HPF Urine Microscopic WBC (0-5) /HPF Ur Epithelial Cells (None Seen) /HPF Urine Bacteria (None Seen) /HPF Urine Culture Reflexed (NO) Urine Glucose (Negative) mg/dL Influenza Type A Ag (NEGATIVE) Influenza Type B Ag (NEGATIVE) RSV (PCR) (Negative) SARS-CoV-2 (PCR) (NEGATIVE) ABO Group A Rh Factor NEGATIVE Antibody Screen NEGATIVE (NEGATIVE) Crossmatch COMPATIBLE COMPATIBLE COMPATIBLE (COMPATIBLE) 10/25/22 10/25/22 10/25/22 Range/Units 19:35 19:26 18:54 WBC (4.0-10.5) x10^3/uL RBC (4.1-5.4) x10^6/uL Hgb (12.0-16.0) g/dL Hct (35-47) % MCV (78-100) fL MCH (26-32) pg MCHC (32-36) g/dL RDW (11.5-14.0) % Plt Count (150-450) x10^3/uL MPV (7.5-11.0) fL Gran % (36.0-66.0) % Immature Gran % (Auto) (0.00-0.4) % Nucleat RBC Rel Count (0.00-0.1) % Eos # (Auto) (0-0.5) x10^3/uL Immature Gran # (Auto) (0.00-0.03) x10^3u/L Absolute Lymphs (auto) (1.0-4.6) x10^3/uL Absolute Monos (auto) (0.0-1.3) x10^3/uL Absolute Nucleated RBC (0.00-0.01) x10^3u/L Lymphocytes % (24.0-44.0) % Monocytes % (0.0-12.0) % Eosinophils % (0.00-5.0) % Basophils % (0.0-0.4) % Absolute Granulocytes (1.4-6.9) x10^3/uL Basophils # (0-0.4) x10^3/uL PT (9.4-12.5) SECONDS INR (0.8-3.0) APTT (25.1-36.5) SECONDS Sodium (137-145) mmol/L Potassium (3.5-5.1) mmol/L Chloride (98-107) mmol/L Carbon Dioxide (22-30) mmol/L Anion Gap (5-15) MEQ/L BUN (7-17) mg/dL Creatinine (0.52-1.04) mg/dL Estimated GFR ML/MIN Glucose (74-106) mg/dL Lactic Acid 1.7 (0.4-2.0) Calcium (8.4-10.2) mg/dL Total Bilirubin (0.2-1.3) mg/dL AST (14-36) U/L ALT (0-35) U/L Alkaline Phosphatase (38-126) U/L Troponin I (0.000-0.034) ng/mL NT-Pro-B Natriuret Pep (0-900) pg/mL Serum Total Protein (6.3-8.2) g/dL Albumin (3.5-5.0) g/dL Urine Color Yellow (Yellow) Urine Appearance Clear (Clear) Urine pH 5.5 (4.6-8.0) Ur Specific [place] 1.025 (1.005-1.030) Urine Protein Negative (Negative) Urine Ketones Negative (Negative) Urine Blood Negative (Negative) Urine Nitrite Negative (Negative) Urine Bilirubin Negative (Negative) Urine Urobilinogen 1.0 A (0.2) mg/dL Ur Leukocyte Esterase Trace A (Negative) U Hyaline Cast (Auto) 0-2 (0-2) /LPF Urine Microscopic RBC 0-2 (0-5) /HPF Urine Microscopic WBC 0-2 (0-5) /HPF Ur Epithelial Cells None Seen (None Seen) /HPF Urine Bacteria None Seen (None Seen) /HPF Urine Culture Reflexed NO (NO) Urine Glucose Negative (Negative) mg/dL Influenza Type A Ag NEGATIVE (NEGATIVE) Influenza Type B Ag NEGATIVE (NEGATIVE) RSV (PCR) NEGATIVE (Negative) SARS-CoV-2 (PCR) NEGATIVE (NEGATIVE) ABO Group Rh Factor Antibody Screen (NEGATIVE) Crossmatch (COMPATIBLE) 10/25/22 10/25/22 10/25/22 Range/Units 18:53 18:53 18:53 WBC (4.0-10.5) x10^3/uL RBC (4.1-5.4) x10^6/uL Hgb (12.0-16.0) g/dL Hct (35-47) % MCV (78-100) fL MCH (26-32) pg MCHC (32-36) g/dL RDW (11.5-14.0) % Plt Count (150-450) x10^3/uL MPV (7.5-11.0) fL Gran % (36.0-66.0) % Immature Gran % (Auto) (0.00-0.4) % Nucleat RBC Rel Count (0.00-0.1) % Eos # (Auto) (0-0.5) x10^3/uL Immature Gran # (Auto) (0.00-0.03) x10^3u/L Absolute Lymphs (auto) (1.0-4.6) x10^3/uL Absolute Monos (auto) (0.0-1.3) x10^3/uL Absolute Nucleated RBC (0.00-0.01) x10^3u/L Lymphocytes % (24.0-44.0) % Monocytes % (0.0-12.0) % Eosinophils % (0.00-5.0) % Basophils % (0.0-0.4) % Absolute Granulocytes (1.4-6.9) x10^3/uL Basophils # (0-0.4) x10^3/uL PT 11.2 (9.4-12.5) SECONDS INR 1.06 (0.8-3.0) APTT 23.6 L (25.1-36.5) SECONDS Sodium 136 L (137-145) mmol/L Potassium 4.2 (3.5-5.1) mmol/L Chloride 112 H (98-107) mmol/L Carbon Dioxide 19 L (22-30) mmol/L Anion Gap 8.6 (5-15) MEQ/L BUN 40 H (7-17) mg/dL Creatinine 0.62 (0.52-1.04) mg/dL Estimated GFR > 60.0 ML/MIN Glucose 154 H (74-106) mg/dL Lactic Acid (0.4-2.0) Calcium 8.1 L (8.4-10.2) mg/dL Total Bilirubin 0.30 (0.2-1.3) mg/dL AST 17 (14-36) U/L ALT 12 (0-35) U/L Alkaline Phosphatase 53 (38-126) U/L Troponin I < 0.012 (0.000-0.034) ng/mL NT-Pro-B Natriuret Pep 107 (0-900) pg/mL Serum Total Protein 4.3 L (6.3-8.2) g/dL Albumin 2.4 L (3.5-5.0) g/dL Urine Color (Yellow) Urine Appearance (Clear) Urine pH (4.6-8.0) Ur Specific [place] (1.005-1.030) Urine Protein (Negative) Urine Ketones (Negative) Urine Blood (Negative) Urine Nitrite (Negative) Urine Bilirubin (Negative) Urine Urobilinogen (0.2) mg/dL Ur Leukocyte Esterase (Negative) U Hyaline Cast (Auto) (0-2) /LPF Urine Microscopic RBC (0-5) /HPF Urine Microscopic WBC (0-5) /HPF Ur Epithelial Cells (None Seen) /HPF Urine Bacteria (None Seen) /HPF Urine Culture Reflexed (NO) Urine Glucose (Negative) mg/dL Influenza Type A Ag (NEGATIVE) Influenza Type B Ag (NEGATIVE) RSV (PCR) (Negative) SARS-CoV-2 (PCR) (NEGATIVE) ABO Group Rh Factor Antibody Screen (NEGATIVE) Crossmatch (COMPATIBLE) 10/25/22 Range/Units 18:53 WBC 11.8 H (4.0-10.5) x10^3/uL RBC 1.87 L (4.1-5.4) x10^6/uL Hgb 5.2 L* (12.0-16.0) g/dL Hct 18.3 L (35-47) % MCV 97.9 (78-100) fL MCH 27.8 (26-32) pg MCHC 28.4 L (32-36) g/dL RDW 13.7 (11.5-14.0) % Plt Count 511 H (150-450) x10^3/uL MPV 9.8 (7.5-11.0) fL Gran % 78.9 H (36.0-66.0) % Immature Gran % (Auto) 0.5 H (0.00-0.4) % Nucleat RBC Rel Count 0.0 (0.00-0.1) % Eos # (Auto) 0.18 (0-0.5) x10^3/uL Immature Gran # (Auto) 0.06 H (0.00-0.03) x10^3u/L Absolute Lymphs (auto) 1.34 (1.0-4.6) x10^3/uL Absolute Monos (auto) 0.87 (0.0-1.3) x10^3/uL Absolute Nucleated RBC 0.00 (0.00-0.01) x10^3u/L Lymphocytes % 11.4 L (24.0-44.0) % Monocytes % 7.4 (0.0-12.0) % Eosinophils % 1.5 (0.00-5.0) % Basophils % 0.3 (0.0-0.4) % Absolute Granulocytes 9.29 H (1.4-6.9) x10^3/uL Basophils # 0.04 (0-0.4) x10^3/uL PT (9.4-12.5) SECONDS INR (0.8-3.0) APTT (25.1-36.5) SECONDS Sodium (137-145) mmol/L Potassium (3.5-5.1) mmol/L Chloride (98-107) mmol/L Carbon Dioxide (22-30) mmol/L Anion Gap (5-15) MEQ/L BUN (7-17) mg/dL Creatinine (0.52-1.04) mg/dL Estimated GFR ML/MIN Glucose (74-106) mg/dL Lactic Acid (0.4-2.0) Calcium (8.4-10.2) mg/dL Total Bilirubin (0.2-1.3) mg/dL AST (14-36) U/L ALT (0-35) U/L Alkaline Phosphatase (38-126) U/L Troponin I (0.000-0.034) ng/mL NT-Pro-B Natriuret Pep (0-900) pg/mL Serum Total Protein (6.3-8.2) g/dL Albumin (3.5-5.0) g/dL Urine Color (Yellow) Urine Appearance (Clear) Urine pH (4.6-8.0) Ur Specific [place] (1.005-1.030) Urine Protein (Negative) Urine Ketones (Negative) Urine Blood (Negative) Urine Nitrite (Negative) Urine Bilirubin (Negative) Urine Urobilinogen (0.2) mg/dL Ur Leukocyte Esterase (Negative) U Hyaline Cast (Auto) (0-2) /LPF Urine Microscopic RBC (0-5) /HPF Urine Microscopic WBC (0-5) /HPF Ur Epithelial Cells (None Seen) /HPF Urine Bacteria (None Seen) /HPF Urine Culture Reflexed (NO) Urine Glucose (Negative) mg/dL Influenza Type A Ag (NEGATIVE) Influenza Type B Ag (NEGATIVE) RSV (PCR) (Negative) SARS-CoV-2 (PCR) (NEGATIVE) ABO Group Rh Factor Antibody Screen (NEGATIVE) Crossmatch (COMPATIBLE) Reviewed - Progress Progress Note: 10/25/22 20:20 All labs reviewed and shared with pt CXR neg per ER read Transfer per Dr. Clarke Pt became very unsteady during ambulation Pt T&C for 3 units packed RBC's Pt unable to produce stool for lab occult blood but denies melena/hematochezia [facility] all refused pt Obs per Dr. Clarke 10/25/22 20:35 Pt admitted for PRBC transfusion Pt ok w transfusion Discussed with : Gerardo Will see patient in: hospital (observation) Counseled pt/family regarding: lab results, diagnosis, need for follow-up, rad results - Departure Departure Disposition: Observation Clinical Impression: Anemia, GI bleed Condition: Stable Critical Care Time: Yes Critical Care Time(excluding separately billable procedures): Critical 30-74 mins
[2022-10-25 18:56] LABS: Absolute Neutrophil Ct (ANC) 9.29 x10^3/uL (1.4-6.9); BASOPHIL % 0.3 % (0.0-0.4); Basophil (Absolute #) 0.04 x10^3/uL (0-0.4); Eosinophil % 1.5 % (0.00-5.0); Eosinophil (Absolute #) 0.18 x10^3/uL (0-0.5); Hematocrit 18.3 % (35-47); IMMATURE GRAN # 0.06 x10^3u/L (0.00-0.03); IMMATURE GRAN % 0.5 % (0.00-0.4); Lymphocyte (Absolute #) 1.34 x10^3/uL (1.0-4.6); Lymphocytes % 11.4 % (24.0-44.0); Mean Cell Volume 97.9 fL (78-100); Mean Corpuscular Hemoglobin 27.8 pg (26-32); Mean Corpuscular Hgb Concent. 28.4 g/dL (32-36); Mean Platelet Volume 9.8 fL (7.5-11.0); Monocyte (Absolute #) 0.87 x10^3/uL (0.0-1.3); Monocytes % 7.4 % (0.0-12.0); Neutrophil % 78.9 % (36.0-66.0); Platelet Count 511 x10^3/uL (150-450); Red Blood Count 1.87 x10^6/uL (4.1-5.4); Red Cell Distribution Width 13.7 % (11.5-14.0); White Blood Count 11.8 x10^3/uL (4.0-10.5)
[2022-10-25 19:03] LABS: Hemoglobin 5.2 g/dL (12.0-16.0)
[2022-10-25 19:11] LABS: INR 1.06 (0.8-3.0); PROTIME 11.2 SECONDS (9.4-12.5); PTT 23.6 SECONDS (25.1-36.5)
[2022-10-25 19:18] LABS: ALBUMIN 2.4 g/dL (3.5-5.0); ALKALINE PHOSPHATASE 53 U/L (38-126); ANION GAP 8.6 MEQ/L (5-15); BLOOD UREA NITROGEN 40 mg/dL (7-17); CHLORIDE 112 mmol/L (98-107); Calcium 8.1 mg/dL (8.4-10.2); Carbon Dioxide 19 mmol/L (22-30); Creatinine 1 0.62 mg/dL (0.52-1.04); EST GLOMERULAR FILTRATION RATE > 60.0 ML/MIN; Glucose 154 mg/dL (74-106); NT PRO BNP 107 pg/mL (0-900); Potassium 4.2 mmol/L (3.5-5.1); SGOT/AST 17 U/L (14-36); SGPT/ALT 12 U/L (0-35); SODIUM 136 mmol/L (137-145); Total Protein 4.3 g/dL (6.3-8.2)
[2022-10-25 19:34] LABS: INFLUENZA A NEGATIVE (NEGATIVE); INFLUENZA B NEGATIVE (NEGATIVE); RESPIRATORY SYNCTIAL VIRUS NEGATIVE (Negative); SARS-CoV-2 Xpert Express NEGATIVE (NEGATIVE)
[2022-10-25] MEDS ORDERED: TYLENOL EXTRA STRENGTH 500 MG ONE (20:30)
[2022-10-25] MEDS ORDERED: TYLENOL EXTRA STRENGTH 500 MG PO ONE (20:30)
[2022-10-25] MEDS ORDERED: Zofran 4 MG/2 ML VIAL IV PRN (20:31)
[2022-10-25] MEDS ORDERED: Lasix 20 MG/2 ML IV ONE (20:33)
[2022-10-25 21:01] LABS: Appearance Clear (Clear); Bacteria None Seen /HPF (None Seen); Bilirubin Negative (Negative); Blood Negative (Negative); Epithelial Cells None Seen /HPF (None Seen); Glucose Negative (Negative); Hyaline Casts 0-2 /LPF (0-2); Ketones Negative (Negative); Leukocyte Esterase Trace (Negative); Nitrite Negative (Negative); Ph 5.5 (4.6-8.0); Protein,Urine Dip Negative (Negative); RBC 0-2 /HPF (0-5); Specific Gravity 1.025 (1.005-1.030); WBC 0-2 /HPF (0-5)
[2022-10-25 21:07] LABS: ADD URINE CULTURE? NO (NO)
[2022-10-25 22:04] LABS: ABO TYPING A; Antibody Screen NEGATIVE (NEGATIVE); RH TYPING NEGATIVE
[2022-10-25 22:07] LABS: CROSS MATCH (PRBC) COMPATIBLE (COMPATIBLE)
[2022-10-25] MEDS ORDERED: NORCO 5/325 MG PO PRN (22:16)
[2022-10-25] MEDS ORDERED: TYLENOL EXTRA STRENGTH 500 MG PO PRN (22:16)
[2022-10-25] MEDS ORDERED: Sodium Chloride 0.9% 1000 ML 1,000 ML ONE (22:25)
[2022-10-25] MEDS ORDERED: Sodium Chloride 0.9% 1000 ML 1,000 ML IV SCH (22:45)
[2022-10-25] MEDS: Singulair 10 MG PO SCH (22:59)
[2022-10-25] MEDS: DESYREL 50 MG PO SCH (22:59)
[2022-10-25] MEDS: PROTONIX 40 MG IV IV SCH (22:59)
[2022-10-25] MEDS: Lopressor 25MG Tab PO SCH (23:00)
[2022-10-26 05:36] LABS: Absolute Neutrophil Ct (ANC) 9.05 x10^3/uL (1.4-6.9); BASOPHIL % 0.4 % (0.0-0.4); Basophil (Absolute #) 0.05 x10^3/uL (0-0.4); Eosinophil % 1.4 % (0.00-5.0); Eosinophil (Absolute #) 0.16 x10^3/uL (0-0.5); Hematocrit 20.3 % (35-47); IMMATURE GRAN # 0.09 x10^3u/L (0.00-0.03); IMMATURE GRAN % 0.8 % (0.00-0.4); Lymphocyte (Absolute #) 1.44 x10^3/uL (1.0-4.6); Lymphocytes % 12.4 % (24.0-44.0); Mean Cell Volume 92.7 fL (78-100); Mean Corpuscular Hemoglobin 28.8 pg (26-32); Mean Platelet Volume 9.9 fL (7.5-11.0); Monocyte (Absolute #) 0.86 x10^3/uL (0.0-1.3); Monocytes % 7.4 % (0.0-12.0); NUCLEATED RBC # 0.03 x10^3u/L (0.00-0.01); NUCLEATED RBC % 0.3 % (0.00-0.1); Neutrophil % 77.6 % (36.0-66.0); Platelet Count 497 x10^3/uL (150-450); Red Blood Count 2.19 x10^6/uL (4.1-5.4); Red Cell Distribution Width 14.1 % (11.5-14.0); White Blood Count 11.7 x10^3/uL (4.0-10.5)
[2022-10-26 06:02] LABS: ALBUMIN 2.4 g/dL (3.5-5.0); ALKALINE PHOSPHATASE 61 U/L (38-126); ANION GAP 8.5 MEQ/L (5-15); BLOOD UREA NITROGEN 31 mg/dL (7-17); CHLORIDE 109 mmol/L (98-107); Calcium 8.3 mg/dL (8.4-10.2); Carbon Dioxide 23 mmol/L (22-30); Creatinine 1 0.57 mg/dL (0.52-1.04); EST GLOMERULAR FILTRATION RATE > 60.0 ML/MIN; Glucose 103 mg/dL (74-106); Potassium 4.2 mmol/L (3.5-5.1); SGOT/AST 18 U/L (14-36); SGPT/ALT 12 U/L (0-35); SODIUM 137 mmol/L (137-145); Total Protein 4.4 g/dL (6.3-8.2)
[2022-10-26 06:09] LABS: Hemoglobin 6.3 g/dL (12.0-16.0)
[2022-10-26] MEDS ORDERED: NORCO 5/325 MG PO PRN (07:53)
[2022-10-26] MEDS ORDERED: TYLENOL EXTRA STRENGTH 500 MG PO PRN (07:54)
--- NOTE | 2022-10-26 08:40 | XRAY ---
Indication: Fever and cough. Comparison: April 27, 2020 Portable chest remains inflated and clear. Heart is not enlarged for AP portable technique. Bony thorax intact with mild osteopenia and degenerative changes. Impression: Nonacute chest with chronic bony findings.
[2022-10-26] MEDS: PROTONIX 40 MG IV IV SCH (09:21)
[2022-10-26] MEDS: Cymbalta 30 MG Capsule PO SCH (09:22)
[2022-10-26] MEDS: Lopressor 25MG Tab PO SCH ×2 (09:23→22:41)
[2022-10-26] MEDS ORDERED: PROTONIX 40 MG IV IV SCH (10:00)
[2022-10-26] MEDS ORDERED: Lopressor 25MG Tab PO SCH (10:00)
--- NOTE | 2022-10-26 17:10 | PCM.HP ---
History of Present Illness - Chief Complaint Chief Complaint: Anemia, GI Bleed History of Present Illness: is a 67 year old female pt of Dr. Rodriguez with hx duodenal ulcers with GI surgery and subsequent bowel obstruction remotely (with DVT occuring afterward) who was admitted through ER with anemia and GI bleed. She c/o several days of feeling SOB, with fever, productive cough, nausea, body aches, and LOFTON. In ER she was noted to have a wheeze. Pt has been off of blood thinners for some time. In ER she was noted to have hgb 5.4. She was refused admission by [facility], , and [facility]. Denies any melena or hematochezia. She is on fluids, zofran, IV pantoprazole. She received 1 unit of blood already when I saw her this morning. She was feeling much better, not as achy. Cough was improved as well. She said she's been taking Aleve BID wtih food for 2 mo - scheduled for R total knee replacement on Nov 06, [address] Odonnell. - Review of Systems Constitutional: Weight Loss (intentional) Abdominal/Gastrointestinal: Abdominal Pain (epig, 3-4/10, worse with certain foods), Appetite Changes Neurological: Dizziness Psychological: Anxiety All Other Systems: Reviewed and Negative Medications & Allergies Home Medications: Home Medication List Montelukast Sodium 10 mg [Singulair 10 MG] 10 mg PO HS 03/09/18 [History Confirmed 10/25/22] Metoprolol Tartrate 100 mg PO BID #60 tablet 03/14/18 [Rx Confirmed 10/25/22] Duloxetine HCl 30 mg [Cymbalta 30 MG Capsule] 30 mg PO DAILY 10/25/22 [History Confirmed 10/25/22] Multivitamin [Flintstones with Extra C] 2 tab PO DAILY 10/25/22 [History Confirmed 10/25/22] Naproxen 250 mg PO BID 10/25/22 [History Confirmed 10/25/22] Trazodone HCl 100 mg PO HS 10/25/22 [History Confirmed 10/25/22] Allergies/Adverse Reactions: Allergies Allergy/AdvReac Type Severity Reaction Status Date / Time No Known Drug Allergies Allergy Verified 10/25/22 18:27 - Past Medical History Past Medical History: Yes Neurological History: No Pertinent History ENT History: No Pertinent History Cardiac History: Hypertension Respiratory History: Asthma Endocrine Medical History: No Pertinent History Musculoskelatal History: Arthritis GI Medical History: GERD, Other History: No Pertinent History Pyscho-Social History: No Pertinent History Reproductive Disorders: No Pertinent History Comment: R KNEE 'SCOPE - Female History Are you now?: No - Past Surgical History Past Surgical History: Yes Neuro Surgical History: No Pertinent History Cardiac History: No Pertinent History Respiratory Surgery: No Pertinent History GI Surgical History: No Pertinent History Genitourinary Surgical Hx: No Pertinent History Musculskeletal Surgical Hx: No Pertinent History Female Surgical History: Tubal Ligation Other Surgical History: gastric outlet obstruction - Social History Smoking Status: Never smoker Exposure to second hand smoke: No Alcohol: None Drug Use: none - Physical Exam Vital Signs: Vital Signs - 24 hr Temp Pulse Resp BP Pulse Ox 10/26/22 16:35 98.2 F 88 18 133/61 96 10/26/22 11:47 98.2 F 88 18 133/61 96 10/26/22 07:34 97.8 F 101 H 18 108/71 96 10/26/22 04:00 96.8 F 96 H 16 120/57 97 10/26/22 00:00 96.8 F 104 H 18 105/57 97 10/25/22 23:25 100 10/25/22 21:06 97.7 F 93 H 16 125/64 98 10/25/22 20:45 97.7 F 93 H 16 125/64 98 10/25/22 20:00 96 H 20 122/76 100 10/25/22 19:24 98 H 22 134/78 99 10/25/22 18:28 98.3 F 111 H 21 119/79 100 General Appearance: no apparent distress, alert Neurologic Exam: oriented x 3, cooperative Eye Exam: eyes nml inspection Ears, Nose, Throat Exam: moist mucous membranes Neck Exam: normal inspection, non-tender, No lymphadenopathy, No thyromegaly Respiratory Exam: normal breath sounds, lungs clear, No crackles/rales, No rhonchi, No wheezing Cardiovascular Exam: regular rate/rhythm, normal heart sounds, No murmur Gastrointestinal/Abdomen Exam: soft, normal bowel sounds, tenderness, rebound, No distention, No mass, No guarding Back Exam: normal inspection, No rash Extremity Exam: normal inspection, No pedal edema, No swelling Skin Exam: normal color, warm, dry, No rash Results - Labs Lab/Micro Results: Lab Results-Last 24 Hours 10/25/22 10/25/22 10/25/22 Range/Units 18:53 18:53 18:53 WBC 11.8 H (4.0-10.5) x10^3/uL RBC 1.87 L (4.1-5.4) x10^6/uL Hgb 5.2 L* (12.0-16.0) g/dL Hct 18.3 L (35-47) % MCV 97.9 (78-100) fL MCH 27.8 (26-32) pg MCHC 28.4 L (32-36) g/dL RDW 13.7 (11.5-14.0) % Plt Count 511 H (150-450) x10^3/uL MPV 9.8 (7.5-11.0) fL Gran % 78.9 H (36.0-66.0) % Immature Gran % (Auto) 0.5 H (0.00-0.4) % Nucleat RBC Rel Count 0.0 (0.00-0.1) % Eos # (Auto) 0.18 (0-0.5) x10^3/uL Immature Gran # (Auto) 0.06 H (0.00-0.03) x10^3u/L Absolute Lymphs (auto) 1.34 (1.0-4.6) x10^3/uL Absolute Monos (auto) 0.87 (0.0-1.3) x10^3/uL Absolute Nucleated RBC 0.00 (0.00-0.01) x10^3u/L Lymphocytes % 11.4 L (24.0-44.0) % Monocytes % 7.4 (0.0-12.0) % Eosinophils % 1.5 (0.00-5.0) % Basophils % 0.3 (0.0-0.4) % Absolute Granulocytes 9.29 H (1.4-6.9) x10^3/uL Basophils # 0.04 (0-0.4) x10^3/uL PT 11.2 (9.4-12.5) SECONDS INR 1.06 (0.8-3.0) APTT 23.6 L (25.1-36.5) SECONDS Sodium 136 L (137-145) mmol/L Potassium 4.2 (3.5-5.1) mmol/L Chloride 112 H (98-107) mmol/L Carbon Dioxide 19 L (22-30) mmol/L Anion Gap 8.6 (5-15) MEQ/L BUN 40 H (7-17) mg/dL Creatinine 0.62 (0.52-1.04) mg/dL Estimated GFR > 60.0 ML/MIN Glucose 154 H (74-106) mg/dL Lactic Acid (0.4-2.0) Calcium 8.1 L (8.4-10.2) mg/dL Total Bilirubin 0.30 (0.2-1.3) mg/dL AST 17 (14-36) U/L ALT 12 (0-35) U/L Alkaline Phosphatase 53 (38-126) U/L Troponin I (0.000-0.034) ng/mL NT-Pro-B Natriuret Pep 107 (0-900) pg/mL Serum Total Protein 4.3 L (6.3-8.2) g/dL Albumin 2.4 L (3.5-5.0) g/dL Urine Color (Yellow) Urine Appearance (Clear) Urine pH (4.6-8.0) Ur Specific [place] (1.005-1.030) Urine Protein (Negative) Urine Ketones (Negative) Urine Blood (Negative) Urine Nitrite (Negative) Urine Bilirubin (Negative) Urine Urobilinogen (0.2) mg/dL Ur Leukocyte Esterase (Negative) U Hyaline Cast (Auto) (0-2) /LPF Urine Microscopic RBC (0-5) /HPF Urine Microscopic WBC (0-5) /HPF Ur Epithelial Cells (None Seen) /HPF Urine Bacteria (None Seen) /HPF Urine Culture Reflexed (NO) Urine Glucose (Negative) mg/dL Stl Occult Blood (IFOB) (NEGATIVE) Influenza Type A Ag (NEGATIVE) Influenza Type B Ag (NEGATIVE) RSV (PCR) (Negative) SARS-CoV-2 (PCR) (NEGATIVE) ABO Group Rh Factor Antibody Screen (NEGATIVE) Crossmatch (COMPATIBLE) 10/25/22 10/25/2223 Range/Units 18:53 18:54 19:26 WBC (4.0-10.5) x10^3/uL RBC (4.1-5.4) x10^6/uL Hgb (12.0-16.0) g/dL Hct (35-47) % MCV (78-100) fL MCH (26-32) pg MCHC (32-36) g/dL RDW (11.5-14.0) % Plt Count (150-450) x10^3/uL MPV (7.5-11.0) fL Gran % (36.0-66.0) % Immature Gran % (Auto) (0.00-0.4) % Nucleat RBC Rel Count (0.00-0.1) % Eos # (Auto) (0-0.5) x10^3/uL Immature Gran # (Auto) (0.00-0.03) x10^3u/L Absolute Lymphs (auto) (1.0-4.6) x10^3/uL Absolute Monos (auto) (0.0-1.3) x10^3/uL Absolute Nucleated RBC (0.00-0.01) x10^3u/L Lymphocytes % (24.0-44.0) % Monocytes % (0.0-12.0) % Eosinophils % (0.00-5.0) % Basophils % (0.0-0.4) % Absolute Granulocytes (1.4-6.9) x10^3/uL Basophils # (0-0.4) x10^3/uL PT (9.4-12.5) SECONDS INR (0.8-3.0) APTT (25.1-36.5) SECONDS Sodium (137-145) mmol/L Potassium (3.5-5.1) mmol/L Chloride (98-107) mmol/L Carbon Dioxide (22-30) mmol/L Anion Gap (5-15) MEQ/L BUN (7-17) mg/dL Creatinine (0.52-1.04) mg/dL Estimated GFR ML/MIN Glucose (74-106) mg/dL Lactic Acid (0.4-2.0) Calcium (8.4-10.2) mg/dL Total Bilirubin (0.2-1.3) mg/dL AST (14-36) U/L ALT (0-35) U/L Alkaline Phosphatase (38-126) U/L Troponin I < 0.012 (0.000-0.034) ng/mL NT-Pro-B Natriuret Pep (0-900) pg/mL Serum Total Protein (6.3-8.2) g/dL Albumin (3.5-5.0) g/dL Urine Color Yellow (Yellow) Urine Appearance Clear (Clear) Urine pH 5.5 (4.6-8.0) Ur Specific [place] 1.025 (1.005-1.030) Urine Protein Negative (Negative) Urine Ketones Negative (Negative) Urine Blood Negative (Negative) Urine Nitrite Negative (Negative) Urine Bilirubin Negative (Negative) Urine Urobilinogen 1.0 A (0.2) mg/dL Ur Leukocyte Esterase Trace A (Negative) U Hyaline Cast (Auto) 0-2 (0-2) /LPF Urine Microscopic RBC 0-2 (0-5) /HPF Urine Microscopic WBC 0-2 (0-5) /HPF Ur Epithelial Cells None Seen (None Seen) /HPF Urine Bacteria None Seen (None Seen) /HPF Urine Culture Reflexed NO (NO) Urine Glucose Negative (Negative) mg/dL Stl Occult Blood (IFOB) (NEGATIVE) Influenza Type A Ag NEGATIVE (NEGATIVE) Influenza Type B Ag NEGATIVE (NEGATIVE) RSV (PCR) NEGATIVE (Negative) SARS-CoV-2 (PCR) NEGATIVE (NEGATIVE) ABO Group Rh Factor Antibody Screen (NEGATIVE) Crossmatch (COMPATIBLE) 10/25/22 10/25/22 10/25/22 Range/Units 19:35 20:20 20:20 WBC (4.0-10.5) x10^3/uL RBC (4.1-5.4) x10^6/uL Hgb (12.0-16.0) g/dL Hct (35-47) % MCV (78-100) fL MCH (26-32) pg MCHC (32-36) g/dL RDW (11.5-14.0) % Plt Count (150-450) x10^3/uL MPV (7.5-11.0) fL Gran % (36.0-66.0) % Immature Gran % (Auto) (0.00-0.4) % Nucleat RBC Rel Count (0.00-0.1) % Eos # (Auto) (0-0.5) x10^3/uL Immature Gran # (Auto) (0.00-0.03) x10^3u/L Absolute Lymphs (auto) (1.0-4.6) x10^3/uL Absolute Monos (auto) (0.0-1.3) x10^3/uL Absolute Nucleated RBC (0.00-0.01) x10^3u/L Lymphocytes % (24.0-44.0) % Monocytes % (0.0-12.0) % Eosinophils % (0.00-5.0) % Basophils % (0.0-0.4) % Absolute Granulocytes (1.4-6.9) x10^3/uL Basophils # (0-0.4) x10^3/uL PT (9.4-12.5) SECONDS INR (0.8-3.0) APTT (25.1-36.5) SECONDS Sodium (137-145) mmol/L Potassium (3.5-5.1) mmol/L Chloride (98-107) mmol/L Carbon Dioxide (22-30) mmol/L Anion Gap (5-15) MEQ/L BUN (7-17) mg/dL Creatinine (0.52-1.04) mg/dL Estimated GFR ML/MIN Glucose (74-106) mg/dL Lactic Acid 1.7 (0.4-2.0) Calcium (8.4-10.2) mg/dL Total Bilirubin (0.2-1.3) mg/dL AST (14-36) U/L ALT (0-35) U/L Alkaline Phosphatase (38-126) U/L Troponin I (0.000-0.034) ng/mL NT-Pro-B Natriuret Pep (0-900) pg/mL Serum Total Protein (6.3-8.2) g/dL Albumin (3.5-5.0) g/dL Urine Color (Yellow) Urine Appearance (Clear) Urine pH (4.6-8.0) Ur Specific [place] (1.005-1.030) Urine Protein (Negative) Urine Ketones (Negative) Urine Blood (Negative) Urine Nitrite (Negative) Urine Bilirubin (Negative) Urine Urobilinogen (0.2) mg/dL Ur Leukocyte Esterase (Negative) U Hyaline Cast (Auto) (0-2) /LPF Urine Microscopic RBC (0-5) /HPF Urine Microscopic WBC (0-5) /HPF Ur Epithelial Cells (None Seen) /HPF Urine Bacteria (None Seen) /HPF Urine Culture Reflexed (NO) Urine Glucose (Negative) mg/dL Stl Occult Blood (IFOB) (NEGATIVE) Influenza Type A Ag (NEGATIVE) Influenza Type B Ag (NEGATIVE) RSV (PCR) (Negative) SARS-CoV-2 (PCR) (NEGATIVE) ABO Group Rh Factor Antibody Screen (NEGATIVE) Crossmatch COMPATIBLE COMPATIBLE (COMPATIBLE) 10/25/22 10/25/22 10/26/22 Range/Units 20:35 20:47 04:26 WBC 11.7 H (4.0-10.5) x10^3/uL RBC 2.19 L (4.1-5.4) x10^6/uL Hgb 6.3 L* D (12.0-16.0) g/dL Hct 20.3 L (35-47) % MCV 92.7 (78-100) fL MCH 28.8 (26-32) pg MCHC 31.0 L (32-36) g/dL RDW 14.1 H (11.5-14.0) % Plt Count 497 H (150-450) x10^3/uL MPV 9.9 (7.5-11.0) fL Gran % 77.6 H (36.0-66.0) % Immature Gran % (Auto) 0.8 H (0.00-0.4) % Nucleat RBC Rel Count 0.3 H (0.00-0.1) % Eos # (Auto) 0.16 (0-0.5) x10^3/uL Immature Gran # (Auto) 0.09 H (0.00-0.03) x10^3u/L Absolute Lymphs (auto) 1.44 (1.0-4.6) x10^3/uL Absolute Monos (auto) 0.86 (0.0-1.3) x10^3/uL Absolute Nucleated RBC 0.03 H (0.00-0.01) x10^3u/L Lymphocytes % 12.4 L (24.0-44.0) % Monocytes % 7.4 (0.0-12.0) % Eosinophils % 1.4 (0.00-5.0) % Basophils % 0.4 (0.0-0.4) % Absolute Granulocytes 9.05 H (1.4-6.9) x10^3/uL Basophils # 0.05 (0-0.4) x10^3/uL PT (9.4-12.5) SECONDS INR (0.8-3.0) APTT (25.1-36.5) SECONDS Sodium (137-145) mmol/L Potassium (3.5-5.1) mmol/L Chloride (98-107) mmol/L Carbon Dioxide (22-30) mmol/L Anion Gap (5-15) MEQ/L BUN (7-17) mg/dL Creatinine (0.52-1.04) mg/dL Estimated GFR ML/MIN Glucose (74-106) mg/dL Lactic Acid (0.4-2.0) Calcium (8.4-10.2) mg/dL Total Bilirubin (0.2-1.3) mg/dL AST (14-36) U/L ALT (0-35) U/L Alkaline Phosphatase (38-126) U/L Troponin I < 0.012 (0.000-0.034) ng/mL NT-Pro-B Natriuret Pep (0-900) pg/mL Serum Total Protein (6.3-8.2) g/dL Albumin (3.5-5.0) g/dL Urine Color (Yellow) Urine Appearance (Clear) Urine pH (4.6-8.0) Ur Specific [place] (1.005-1.030) Urine Protein (Negative) Urine Ketones (Negative) Urine Blood (Negative) Urine Nitrite (Negative) Urine Bilirubin (Negative) Urine Urobilinogen (0.2) mg/dL Ur Leukocyte Esterase (Negative) U Hyaline Cast (Auto) (0-2) /LPF Urine Microscopic RBC (0-5) /HPF Urine Microscopic WBC (0-5) /HPF Ur Epithelial Cells (None Seen) /HPF Urine Bacteria (None Seen) /HPF Urine Culture Reflexed (NO) Urine Glucose (Negative) mg/dL Stl Occult Blood (IFOB) (NEGATIVE) Influenza Type A Ag (NEGATIVE) Influenza Type B Ag (NEGATIVE) RSV (PCR) (Negative) SARS-CoV-2 (PCR) (NEGATIVE) ABO Group A Rh Factor NEGATIVE Antibody Screen NEGATIVE (NEGATIVE) Crossmatch COMPATIBLE (COMPATIBLE) 10/26/22 10/26/22 10/26/22 Range/Units 04:26 04:29 14:50 WBC (4.0-10.5) x10^3/uL RBC (4.1-5.4) x10^6/uL Hgb (12.0-16.0) g/dL Hct (35-47) % MCV (78-100) fL MCH (26-32) pg MCHC (32-36) g/dL RDW (11.5-14.0) % Plt Count (150-450) x10^3/uL MPV (7.5-11.0) fL Gran % (36.0-66.0) % Immature Gran % (Auto) (0.00-0.4) % Nucleat RBC Rel Count (0.00-0.1) % Eos # (Auto) (0-0.5) x10^3/uL Immature Gran # (Auto) (0.00-0.03) x10^3u/L Absolute Lymphs (auto) (1.0-4.6) x10^3/uL Absolute Monos (auto) (0.0-1.3) x10^3/uL Absolute Nucleated RBC (0.00-0.01) x10^3u/L Lymphocytes % (24.0-44.0) % Monocytes % (0.0-12.0) % Eosinophils % (0.00-5.0) % Basophils % (0.0-0.4) % Absolute Granulocytes (1.4-6.9) x10^3/uL Basophils # (0-0.4) x10^3/uL PT (9.4-12.5) SECONDS INR (0.8-3.0) APTT (25.1-36.5) SECONDS Sodium 137 (137-145) mmol/L Potassium 4.2 (3.5-5.1) mmol/L Chloride 109 H (98-107) mmol/L Carbon Dioxide 23 (22-30) mmol/L Anion Gap 8.5 (5-15) MEQ/L BUN 31 H (7-17) mg/dL Creatinine 0.57 (0.52-1.04) mg/dL Estimated GFR > 60.0 ML/MIN Glucose 103 (74-106) mg/dL Lactic Acid (0.4-2.0) Calcium 8.3 L (8.4-10.2) mg/dL Total Bilirubin 0.30 (0.2-1.3) mg/dL AST 18 (14-36) U/L ALT 12 (0-35) U/L Alkaline Phosphatase 61 (38-126) U/L Troponin I < 0.012 (0.000-0.034) ng/mL NT-Pro-B Natriuret Pep (0-900) pg/mL Serum Total Protein 4.4 L (6.3-8.2) g/dL Albumin 2.4 L (3.5-5.0) g/dL Urine Color (Yellow) Urine Appearance (Clear) Urine pH (4.6-8.0) Ur Specific [place] (1.005-1.030) Urine Protein (Negative) Urine Ketones (Negative) Urine Blood (Negative) Urine Nitrite (Negative) Urine Bilirubin (Negative) Urine Urobilinogen (0.2) mg/dL Ur Leukocyte Esterase (Negative) U Hyaline Cast (Auto) (0-2) /LPF Urine Microscopic RBC (0-5) /HPF Urine Microscopic WBC (0-5) /HPF Ur Epithelial Cells (None Seen) /HPF Urine Bacteria (None Seen) /HPF Urine Culture Reflexed (NO) Urine Glucose (Negative) mg/dL Stl Occult Blood (IFOB) NEGATIVE (NEGATIVE) Influenza Type A Ag (NEGATIVE) Influenza Type B Ag (NEGATIVE) RSV (PCR) (Negative) SARS-CoV-2 (PCR) (NEGATIVE) ABO Group Rh Factor Antibody Screen (NEGATIVE) Crossmatch (COMPATIBLE) - Radiology Impressions Radiology Exams & Impressions: Radiology Procedures Category Date Time Status CHEST 1 VIEW (PORTABLE) Stat Exams 10/25/22 18:43 Completed PICC LINE PLACEMENT Routine Exams 10/27/22 22:13 Ordered Assessment/Plan (1) Anemia Current Visit: Yes Status: Acute Qualifiers: Anemia type: unspecified type Qualified Code(s): D64.9 - Anemia, unspecified Assessment & Plan: Consult surgery for EGD/colonoscopy. Needs 2 more units PRBC (for total of 3). Code(s): D64.9 - ANEMIA, UNSPECIFIED (2) GI bleed Current Visit: Yes Status: Acute Qualifiers: GI bleed type/associated pathology: unspecified gastrointestinal hemorrhage type Qualified Code(s): K92.2 - Gastrointestinal hemorrhage, unspecified Code(s): K92.2 - GASTROINTESTINAL HEMORRHAGE, UNSPECIFIED
[2022-10-26] MEDS ORDERED: Lactated Ringers 1,000 ML IV ONE (17:13)
[2022-10-26] MEDS ORDERED: DIPRIVAN 200 MG/20 ML IV ONE (17:25)
[2022-10-26] MEDS ORDERED: Xylocaine-Mpf 2% 5 Ml Vial ONE (17:25)
[2022-10-26] MEDS ORDERED: Lasix 20 MG/2 ML ONE (21:11)
[2022-10-26] MEDS ORDERED: Singulair 10 MG PO SCH (22:00)
[2022-10-26] MEDS ORDERED: DESYREL 50 MG PO SCH (22:00)
[2022-10-26] MEDS: DESYREL 50 MG PO SCH (22:40)
[2022-10-26] MEDS: Singulair 10 MG PO SCH (22:41)
[2022-10-27 05:51] LABS: Hematocrit 27.3 % (35-47); Hemoglobin 8.3 g/dL (12.0-16.0); Mean Cell Volume 92.9 fL (78-100); Mean Corpuscular Hemoglobin 28.2 pg (26-32); Mean Corpuscular Hgb Concent. 30.4 g/dL (32-36); Mean Platelet Volume 9.6 fL (7.5-11.0); Platelet Count 421 x10^3/uL (150-450); Red Blood Count 2.94 x10^6/uL (4.1-5.4); White Blood Count 7.7 x10^3/uL (4.0-10.5)
[2022-10-27 07:01] LABS: ANION GAP 5.4 MEQ/L (5-15); BLOOD UREA NITROGEN 14 mg/dL (7-17); CHLORIDE 108 mmol/L (98-107); Calcium 8.2 mg/dL (8.4-10.2); Carbon Dioxide 26 mmol/L (22-30); Creatinine 1 0.59 mg/dL (0.52-1.04); EST GLOMERULAR FILTRATION RATE > 60.0 ML/MIN; Glucose 100 mg/dL (74-106); Potassium 4.6 mmol/L (3.5-5.1); SODIUM 135 mmol/L (137-145)
--- NOTE | 2022-10-27 08:17 | CONS ---
CONSULT DATE: 10/26/2022 HISTORY: This is a patient who presented to the emergency room with some shortness of breath. She also states that she has been having some upper abdominal pain and feeling lousy. She was worked up and found to have severe anemia and so we were consulted to identify the source of the potential GI bleed. The patient reports that her pain has mainly been in her upper abdomen and that she does have a history of peptic ulcer disease in the past many years ago. She said that they had to cut scar tissue around her duodenum from the peptic ulcer disease and also removed a third of her stomach and reroute her bowels. About a month later she had a bowel obstruction which she had another surgery for and since then she has not any stomach procedure. She has never had a colonoscopy. She has never had problems with anesthesia. She has never noticed any bleeding in her stool. PAST MEDICAL HISTORY: Includes reflux disease, peptic ulcer disease, arthritis, asthma and hypertension. PAST SURGICAL HISTORY: Includes the gastric surgery for peptic ulcer disease and procedure for bowel obstruction. She also has had a tubal ligation and orthopedic surgery. MEDICATIONS: Medications and allergies are reviewed. On review of the medications, the patient states she takes naproxen about four times per week. ALLERGIES: NKDA. FAMILY HISTORY: Noncontributory. REVIEW OF SYSTEMS: The patient is resting comfortably in bed. She has already had one unit of blood. She is on her second unit blood. She looks great. She said she feels way better. She has continued to have some mild upper abdominal pain which is intermittent. Her repeat hemoglobin is pending and she is on her second unit of blood. DIAGNOSIS: Severe anemia with history of peptic ulcer disease and high concern for an upper GI slow bleed. RECOMMENDATIONS: I think the patient should continue to get her second unit of blood. She is doing very well with this and this has significantly improved her symptoms. She has no chest pain. She has no shortness of breath. She does have some upper abdominal pain. I think this is likely related to an upper GI source. We discussed the risks, benefits and alternatives of an EGD which she would like to proceed with. She is hesitant about doing a colonoscopy and I think given her history it would be very reasonable to do the EGD first and if this is negative and then proceed with a colonoscopy. If the EGD is positive, we will treat what we find and I did stress to her that she will need a colonoscopy as an outpatient more on a screening basis even if she does not end up needing one as an inpatient. She has been NPO. We have answered all of her questions. She understands and agrees. She would like to proceed with the EGD today. Her family is at bedside and all of their questions have been answered as well. All of her labs and tests have been personally reviewed with her.
[2022-10-27] MEDS ORDERED: PROTONIX 40 MG IV IV SCH (10:00)
[2022-10-27] MEDS: Cymbalta 30 MG Capsule PO SCH (15:14)
[2022-10-27] MEDS: Lopressor 25MG Tab PO SCH (15:14)
[2022-10-27 16:05] VITALS: BP 169/88; PULSE 82; O2SAT 99
--- NOTE | 2022-10-27 16:51 | XRAY ---
Indication: History of stomach ulcers and bowel blockage with partial gastrectomy 2.5 years ago. Gastric bezoar. Status post EGD endoscopy. Comparison: None Double contrast upper GI exam performed. Patient ingested barium without miss swallow or aspiration. Esophagus is normal in course and caliber. No focal stricture, obstruction, or filling defect. Barium freely empties into the stomach. No hiatal hernia or gastroesophageal reflux demonstrated. Stomach is moderately distended with EGD proven large gastric bezoar. Contours of the lesser and greater curvature of the stomach appears smooth. There is normal gastric emptying into what appears to be ileum, left mid of midline. Findings consistent with patient's history of partial gastrectomy. No contrast extravasation/leak. Small bowel follow-through exam reported separately. Impression: 1. Large endoscopic proven gastric bezoar. 2. Normal postsurgical changes related to clinically reported partial gastrectomy. 3. Remaining double contrast upper GI exam is negative. 4. Approximately 0.8 minute fluoroscopy used.
--- NOTE | 2022-10-27 16:53 | XRAY ---
Indication: History of stomach ulcers and bowel blockage with partial gastrectomy 2.5 years ago. Gastric bezoar. Status post EGD endoscopy. Comparison: None Upper GI exam reported separately. Preliminary music leader abdomen is nonacute and nonobstructed with mild scattered colonic fecal debris, epigastric surgical clips, and left mid abdomen suture material. Following upper GI exam, patient ingested additional cup of barium with multiple overhead delayed radiographs obtained. There is normal antegrade movement of the barium to the level of the transverse colon within 3 hours and 40 minutes. Small bowel loops are normal in course and caliber without focal stricture, obstruction, filling defect, or inflammatory changes. Normal appearing ileocecal junction. Impression: Slow small bowel follow-through exam in a otherwise negative exam.
--- NOTE | 2022-10-27 17:09 | PCM.DS ---
Discharge Summary Date of Admission: 10/25/22 20:40 Admitting Physician: NELL TENORIO Consults: Consults on Case 10/25/22 22:15 Consult Surgery ROUTINE 10/26/22 08:58 Consult Surgery ROUTINE Primary Care Provider: NELL TENORIO Allergies Allergies No Known Drug Allergies Allergy (Verified 10/25/22 18:27) Hospital Summary - Hospital Course Hospital Course: Pt is 67 yo female who came in to ER with hgb 5.4 - was feeling achy with LOFTON and cough. She felt much better with transfusion and hgb up > 8 (given 3 units PRBC). Pt feels "great" this morning, no abd pain, no nausea, just hungry! Has been passing flatus and had a stool yesterday that was "average." On EGD, apparently there was an area of blood vs food, unsure, so pt had sm bowel follw UGI today. It was negative, so pt was given CLD and is cleared by surgery to go home and have colonoscopy outpatient. Will give pt small amt solid food, if OK d/c home in 1 hr. - Vitals & Intake/Output Vital Signs: Vital Signs Temperature 97.9 F 10/27/22 16:00 Pulse Rate 82 10/27/22 16:00 Respiratory Rate 16 10/27/22 16:00 Blood Pressure 169/88 10/27/22 16:00 O2 Sat by Pulse Oximetry 99 10/27/22 16:00 Intake & Output: Intake & Output 10/25/22 10/26/22 10/27/22 10/28/22 11:59 11:59 11:59 11:59 Intake Total 30 584 Output Total 1000 Balance -970 584 Weight 81.1 kg 81.1 kg - Lab Result Diagrams: 10/27/22 04:40 10/27/22 04:40 Lab Results-Last 24 Hrs: Lab Results-Last 24 Hours 10/26/22 10/27/22 10/27/22 Range/Units 21:25 04:40 04:40 WBC 7.7 (4.0-10.5) x10^3/uL RBC 2.94 L (4.1-5.4) x10^6/uL Hgb 8.3 L D (12.0-16.0) g/dL Hct 27.3 L (35-47) % MCV 92.9 (78-100) fL MCH 28.2 (26-32) pg MCHC 30.4 L (32-36) g/dL RDW 15.0 H (11.5-14.0) % Plt Count 421 (150-450) x10^3/uL MPV 9.6 (7.5-11.0) fL Sodium (137-145) mmol/L Potassium (3.5-5.1) mmol/L Chloride (98-107) mmol/L Carbon Dioxide (22-30) mmol/L Anion Gap (5-15) MEQ/L BUN (7-17) mg/dL Creatinine (0.52-1.04) mg/dL Estimated GFR ML/MIN Glucose (74-106) mg/dL Calcium (8.4-10.2) mg/dL Troponin I < 0.012 < 0.012 (0.000-0.034) ng/mL 10/27/22 Range/Units 04:40 WBC (4.0-10.5) x10^3/uL RBC (4.1-5.4) x10^6/uL Hgb (12.0-16.0) g/dL Hct (35-47) % MCV (78-100) fL MCH (26-32) pg MCHC (32-36) g/dL RDW (11.5-14.0) % Plt Count (150-450) x10^3/uL MPV (7.5-11.0) fL Sodium 135 L (137-145) mmol/L Potassium 4.6 (3.5-5.1) mmol/L Chloride 108 H (98-107) mmol/L Carbon Dioxide 26 (22-30) mmol/L Anion Gap 5.4 (5-15) MEQ/L BUN 14 (7-17) mg/dL Creatinine 0.59 (0.52-1.04) mg/dL Estimated GFR > 60.0 ML/MIN Glucose 100 (74-106) mg/dL Calcium 8.2 L (8.4-10.2) mg/dL Troponin I (0.000-0.034) ng/mL - Radiology Exams Ordered Rad Exams-Entire Visit: Radiology Procedures Category Date Time Status CHEST 1 VIEW (PORTABLE) Stat Exams 10/25/22 18:43 Completed SMALL BOWEL FOLLOWING UGI Routine Exams 10/27/22 00:45 Completed UPPER GI W/AIR Routine Exams 10/27/22 11:24 Completed - Procedures and Test Procedures and Tests throughout Hospitalization: Therapy Orders & Screens 10/26/22 18:00 EKG ONCE Comment: Diagnosis: Anemia, GI Bleed Discharge Exam General Appearance: no apparent distress, alert Neurologic Exam: oriented x 3, cooperative Eye Exam: eyes nml inspection Ears, Nose, Throat Exam: moist mucous membranes Neck Exam: normal inspection Respiratory Exam: normal breath sounds, lungs clear, No crackles/rales, No rhonchi Cardiovascular Exam: regular rate/rhythm, normal heart sounds, No murmur Gastrointestinal/Abdomen Exam: soft, normal bowel sounds, No tenderness, No distention, No mass, No guarding, No rebound Back Exam: normal inspection, No rash Extremity Exam: normal inspection, No pedal edema, No swelling Final Diagnosis/Problem List - Final Discharge Diagnosis/Problem (1) Anemia Current Visit: Yes Status: Acute Assessment & Plan: unsure etiology - had EGD and sm bowel study without definite result. Will need colonoscopy outpatient. F/u with surgery and PCP. Code(s): D64.9 - ANEMIA, UNSPECIFIED (2) GI bleed Current Visit: Yes Status: Resolved Assessment & Plan: Return to ER [facility] for any rectal bleeding or black tarry stool, vomiting blood, severe abdominal pain, or any other worrisome sign. Code(s): K92.2 - GASTROINTESTINAL HEMORRHAGE, UNSPECIFIED - Discharge Disposition: Home, Self-Care Condition: Good Prescriptions: New PANTOPRAZOLE 40 mg Tablet [Protonix 40MG Tablet] 40 mg PO QAM #30 tab Continue Montelukast Sodium 10 mg [Singulair 10 MG] 10 mg PO HS Metoprolol Tartrate 100 mg PO BID #60 tablet Trazodone HCl 100 mg PO HS Duloxetine HCl 30 mg [Cymbalta 30 MG Capsule] 30 mg PO DAILY Multivitamin [Flintstones with Extra C] 2 tab PO DAILY Discontinued Naproxen 250 mg PO BID Follow up with: ALICE MARKHAM MD [ACTIVE STAFF] - Call for Appointment
--- NOTE | 2022-11-12 08:30 | OP ---
PROCEDURE DATE/TIME: 10/26/2022 1725 PREOPERATIVE DIAGNOSIS: Melena suspect for upper GI bleed. POSTOPERATIVE DIAGNOSIS: Melena suspect for upper GI bleed plus significant gastric bezoar. PROCEDURE: EGD. PROCEDURE PERFORMED BY: Marilee Armstrong M.D. ANESTHESIA: MAC. COMPLICATIONS: None. SPECIMENS: None. HISTORY: This is a patient who presents for EGD. Her risks, benefits, alternatives have been discussed with her in detail. Her consent has also been reviewed and confirmed as well as the H&P. She would like to proceed with EGD. DESCRIPTION OF PROCEDURE: She is brought to the endoscopy suite prior to inducing anesthesia. She did have a slightly abnormal waveform on her monitor. She got an EKG and this looked similar to her prior EKG. She is having absolutely no symptoms at all and her vitals are otherwise stable. I discussed this with her. She wanted to proceed with the procedure, myself and anesthesia think this is appropriate and we will closely watch the monitor. I did discuss with the Hospitalist investigation lieutenant regarding these concerns as well as at the completion of the procedure so they may further follow up as they deem necessary. The patient was completely stable throughout the procedure and we did not have any concerns. Anesthesia was induced. She was laid in the left lateral decubitus position. The scope was then introduced into the mouth, oropharynx down into the esophagus. She did have some free flow of reflux and at the distal esophagus junction with the stomach I immediately encountered food. We suctioned all the liquid immediately upon encountering liquid and then I continued to insert the scope down to the level of the distal stomach. However the stomach was so packed with food, I had an extremely poor visualization. There was only a small area of the stomach that was open that I was able to insufflate and guide my scope along the side to attempt to visualize further but we did come to a point within the gastric body where it was not safe to proceed and I was completely blocked with regards to the food. There were some dark black-colored material as well mixed in her this could be blood. It is very hard to say with the amount of food in here whether it is blood tinged or if it is just food but there is so much food that the material seen is not only blood. I did try to irrigate to allow us to clear a path to get a better visualization of the anatomy but this was also not possible due to the fact that this looked all solid. Throughout the time we took great care to continue to suction any liquid and to be cautious and quick given the amount of food in the stomach. I then aborted the procedure, withdrew the scope. The patient tolerated the procedure very well. There were no complications at all. She will be returning to the floor. I did discuss with her family the findings and that we will need to keep her on some sips of liquid only. She will need to be sitting up and she cannot have any food right now. We will attempt to order an upper GI study to see if this can better define her anatomy so we can see what exactly is going on here. They understand and agree and would like to continue with this plan. We will await the further radiographic studies.
== END 2022-10-27 18:01 | disposition home or self-care (01) ==
LOC: ED 18:23 → MED SURG 20:40
PROVIDERS: ADMIT Family Medicine; ATTEND Family Medicine
DX: D64.9 Anemia, unspecified (principal); K92.2 Gastrointestinal hemorrhage, unspecified; I10 Essential (primary) hypertension; Z79.899 Other long term (current) drug therapy; Z20.828 Contact with and (suspected) exposure to other viral communicable diseases
CPT/HCPCS: 00731; 0241U; 36000; 36415; 36430; 43235; 71045; 74246; 74248; 80048; 80053; 81001; 82274; 83605; 83880; 84484; 85025; 85027; 85610; 85730; 86850; 86900; 86901; 86922; 93005; 93268; 99140; 99284; 99291; G0378; P9016; J1940; J2405; J2704; A9270-GY

== ENCOUNTER 2023-01-05 23:09 | Inpatient (IN) | payer MEDICARE, OTHER ==
[2023-01-06] MEDS ORDERED: Zofran 4 MG/2 ML VIAL IV ONE (00:05)
[2023-01-06] MEDS ORDERED: MORPHINE SULFATE 4 MG INJ IV ONE ×2 (00:05→01:23)
[2023-01-06] MEDS ORDERED: Sodium Chloride 0.9% 1000 ML 1,000 ML IV SCH (00:15)
[2023-01-06] MEDS ORDERED: Sodium Chloride 0.9% 1000 ML 1,000 ML ONE ×2 (00:21→09:52)
[2023-01-06] MEDS ORDERED: Zofran 4 MG/2 ML VIAL ONE (00:21)
[2023-01-06] MEDS ORDERED: MORPHINE SULFATE 4 MG INJ ONE (00:21)
[2023-01-06 00:38] LABS: Hematocrit 31.7 % (35-47); Hemoglobin 9.8 g/dL (12.0-16.0); Mean Cell Volume 87.1 fL (78-100); Mean Corpuscular Hemoglobin 26.9 pg (26-32); Mean Corpuscular Hgb Concent. 30.9 g/dL (32-36); Mean Platelet Volume 9.3 fL (7.5-11.0); Platelet Count 803 x10^3/uL (150-450); Red Blood Count 3.64 x10^6/uL (4.1-5.4); Red Cell Distribution Width 15.8 % (11.5-14.0); White Blood Count 2.3 x10^3/uL (4.0-10.5)
[2023-01-06 00:53] LABS: ALBUMIN 2.3 g/dL (3.5-5.0); ANION GAP 15.4 MEQ/L (5-15); BILIRUBIN,TOTAL 0.4 mg/dL (0.2-1.3); Calcium 8.1 mg/dL (8.4-10.2); Creatinine 1 1.39 mg/dL (0.52-1.04); EST GLOMERULAR FILTRATION RATE 40.2 ML/MIN; Potassium 4.5 mmol/L (3.5-5.1); Total Protein 4.8 g/dL (6.3-8.2)
--- NOTE | 2023-01-06 01:17 | ERPHSYRPT ---
- History of Present Illness Time Seen by Provider: 01/05/23 23:30 Historian: patient Exam Limitations: no limitations Patient Subjective Stated Complaint: pt states she has been having intermittent lower abd pain si nce wednesday morning. tonight pain started around 2129 and was worse than previously. describes as constant cramping pain and rates 10/10 Triage Nursing Assessment: pt alert and oriented, answers questions approp. pt arrive per ambulance and transfers to [facility] with assist of 4. respirations nonlabored. skin warm and dry. abd tender to palpation in lower quadrants. bowel sounds present. Physician History: Patient is a 67-year-old female presents to emergency department via EMS for evaluation of abdominal pain. Pain started approximately 2129. However patient states she has been experiencing crampy pain for the past several days. No trauma. No fever. Symptoms are progressive. Symptoms are moderate in intensity. No specific worsening or improving factors. Patient received 50 mcg of fentanyl x2 and arrival to our ED. EMS reports patient was difficult to obtain IV access. Patient has a history of bowel obstruction and states her symptoms are the same. Family at bedside. They voiced no other complaints or concerns at this time. Portions of this note were created with voice recognition technology. There may be grammatical, spelling, punctuation or sound alike errors Timing/Duration: today Activities at Onset: none Quality: aching Abdominal Pain Onset Location: generalized abdomen, other (Abdomen appears somewhat distended. Diminished bowel sounds. Mild diffuse abdominal pain) Severity of Pain-Max: moderate Severity of Pain-Current: mild Modifying Factors: Improves With: other (Palpation to abdomen.) Associated Symptoms: other Previous symptoms: same symptoms as today Allergies/Adverse Reactions: No Known Drug Allergies Allergy (Verified 01/05/23 23:30) Home Medications: Montelukast Sodium 10 mg [Singulair 10 MG] 10 mg PO HS 03/09/18 [History] Duloxetine HCl 30 mg [Cymbalta 30 MG Capsule] 30 mg PO DAILY 10/25/22 [History] Multivitamin [Flintstones with Extra C] 2 tab PO DAILY 10/25/22 [History] Trazodone HCl 100 mg PO HS 10/25/22 [History] Hx Tetanus, Diphtheria Vaccination/Date Given: Yes Hx Influenza Vaccination/Date Given: No Hx Pneumococcal Vaccination/Date Given: No Immunizations Up to Date: Yes Travel Risk - International Travel Have you traveled outside of the country in past 3 weeks: No - Coronavirus Screening Are you exhibiting any of the following symptoms?: No Close contact with a COVID-19 positive Pt in past 14-21 Days: No - Vaccine Status Have you recieved a Covid-19 vaccination: Yes [employer]: Pfizer - Vaccination Dates Date of 2cond Vaccination (if applicable): 2020 - Review of Systems Constitutional: No Symptoms, No Fever, No Chills Eyes: No Symptoms Ears, Nose, & Throat: No Symptoms Respiratory: No Symptoms, No Cough, No Dyspnea Cardiac: No Symptoms, No Chest Pain, No Edema, No Syncope Abdominal/Gastrointestinal: No Symptoms, No Abdominal Pain, No Nausea, No Vomiting, No Diarrhea Genitourinary Symptoms: No Symptoms, No Dysuria Musculoskeletal: No Symptoms, No Back Pain, No Neck Pain Skin: No Symptoms, No Rash Neurological: No Symptoms, No Dizziness, No Focal Weakness, No Sensory Changes Psychological: No Symptoms Endocrine: No Symptoms Hematologic/Lymphatic: No Symptoms Immunological/Allergic: No Symptoms All Other Systems: Reviewed and Negative - Past Medical History Pertinent Past Medical History: Yes Neurological History: No Pertinent History ENT History: No Pertinent History Cardiac History: Hypertension Respiratory History: Asthma Endocrine Medical History: No Pertinent History Musculoskeletal History: Arthritis GI Medical History: GERD, Other History: No Pertinent History Psycho-Social History: No Pertinent History Female Reproductive Disorders: No Pertinent History Other Medical History: R KNEE 'SCOPE, hx of bleeding gastric ulcers - Past Surgical History Past Surgical History: Yes Neuro Surgical History: No Pertinent History Cardiac: No Pertinent History Respiratory: No Pertinent History Gastrointestinal: No Pertinent History Genitourinary: No Pertinent History Musculoskeletal: No Pertinent History Female Surgical History: Tubal Ligation Other Surgical History: gastric outlet obstruction - Social History Smoking Status: Never smoker Exposure to second hand smoke: No Drug Use: none Patient Lives Alone: No - Nursing Vital Signs Nursing Vital Signs: Initial Vital Signs Temperature 97.4 F 01/05/23 23:13 Pulse Rate 106 H 01/05/23 23:13 Respiratory Rate 16 01/05/23 23:13 Blood Pressure 139/92 01/05/23 23:13 O2 Sat by Pulse Oximetry 98 01/05/23 23:13 Pain Scale Pain Intensity 6 - Physical Exam General Appearance: no apparent distress, alert Eye Exam: PERRL/EOMI, eyes nml inspection Ears, Nose, Throat Exam: normal ENT inspection, TMs normal, pharynx normal, moist mucous membranes Neck Exam: normal inspection, non-tender, supple, full range of motion Respiratory Exam: normal breath sounds, lungs clear, airway intact, No respiratory distress Cardiovascular Exam: regular rate/rhythm, normal heart sounds, normal peripheral pulses Gastrointestinal/Abdomen Exam: soft, No tenderness, No mass Back Exam: normal inspection, normal range of motion, No CVA tenderness, No vertebral tenderness Extremity Exam: normal inspection, normal range of motion, pelvis stable Neurologic Exam: alert, oriented x 3, cooperative, normal mood/affect, nml cerebellar function, sensation nml, No motor deficits Skin Exam: normal color, warm, dry Lymphatic Exam: No adenopathy SpO2 Interpretation: normal SpO2: 98 O2 Delivery: Room Air - Course Nursing assessment & vital signs reviewed: Yes EKG Interpreted by Me: RATE (129), Sinus Tach, NORMAL AXIS, NORMAL INTERVALS - CT Exams Abdomen/Pelvis CT Interpretation: Tele-radiologist Report (Mild gallbladder distention surgical changes in the region of the gastroesophageal junction. Surgical changes of partial gastrectomy. Moderate wall thickening of the gastric body and antrum with adjacent associated fat stranding likely gastritis. Colonic diverticulosis. ) Ordered Tests: Active Orders 24 hr Category Date Time Status EKG-ER Only STAT Care 01/06/23 01:24 Active IV Insertion STAT Care 01/06/23 00:05 Active ABDOMEN AND PELVIS W/0 CONTRAS [CT] Stat Exams 01/06/23 00:06 Taken CBC W DIFF Stat Lab 01/06/23 00:25 Completed CMP Stat Lab 01/06/23 00:25 Completed LIPASE Stat Lab 01/06/23 00:25 Completed Manual Differential NC Stat Lab 01/06/23 00:25 Completed PROTIME WITH INR Stat Lab 01/06/23 01:24 Ordered PTT Stat Lab 01/06/23 01:24 Ordered TROPONIN Q4H Lab 01/06/23 00:25 Completed TROPONIN Q4H Lab 01/06/23 04:15 Ordered TROPONIN Q4H Lab 01/06/23 08:15 Ordered UA W/RFX UR CULTURE Stat Lab 01/06/23 00:06 Ordered Medication Summary Generic Name Dose Route Start Last Admin Trade Name Freq PRN Reason Stop Dose Admin Sodium Chloride 1,000 mls @ 100 mls/hr 01/06/23 00:15 01/06/23 00:25 Sodium Chloride 0.9% 1000 Ml IV 02/05/23 00:14 100 mls/hr .Q10H YANA Administration Piperacillin Sod/Tazobactam 100 mls @ 200 mls/hr 01/06/23 01:19 01/06/23 01:25 Sod 3.375 gm/ Sodium Chloride IV 01/06/23 01:48 200 mls/hr STAT ONE Administration Discontinued Medications Generic Name Dose Route Start Last Admin Trade Name Eric PRN Reason Stop Dose Admin Morphine Sulfate 4 mg 01/06/23 00:05 01/06/23 00:27 Morphine Sulfate 4 Mg/Ml Injection IV 01/06/23 00:06 4 mg STAT ONE Administration Morphine Sulfate Confirm 01/06/23 00:21 Morphine Sulfate 4 Mg/Ml Injection Administered 01/06/23 00:22 Dose 4 mg .ROUTE .STK-MED ONE Morphine Sulfate 4 mg 01/06/23 01:23 Morphine Sulfate 4 Mg/Ml Injection IV 01/06/23 01:24 STAT ONE Ondansetron HCl 4 mg 01/06/23 00:05 01/06/23 00:26 Ondansetron Hcl 4 Mg/2 Ml Vial IV 01/06/23 00:06 4 mg STAT ONE Administration Ondansetron HCl Confirm 01/06/23 00:21 Ondansetron Hcl 4 Mg/2 Ml Vial Administered 01/06/23 00:22 Dose 4 mg .ROUTE .STK-MED ONE Lab/Rad Data: Laboratory Result Diagrams 01/06/23 00:25 01/06/23 00:25 Laboratory Results 01/06/23 01/06/23 01/06/23 Range/Units 00:25 00:25 00:25 WBC 2.3 L (4.0-10.5) x10^3/uL RBC 3.64 L (4.1-5.4) x10^6/uL Hgb 9.8 L (12.0-16.0) g/dL Hct 31.7 L (35-47) % MCV 87.1 (78-100) fL MCH 26.9 (26-32) pg MCHC 30.9 L (32-36) g/dL RDW 15.8 H (11.5-14.0) % Plt Count 803 H (150-450) x10^3/uL MPV 9.3 (7.5-11.0) fL Sodium 130 L (137-145) mmol/L Potassium 4.5 (3.5-5.1) mmol/L Chloride 101 (98-107) mmol/L Carbon Dioxide 17 L (22-30) mmol/L Anion Gap 15.4 H (5-15) MEQ/L BUN 62 H (7-17) mg/dL Creatinine 1.39 H (0.52-1.04) mg/dL Estimated GFR 40.2 ML/MIN Glucose 117 H (74-106) mg/dL Calcium 8.1 L (8.4-10.2) mg/dL Total Bilirubin 0.40 (0.2-1.3) mg/dL AST 20 (14-36) U/L ALT 19 (0-35) U/L Alkaline Phosphatase 97 (38-126) U/L Troponin I < 0.012 (0.000-0.034) ng/mL Serum Total Protein 4.8 L (6.3-8.2) g/dL Albumin 2.3 L (3.5-5.0) g/dL Lipase 22 L (23-300) U/L - Progress Progress: improved Progress Note: Continuation of CT scan findings. Moderate amount of free intraperitoneal gas most compatible with bowel or gastric perforation. No definite source identified. No evidence of appendicitis. Small amount of free intraperitoneal fluid. Small fat and fluid containing ventral hernia. Bilateral pleural effusions right greater than left with associated atelectasis. Moderate wall thickening of the gastric body and antrum with adjacent associated fat stranding likely gastritis. Case discussed with Dr. Pride at approximately 1:20 AM. will take patient to the OR immediately. OR team call then. Patient received a dose of Zosyn antibiotic. second IV line started. Fluid bolus initiated. Second dose of morphine administered for pain control. Patient reassessed. Patient appears to be in good spirits. Patient conversant no acute distress. 01/06/23 01:27 Last meal 4 PM. 01/06/23 01:31 Per , Dr. Chappell contacted regarding admission. Dr. Chappell excepts admission as primary. Dr. Osullivan will take consultation and manage all surgical aspects of patient's admission. Patient is a 67-year-old female presents to our ED via EMS for evaluation of abdominal pain. Abdominal pain has been getting progressively worse over the past several hours. Patient's problem is acute in onset. Complexity of problems addressed is critical. The problem is a life-threatening condition. Condition requiring critical intervention in this case emergent surgery. Critical care time spent is approximately 3 hours. Diagnosis is perforated viscus. Patient's heart rate is tachycardic. Management/surgery indicated to prevent further deterioration. Patient's condition requires immediate action. Patient served as independent historian. Test ordered include CT abdomen pelvis, CBC which reveals leukopenia and a normocytic anemia and bandemia, CMP which reveals a hyponatremia. COVID testing ordered. Lipase negative. Lactic acid ordered. Coagulation profile PT/PTT/INR. Troponin ordered. Urinalysis ordered. Type and screen ordered. Acute renal injury observed. Hypoalbuminemia observed. Patient was taken immediately to the OR for further evaluation and treatment. Complexity of data reviewed and analyzed is high. Patient served as EMS. Patient's significant other as well as patient all provided history and contributed towards HPI. Patient served as independent historian in this case as she provided the majority of the information. Patient received IV morphine and Dilaudid for pain control. Risk of complication and or morbidity/mortality patient management is high. Patient received IV morphine and Dilaudid for pain control. Patient will be admitted to our hospital. Patient taken to surgery emergently for evaluation and treatment of perforated viscus. Plan of care discussed with patient. She agrees to admission to [facility] for further evaluation and treatment. Portions of this note were created with voice recognition technology. There may be grammatical, spelling, punctuation or sound alike errors 01/06/23 02:10 Discussed with : Renetta Will see patient in: hospital (observation) Counseled pt/family regarding: lab results, diagnosis, rad results - Departure Departure Disposition: Observation Clinical Impression: Perforated abdominal viscus, Leukopenia, Normocytic anemia, Thrombocytosis, Bandemia, Hyponatremia, Acute renal injury, Hypoalbuminemia Condition: Stable Critical Care Time: No Referrals: NELL TENORIO MD [Primary Care Provider] - Follow up/PCP as directed
[2023-01-06] MEDS ORDERED: PIPERACILLIN/TAZOBACTAM 3.375 GM in Sodium Chloride 100ML MINI-BAG PLUS 100 ML IV ONE (01:19)
[2023-01-06] MEDS ORDERED: Sodium Chloride 100ML MINI-BAG PLUS 100 ML IV ONE (01:23)
[2023-01-06] MEDS ORDERED: PIPERACILLIN/TAZOBACTAM IV ONE (01:23)
[2023-01-06 01:26] LABS: BAND 16 % (0.0-2.0); Eosinophil 1 % (0.00-3.0); Lymphocytes 12 % (24-44); Monocyte 3 % (0.0-12.0); Neutrophils 68 % (36.0-66.0); Nucleated Red Blood Cell 1 %; Platelet Estimate INCREASED (NORMAL); Total Cells Counted 100
[2023-01-06 01:41] LABS: INR 1.01 (0.8-3.0); PTT 36.5 SECONDS (25.1-36.5)
[2023-01-06] MEDS ORDERED: Hydromorphone 1 mg/ml Injection IV ONE (02:01)
[2023-01-06] MEDS ORDERED: Lactated Ringers 1,000 ML IV ONE (02:09)
[2023-01-06] MEDS ORDERED: Hydromorphone 1 mg/ml Injection ONE (02:11)
[2023-01-06] MEDS ORDERED: AlbuRx 25% 50ML VIAL*** 100 ML IV ONE (02:14)
[2023-01-06] MEDS ORDERED: Sodium Chloride 0.9% 500 ML 500 ML IV ONE ×2 (02:14→15:05)
[2023-01-06] MEDS ORDERED: Lactated Ringers 3,000 ML IV ONE (02:14)
[2023-01-06] MEDS ORDERED: Sensorcaine 0.25% 10 ML ONE (02:16)
[2023-01-06] MEDS ORDERED: SUBLIMAZE 250 MCG/5 ML ONE (02:16)
[2023-01-06] MEDS ORDERED: Versed 2 MG/2 ML Injection ONE (02:16)
[2023-01-06] MEDS ORDERED: DIPRIVAN 200 MG/20 ML IV ONE (02:16)
[2023-01-06] MEDS ORDERED: Quelicin Fliptop 200 MG/10 ML ONE (02:16)
[2023-01-06 02:22] LABS: INFLUENZA A NEGATIVE (NEGATIVE); INFLUENZA B NEGATIVE (NEGATIVE); RESPIRATORY SYNCTIAL VIRUS NEGATIVE (NEGATIVE); SARS-CoV-2 Xpert Express NEGATIVE (NEGATIVE)
[2023-01-06] MEDS ORDERED: Xylocaine-Mpf 2% 5 Ml Vial ONE (02:35)
[2023-01-06 03:00] LABS: ABO TYPING A; Antibody Screen NEGATIVE (NEGATIVE); RH TYPING NEGATIVE
[2023-01-06] MEDS ORDERED: BREVIBLOC 100 MG/10 ML IV ONE (03:03)
[2023-01-06] MEDS ORDERED: PHENYLEPHRINE HCL ONE ×2 (03:09→05:31)
[2023-01-06] MEDS ORDERED: DILAUDID 2 MG INJECTION ONE (03:47)
[2023-01-06] MEDS ORDERED: SUBLIMAZE 100 MCG/2 ML ONE (03:48)
[2023-01-06 04:21] LABS: Potassium 4.8 mmol/L (3.5-5.1)
[2023-01-06] MEDS ORDERED: Sodium Bicarbonate 50 MEQ/50 ML VIAL ONE (04:38)
[2023-01-06 04:39] LABS: A-aADO2 -57; ABG HEMOGLOBIN 9.5; ABG POTASSIUM 4.8 (3.5-5.1); ARTERIAL BLOOD GAS BASE EXCESS -11.5 (-2.0-2.0); ARTERIAL BLOOD GAS FIO2 21 %; ARTERIAL BLOOD GAS PCO2 36 mmHg (35-45); ARTERIAL BLOOD GAS PO2 162 mmHg (75-100); CARBOXYHEMOGLOBIN 1.8 % THgb (0.0-6.9); HCO3- 15.1 (22-28); HGB O2 SAT 96.9 g/dF (94-100); Methhemoglobin 1.4 % (1.4-1.5); paO2 pAO1 1.54
[2023-01-06 04:40] LABS: ARTERIAL BLOOD GAS pH 7.23 (7.35-7.45)
[2023-01-06 04:41] LABS: ABG SITE AL
[2023-01-06 05:12] LABS: A-aADO2 137; ABG HEMOGLOBIN 8.9; ABG POTASSIUM 4.2 (3.5-5.1); ABG SITE AL; ARTERIAL BLOOD GAS BASE EXCESS -7.5 (-2.0-2.0); ARTERIAL BLOOD GAS FIO2 50 %; ARTERIAL BLOOD GAS PCO2 36 mmHg (35-45); ARTERIAL BLOOD GAS PO2 175 mmHg (75-100); ARTERIAL BLOOD GAS pH 7.31 (7.35-7.45); HCO3- 18.1 (22-28); HGB O2 SAT 96.8 g/dF (94-100); Methhemoglobin 1.2 % (1.4-1.5); paO2 pAO1 0.56
[2023-01-06] MEDS ORDERED: Dextrose 5%/Water IV Soln. 250 ML 250 ML IV ONE (05:32)
[2023-01-06] MEDS ORDERED: Propofol 1000 mg/100 ml Bottle 100 ML IV ONE (05:32)
[2023-01-06] MEDS ORDERED: Sodium Chloride 0.9% 1000 ML 2,000 ML ONE (05:37)
[2023-01-06] MEDS: DEXTROSE IV PRN ×5 (06:30→15:07)
[2023-01-06] MEDS: Propofol 1000 mg/100 ml Bottle 100 ML IV PRN ×2 (06:30→11:27)
[2023-01-06] MEDS: PHENYLEPHRINE HCL IV PRN ×5 (06:30→15:07)
[2023-01-06] MEDS: WATER IV PRN ×5 (06:30→15:07)
[2023-01-06] MEDS ORDERED: Hydromorphone 1 mg/ml Injection IV PRN (06:31)
[2023-01-06] MEDS ORDERED: NOREPINEPHRINE 8 MG/250 ML-D5W 8 MG/250 ML PLAST..BAG IV ONE ×2 (06:56)
[2023-01-06] MEDS: NOREPINEPHRINE 8 MG/250 ML-D5W 8 MG/250 ML PLAST..BAG IV PRN ×2 (07:00→12:57)
[2023-01-06 07:04] LABS: A-aADO2 224; ABG HEMOGLOBIN 10.4; ABG POTASSIUM 4.4 (3.5-5.1); ARTERIAL BLD GAS TIDAL VOLUME 450 cc; ARTERIAL BLOOD GAS BASE EXCESS -12.3 (-2.0-2.0); ARTERIAL BLOOD GAS FIO2 60 %; ARTERIAL BLOOD GAS PCO2 38 mmHg (35-45); ARTERIAL BLOOD GAS PO2 156 mmHg (75-100); ARTERIAL BLOOD GAS VENT MODE A/C; CARBOXYHEMOGLOBIN 2.2 % THgb (0.0-6.9); HCO3- 14.9 (22-28); HGB O2 SAT 96.5 g/dF (94-100); Methhemoglobin 1.3 % (1.4-1.5); paO2 pAO1 0.41
[2023-01-06 07:05] LABS: ABG SITE ARTLINE
[2023-01-06] MEDS ORDERED: PITRESSIN IV SCH (07:30)
[2023-01-06] MEDS ORDERED: SODIUM CHLORIDE 0.9% IV SCH (07:30)
[2023-01-06 07:33] LABS: Hematocrit 39.3 % (35-47); Hemoglobin 11.4 g/dL (12.0-16.0); Mean Corpuscular Hemoglobin 26.4 pg (26-32); Mean Platelet Volume 9.5 fL (7.5-11.0); Platelet Count 877 x10^3/uL (150-450); Red Blood Count 4.32 x10^6/uL (4.1-5.4); Red Cell Distribution Width 16.1 % (11.5-14.0)
[2023-01-06] MEDS: Sodium Chloride 0.9% 1000 ML 1,000 ML IV SCH ×2 (07:34→13:19)
[2023-01-06 07:36] LABS: White Blood Count 1.5 x10^3/uL (4.0-10.5)
[2023-01-06 07:48] LABS: ALBUMIN 1.7 g/dL (3.5-5.0); ANION GAP 17.8 MEQ/L (5-15); BILIRUBIN,TOTAL 0.3 mg/dL (0.2-1.3); Calcium 7.1 mg/dL (8.4-10.2); Creatinine 1 1.1 mg/dL (0.52-1.04); EST GLOMERULAR FILTRATION RATE 52.7 ML/MIN; Potassium 4.7 mmol/L (3.5-5.1); Total Protein 3.4 g/dL (6.3-8.2)
[2023-01-06] MEDS: PIPERACILLIN/TAZOBACTAM 3.375 GM in Sodium Chloride 100ML MINI-BAG PLUS 100 ML IV SCH ×2 (08:15→11:42)
[2023-01-06 08:18] LABS: A-aADO2 225; ABG HEMOGLOBIN 11.2; ABG POTASSIUM 4.7 (3.5-5.1); ARTERIAL BLD GAS TIDAL VOLUME 450 cc; ARTERIAL BLOOD GAS BASE EXCESS -14.6 (-2.0-2.0); ARTERIAL BLOOD GAS FIO2 60 %; ARTERIAL BLOOD GAS PCO2 30 mmHg (35-45); ARTERIAL BLOOD GAS PO2 165 mmHg (75-100); ARTERIAL BLOOD GAS VENT MODE A/C; ARTERIAL BLOOD GAS pH 7.21 (7.35-7.45); CARBOXYHEMOGLOBIN 2.2 % THgb (0.0-6.9); HGB O2 SAT 96.8 g/dF (94-100); paO2 pAO1 0.42
[2023-01-06] MEDS: FLAGYL 500 MG IVPB 500 MG/100 ML BAG IV SCH ×2 (08:18→13:28)
[2023-01-06] MEDS ORDERED: Sodium Bicarbonate 50 MEQ/50 ML VIAL IV ONE (08:28)
[2023-01-06 08:45] VITALS: O2SAT 100
--- NOTE | 2023-01-06 08:49 | XRAY ---
Indication: Tube placement. Comparison: October 25, 2022. Portable chest demonstrates new endotracheal tube tip 4.5 cm above renita, NG tube tip in stomach, right central venous access catheter projecting atriocaval junction, and left upper quadrant abdominal drainage tubing. Lungs are underinflated without pneumothorax. Minimal bibasilar infiltrates/atelectasis. Heart not enlarged.
--- NOTE | 2023-01-06 08:52 | XRAY ---
Indication: Confirm tube placement. Comparison: Taken earlier in the day. Portable chest demonstrates advancement endotracheal tube tip now 3 cm above renita and also advancement NG tube still in the stomach. Stable right jugular central venous access catheter tip at atriocaval junction and left upper abdomen drainage tubing. Lungs remain underinflated without pneumothorax. Stable minimal bibasilar infiltrates/atelectasis. Heart not enlarged.
--- NOTE | 2023-01-06 08:53 | CONS ---
CONSULT DATE: 01/06/2023 HISTORY: The patient is a 67-year-old female overweight, has history of gastric surgery and also describes she had her stomach removed in the past. She has had lower abdominal pain that started on Wednesday worse today so she came in the emergency room overnight here and saw me at about [address] scan showed moderate amount of free intraperitoneal gas and fluid, pleural effusions. She has some gastric wall thickening of the gastric body and antrum. PAST MEDICAL HISTORY: Asthma, hypertension, gastroesophageal reflux disease, arthritis, overweight. PAST SURGICAL HISTORY: Partial gastrectomy in the past. Long standing bezoar in the past. Knee scope. She had some sort of twisted bowel surgery. She had a tubal in the past. MEDICATIONS: Duloxetine, metoprolol, montelukast, multivitamin, trazodone. ALLERGIES: NKDA. FAMILY HISTORY: Negative in regards to this problem. SOCIAL HISTORY: No smoking or alcohol abuse. REVIEW OF SYSTEMS: Fourteen systems reviewed per admission assessment. No chest pain or palpitations. Other systems negative or noncontributory as above, pertinent for abdominal pain. LAB DATA AND TESTS: White count 2.3, hemoglobin 9.8, PLT 887,000. Liver function test was okay here. Lipase 22. PHYSICAL EXAMINATION: Temperature 97.4F, pulse 106, blood pressure 139/92, respiratory rate 16. GENERAL: A 67-year-old ill appearing, awake and alert. HEENT: Sclera nonicteric. NECK: No JVD. CHEST: Equal excursion, nonlabored breathing. CVS: Regular rate and rhythm. ABDOMEN: Soft with some generalized tenderness, obese. EXTREMITIES: No cyanosis. NEURO: Alert. PSYCH: Appropriate mood and affect. IMPRESSION: Perforated viscus. CT films were personally reviewed by me. Moderate amount of free air, looks like there is some free fluid reaction, prior gastric surgery, perforated colon or diverticulitis is unclear at this point. I feel she would benefit from exploratory laparotomy possible bowel resection, possible ostomy. General risk of bleeding or infection, risk of intraabdominal abscess formation, ongoing infection or sepsis, risk of wound complications, hernia, dehiscence, possible need for stoma, possible risk for stoma complications, hernia, necrosis, retraction possibly requiring other procedures. General risk of anesthesia, deep vein thrombosis, pulmonary embolism, pneumonia, risk of cardiopulmonary event but not limited to. Risk of sepsis, infection, respiratory failure, renal failure. Risk of mortality but not limited to. Consent obtained. Will proceed with exploratory laparotomy possible bowel resection possible ostomy when OR time available.
[2023-01-06 09:01] LABS: ATYPICAL LYMPHS 1 %; BAND 2 % (0.0-2.0); Eosinophil 1 % (0.00-3.0); Lymphocytes 34 % (24-44); Monocyte 13 % (0.0-12.0); Neutrophils 49 % (36.0-66.0); Nucleated Red Blood Cell 3 %; Platelet Estimate INCREASED (NORMAL); Total Cells Counted 100
[2023-01-06 09:02] LABS: ANISOCYTOSIS 1+
[2023-01-06 09:03] LABS: Toxic Granulation 1+
--- NOTE | 2023-01-06 09:11 | XRAY ---
Indication: Abdomen/pelvic pain. Nausea, vomiting, diarrhea. Multiple contiguous axial images obtained through the abdomen and pelvis without contrast. Comparison: June 13, 2020 Lung bases demonstrates new incompletely visualized small right effusion with minimal right base compressive atelectasis. Heart not enlarged. Distal esophagus mildly distended with food/fluid favoring GERD. Stomach is distended with food with stable postsurgical changes. Noncontrasted stomach and bowel loops appear nonobstructed again with scattered colonic diverticulosis. New small free fluid and free air throughout the abdomen/pelvis. Etiology not clearly demonstrated. Also new abnormally distended gallbladder without obvious gallstones or biliary distention. Remaining liver, pancreas, spleen, adrenal glands, kidneys, ureters, bladder, and uterus are unremarkable for noncontrast exam. Again minimal aortoiliac calcifications without AAA. Osseous structures intact again with osteopenia, mild/moderate degenerative changes throughout the thoracolumbar spine, and scoliosis. New small left periumbilical fatty ventral hernia. Impression: 1. New abdominal/pelvic free fluid and free air with no clear identifiable etiology. GI perforation is of primary concern. 2. New abnormally distended gallbladder better evaluated with sonogram. 3. New small right effusion/atelectasis and GERD. 4. Again chronic findings including colonic diverticulosis, arteriosclerotic disease, and chronic bony findings. Comment: Preliminary interpretation made by C. No critical discrepancy.
--- NOTE | 2023-01-06 09:35 | PCM.HP ---
History of Present Illness - Chief Complaint Chief Complaint: Perforated viscus History of Present Illness: is a 67 year old female with a longstanding history of peptic ulcer disease with previous gastric outlet obstruction repaired by Dr Lemon at in the past, she has apparently been having some pain in her abdomen with worsening since 5 days ago, became more severe yesterday. she has been unable to eat much and poor appetite with an increased heart rate and bp fluctuations according to her . she came to ER early this morning and found to have free air on ct scan, went to surgery with Dr Khan who found a perforated ulcer with gross peritonitis and large amounts of stomach contents in her peritoneal cavity. she is currently intubated and in the ICU post surgery. - Review of Systems All Other Systems: Unable due to condition Medications & Allergies Home Medications: Home Medication List Montelukast Sodium 10 mg [Singulair 10 MG] 10 mg PO HS 03/09/18 [History Confirmed 01/05/23] Metoprolol Tartrate 100 mg PO BID #60 tablet 03/14/18 [Rx Confirmed 01/05/23] Duloxetine HCl 30 mg [Cymbalta 30 MG Capsule] 30 mg PO DAILY 10/25/22 [History Confirmed 01/05/23] Multivitamin [Flintstones with Extra C] 2 tab PO DAILY 10/25/22 [History Confirmed 01/05/23] Trazodone HCl 100 mg PO HS 10/25/22 [History Confirmed 01/05/23] Allergies/Adverse Reactions: Allergies Allergy/AdvReac Type Severity Reaction Status Date / Time No Known Drug Allergies Allergy Verified 01/05/23 23:30 - Past Medical History Past Medical History: Yes Neurological History: No Pertinent History ENT History: No Pertinent History Cardiac History: Hypertension Respiratory History: Asthma Endocrine Medical History: No Pertinent History Musculoskelatal History: Arthritis GI Medical History: GERD, Other History: No Pertinent History Pyscho-Social History: No Pertinent History Reproductive Disorders: No Pertinent History Comment: R KNEE 'SCOPE, hx of bleeding gastric ulcers - Past Surgical History Past Surgical History: Yes Neuro Surgical History: No Pertinent History Cardiac History: No Pertinent History Respiratory Surgery: No Pertinent History GI Surgical History: No Pertinent History Genitourinary Surgical Hx: No Pertinent History Musculskeletal Surgical Hx: No Pertinent History Female Surgical History: Tubal Ligation Other Surgical History: gastric outlet obstruction - Social History Smoking Status: Never smoker Exposure to second hand smoke: No Alcohol: None Drug Use: none - Physical Exam Vital Signs: Vital Signs - 24 hr Temp Pulse Resp BP Pulse Ox 01/06/23 08:20 100 01/06/23 02:24 98 01/06/23 02:22 130 H 18 134/96 96 01/06/23 02:08 97.4 F 130 H 14 125/89 98 01/06/23 02:00 128 H 18 125/89 96 01/06/23 01:00 125 H 18 129/82 98 01/05/23 23:13 97.4 F 106 H 16 139/92 98 General Appearance: other (unresponsive, sedated and on mechanical ventilator currently) Respiratory Exam: lungs clear Cardiovascular Exam: tachycardia Gastrointestinal/Abdomen Exam: other (large amounts of serosang fluid in ROSAMARIA drains, dressing has some shadowing from abdominal incision) Extremity Exam: normal inspection Skin Exam: normal color, warm, dry Results - Labs Lab/Micro Results: Lab Results-Last 24 Hours 01/06/23 01/06/23 01/06/23 Range/Units 00:25 00:25 00:25 WBC 2.3 L (4.0-10.5) x10^3/uL RBC 3.64 L (4.1-5.4) x10^6/uL Hgb 9.8 L (12.0-16.0) g/dL Hct 31.7 L (35-47) % MCV 87.1 (78-100) fL MCH 26.9 (26-32) pg MCHC 30.9 L (32-36) g/dL RDW 15.8 H (11.5-14.0) % Plt Count 803 H (150-450) x10^3/uL MPV 9.3 (7.5-11.0) fL Segmented Neutrophils 68 H (36.0-66.0) % Band Neutrophils 16 H (0.0-2.0) % Lymphocytes (Manual) 12 L (24-44) % Monocytes (Manual) 3 (0.0-12.0) % Eosinophils (Manual) 1 (0.00-3.0) % Nucleated RBCs 1 % Atypical Lymphocytes % Toxic Granulation Platelet Estimate INCREASED (NORMAL) RBC Morphology NORMAL Anisocytosis Smear Path Review PT (9.4-12.5) SECONDS INR (0.8-3.0) APTT (25.1-36.5) SECONDS Puncture Site pCO2 (35-45) mmHg pO2 (75-100) mmHg Base Excess (-2.0-2.0) O2 Saturation (94-100) g/dF ABG pH (7.35-7.45) ABG HCO3 (22-28) ABG O2 Sat (Measured) (95-100) % Guillermo Test A-a Gradient a/A Ratio Hemoglobin Carboxyhemoglobin (0.0-6.9) % THgb Methemoglobin (1.4-1.5) % Temperature C POC O2 Flow Rate % Vent Mode Tidal Volume cc PEEP cmH2O Sodium 130 L (137-145) mmol/L Potassium 4.5 (3.5-5.1) mmol/L Chloride 101 (98-107) mmol/L Carbon Dioxide 17 L (22-30) mmol/L Anion Gap 15.4 H (5-15) MEQ/L BUN 62 H (7-17) mg/dL Creatinine 1.39 H (0.52-1.04) mg/dL Estimated GFR 40.2 ML/MIN Glucose 117 H (74-106) mg/dL Lactic Acid (0.4-2.0) Calcium 8.1 L (8.4-10.2) mg/dL Magnesium (1.6-2.3) mg/dL Total Bilirubin 0.40 (0.2-1.3) mg/dL AST 20 (14-36) U/L ALT 19 (0-35) U/L Alkaline Phosphatase 97 (38-126) U/L Troponin I < 0.012 (0.000-0.034) ng/mL Serum Total Protein 4.8 L (6.3-8.2) g/dL Albumin 2.3 L (3.5-5.0) g/dL Lipase 22 L (23-300) U/L Influenza Type A Ag (NEGATIVE) Influenza Type B Ag (NEGATIVE) RSV (PCR) (NEGATIVE) SARS-CoV-2 (PCR) (NEGATIVE) ABO Group Rh Factor Antibody Screen (NEGATIVE) 01/06/23 01/06/23 01/06/23 Range/Units 00:25 00:25 01:42 WBC (4.0-10.5) x10^3/uL RBC (4.1-5.4) x10^6/uL Hgb (12.0-16.0) g/dL Hct (35-47) % MCV (78-100) fL MCH (26-32) pg MCHC (32-36) g/dL RDW (11.5-14.0) % Plt Count (150-450) x10^3/uL MPV (7.5-11.0) fL Segmented Neutrophils (36.0-66.0) % Band Neutrophils (0.0-2.0) % Lymphocytes (Manual) (24-44) % Monocytes (Manual) (0.0-12.0) % Eosinophils (Manual) (0.00-3.0) % Nucleated RBCs % Atypical Lymphocytes % Toxic Granulation Platelet Estimate (NORMAL) RBC Morphology Anisocytosis Smear Path Review PT 11.0 (9.4-12.5) SECONDS INR 1.01 (0.8-3.0) APTT 36.5 (25.1-36.5) SECONDS Puncture Site pCO2 (35-45) mmHg pO2 (75-100) mmHg Base Excess (-2.0-2.0) O2 Saturation (94-100) g/dF ABG pH (7.35-7.45) ABG HCO3 (22-28) ABG O2 Sat (Measured) (95-100) % Guillermo Test A-a Gradient a/A Ratio Hemoglobin Carboxyhemoglobin (0.0-6.9) % THgb Methemoglobin (1.4-1.5) % Temperature C POC O2 Flow Rate % Vent Mode Tidal Volume cc PEEP cmH2O Sodium (137-145) mmol/L Potassium (3.5-5.1) mmol/L Chloride (98-107) mmol/L Carbon Dioxide (22-30) mmol/L Anion Gap (5-15) MEQ/L BUN (7-17) mg/dL Creatinine (0.52-1.04) mg/dL Estimated GFR ML/MIN Glucose (74-106) mg/dL Lactic Acid 2.1 H (0.4-2.0) Calcium (8.4-10.2) mg/dL Magnesium (1.6-2.3) mg/dL Total Bilirubin (0.2-1.3) mg/dL AST (14-36) U/L ALT (0-35) U/L Alkaline Phosphatase (38-126) U/L Troponin I (0.000-0.034) ng/mL Serum Total Protein (6.3-8.2) g/dL Albumin (3.5-5.0) g/dL Lipase (23-300) U/L Influenza Type A Ag (NEGATIVE) Influenza Type B Ag (NEGATIVE) RSV (PCR) (NEGATIVE) SARS-CoV-2 (PCR) (NEGATIVE) ABO Group A Rh Factor NEGATIVE Antibody Screen NEGATIVE (NEGATIVE) 01/06/23 01/06/23 01/06/23 Range/Units 01:44 04:08 04:09 WBC (4.0-10.5) x10^3/uL RBC (4.1-5.4) x10^6/uL Hgb (12.0-16.0) g/dL Hct (35-47) % MCV (78-100) fL MCH (26-32) pg MCHC (32-36) g/dL RDW (11.5-14.0) % Plt Count (150-450) x10^3/uL MPV (7.5-11.0) fL Segmented Neutrophils (36.0-66.0) % Band Neutrophils (0.0-2.0) % Lymphocytes (Manual) (24-44) % Monocytes (Manual) (0.0-12.0) % Eosinophils (Manual) (0.00-3.0) % Nucleated RBCs % Atypical Lymphocytes % Toxic Granulation Platelet Estimate (NORMAL) RBC Morphology Anisocytosis Smear Path Review PT (9.4-12.5) SECONDS INR (0.8-3.0) APTT (25.1-36.5) SECONDS Puncture Site pCO2 (35-45) mmHg pO2 (75-100) mmHg Base Excess (-2.0-2.0) O2 Saturation (94-100) g/dF ABG pH (7.35-7.45) ABG HCO3 (22-28) ABG O2 Sat (Measured) (95-100) % Guillermo Test A-a Gradient a/A Ratio Hemoglobin Carboxyhemoglobin (0.0-6.9) % THgb Methemoglobin (1.4-1.5) % Temperature C POC O2 Flow Rate % Vent Mode Tidal Volume cc PEEP cmH2O Sodium 131 L (137-145) mmol/L Potassium 4.8 (3.5-5.1) mmol/L Chloride 103 (98-107) mmol/L Carbon Dioxide 15 L* (22-30) mmol/L Anion Gap 18.0 H (5-15) MEQ/L BUN (7-17) mg/dL Creatinine (0.52-1.04) mg/dL Estimated GFR ML/MIN Glucose (74-106) mg/dL Lactic Acid (0.4-2.0) Calcium (8.4-10.2) mg/dL Magnesium (1.6-2.3) mg/dL Total Bilirubin (0.2-1.3) mg/dL AST (14-36) U/L ALT (0-35) U/L Alkaline Phosphatase (38-126) U/L Troponin I < 0.012 (0.000-0.034) ng/mL Serum Total Protein (6.3-8.2) g/dL Albumin (3.5-5.0) g/dL Lipase (23-300) U/L Influenza Type A Ag NEGATIVE (NEGATIVE) Influenza Type B Ag NEGATIVE (NEGATIVE) RSV (PCR) NEGATIVE (NEGATIVE) SARS-CoV-2 (PCR) NEGATIVE (NEGATIVE) ABO Group Rh Factor Antibody Screen (NEGATIVE) 01/06/23 01/06/23 01/06/23 Range/Units 04:34 05:00 06:58 WBC (4.0-10.5) x10^3/uL RBC (4.1-5.4) x10^6/uL Hgb (12.0-16.0) g/dL Hct (35-47) % MCV (78-100) fL MCH (26-32) pg MCHC (32-36) g/dL RDW (11.5-14.0) % Plt Count (150-450) x10^3/uL MPV (7.5-11.0) fL Segmented Neutrophils (36.0-66.0) % Band Neutrophils (0.0-2.0) % Lymphocytes (Manual) (24-44) % Monocytes (Manual) (0.0-12.0) % Eosinophils (Manual) (0.00-3.0) % Nucleated RBCs % Atypical Lymphocytes % Toxic Granulation Platelet Estimate (NORMAL) RBC Morphology Anisocytosis Smear Path Review PT (9.4-12.5) SECONDS INR (0.8-3.0) APTT (25.1-36.5) SECONDS Puncture Site AL AL ARTLINE pCO2 36 36 38 (35-45) mmHg pO2 162 H* 175 H* 156 H* (75-100) mmHg Base Excess -11.5 L -7.5 L -12.3 L (-2.0-2.0) O2 Saturation 96.9 96.8 96.5 (94-100) g/dF ABG pH 7.23 L* 7.31 L 7.20 L* (7.35-7.45) ABG HCO3 15.1 L* 18.1 L 14.9 L* (22-28) ABG O2 Sat (Measured) 100.0 100.0 100.0 (95-100) % Guillermo Test NOT APPLICABLE NOT APPLICABLE NOT APPLICABLE A-a Gradient -57 137 224 a/A Ratio 1.54 0.56 0.41 Hemoglobin 9.5 8.9 10.4 Carboxyhemoglobin 1.8 2.0 2.2 (0.0-6.9) % THgb Methemoglobin 1.4 1.2 L 1.3 L (1.4-1.5) % Temperature 37.0 37.0 37.0 C POC O2 Flow Rate 21 50 60 % Vent Mode A/C Tidal Volume 450 cc PEEP 5.0 cmH2O Sodium (137-145) mmol/L Potassium 4.8 4.2 4.4 (3.5-5.1) mmol/L Chloride (98-107) mmol/L Carbon Dioxide (22-30) mmol/L Anion Gap (5-15) MEQ/L BUN (7-17) mg/dL Creatinine (0.52-1.04) mg/dL Estimated GFR ML/MIN Glucose (74-106) mg/dL Lactic Acid (0.4-2.0) Calcium (8.4-10.2) mg/dL Magnesium (1.6-2.3) mg/dL Total Bilirubin (0.2-1.3) mg/dL AST (14-36) U/L ALT (0-35) U/L Alkaline Phosphatase (38-126) U/L Troponin I (0.000-0.034) ng/mL Serum Total Protein (6.3-8.2) g/dL Albumin (3.5-5.0) g/dL Lipase (23-300) U/L Influenza Type A Ag (NEGATIVE) Influenza Type B Ag (NEGATIVE) RSV (PCR) (NEGATIVE) SARS-CoV-2 (PCR) (NEGATIVE) ABO Group Rh Factor Antibody Screen (NEGATIVE) 01/06/23 01/06/23 01/06/23 Range/Units 06:58 07:17 07:17 WBC 1.5 L* (4.0-10.5) x10^3/uL RBC 4.32 (4.1-5.4) x10^6/uL Hgb 11.4 L (12.0-16.0) g/dL Hct 39.3 (35-47) % MCV 91.0 (78-100) fL MCH 26.4 (26-32) pg MCHC 29.0 L (32-36) g/dL RDW 16.1 H (11.5-14.0) % Plt Count 877 H (150-450) x10^3/uL MPV 9.5 (7.5-11.0) fL Segmented Neutrophils 49 (36.0-66.0) % Band Neutrophils 2 (0.0-2.0) % Lymphocytes (Manual) 34 (24-44) % Monocytes (Manual) 13 H (0.0-12.0) % Eosinophils (Manual) 1 (0.00-3.0) % Nucleated RBCs 3 % Atypical Lymphocytes 1 % Toxic Granulation 1+ Platelet Estimate INCREASED (NORMAL) RBC Morphology ABNORMAL Anisocytosis 1+ Smear Path Review Pending PT (9.4-12.5) SECONDS INR (0.8-3.0) APTT (25.1-36.5) SECONDS Puncture Site pCO2 (35-45) mmHg pO2 (75-100) mmHg Base Excess (-2.0-2.0) O2 Saturation (94-100) g/dF ABG pH (7.35-7.45) ABG HCO3 (22-28) ABG O2 Sat (Measured) (95-100) % Guillermo Test A-a Gradient a/A Ratio Hemoglobin Carboxyhemoglobin (0.0-6.9) % THgb Methemoglobin (1.4-1.5) % Temperature C POC O2 Flow Rate % Vent Mode Tidal Volume cc PEEP cmH2O Sodium 137 (137-145) mmol/L Potassium 4.7 (3.5-5.1) mmol/L Chloride 110 H (98-107) mmol/L Carbon Dioxide 14 L* (22-30) mmol/L Anion Gap 17.8 H (5-15) MEQ/L BUN 52 H (7-17) mg/dL Creatinine 1.10 H (0.52-1.04) mg/dL Estimated GFR 52.7 ML/MIN Glucose 71 L (74-106) mg/dL Lactic Acid 4.7 H (0.4-2.0) Calcium 7.1 L (8.4-10.2) mg/dL Magnesium 2.0 (1.6-2.3) mg/dL Total Bilirubin 0.30 (0.2-1.3) mg/dL AST 35 (14-36) U/L ALT 19 (0-35) U/L Alkaline Phosphatase 67 (38-126) U/L Troponin I (0.000-0.034) ng/mL Serum Total Protein 3.4 L (6.3-8.2) g/dL Albumin 1.7 L (3.5-5.0) g/dL Lipase (23-300) U/L Influenza Type A Ag (NEGATIVE) Influenza Type B Ag (NEGATIVE) RSV (PCR) (NEGATIVE) SARS-CoV-2 (PCR) (NEGATIVE) ABO Group Rh Factor Antibody Screen (NEGATIVE) 01/06/23 Range/Units 08:17 WBC (4.0-10.5) x10^3/uL RBC (4.1-5.4) x10^6/uL Hgb (12.0-16.0) g/dL Hct (35-47) % MCV (78-100) fL MCH (26-32) pg MCHC (32-36) g/dL RDW (11.5-14.0) % Plt Count (150-450) x10^3/uL MPV (7.5-11.0) fL Segmented Neutrophils (36.0-66.0) % Band Neutrophils (0.0-2.0) % Lymphocytes (Manual) (24-44) % Monocytes (Manual) (0.0-12.0) % Eosinophils (Manual) (0.00-3.0) % Nucleated RBCs % Atypical Lymphocytes % Toxic Granulation Platelet Estimate (NORMAL) RBC Morphology Anisocytosis Smear Path Review PT (9.4-12.5) SECONDS INR (0.8-3.0) APTT (25.1-36.5) SECONDS Puncture Site art line pCO2 30 L (35-45) mmHg pO2 165 H* (75-100) mmHg Base Excess -14.6 L (-2.0-2.0) O2 Saturation 96.8 (94-100) g/dF ABG pH 7.21 L* (7.35-7.45) ABG HCO3 12.0 L* (22-28) ABG O2 Sat (Measured) 100.0 (95-100) % Guillermo Test na A-a Gradient 225 a/A Ratio 0.42 Hemoglobin 11.2 Carboxyhemoglobin 2.2 (0.0-6.9) % THgb Methemoglobin 1.0 L (1.4-1.5) % Temperature 37.0 C POC O2 Flow Rate 60 % Vent Mode A/C Tidal Volume 450 cc PEEP 5.0 cmH2O Sodium (137-145) mmol/L Potassium 4.7 (3.5-5.1) mmol/L Chloride (98-107) mmol/L Carbon Dioxide (22-30) mmol/L Anion Gap (5-15) MEQ/L BUN (7-17) mg/dL Creatinine (0.52-1.04) mg/dL Estimated GFR ML/MIN Glucose (74-106) mg/dL Lactic Acid (0.4-2.0) Calcium (8.4-10.2) mg/dL Magnesium (1.6-2.3) mg/dL Total Bilirubin (0.2-1.3) mg/dL AST (14-36) U/L ALT (0-35) U/L Alkaline Phosphatase (38-126) U/L Troponin I (0.000-0.034) ng/mL Serum Total Protein (6.3-8.2) g/dL Albumin (3.5-5.0) g/dL Lipase (23-300) U/L Influenza Type A Ag (NEGATIVE) Influenza Type B Ag (NEGATIVE) RSV (PCR) (NEGATIVE) SARS-CoV-2 (PCR) (NEGATIVE) ABO Group Rh Factor Antibody Screen (NEGATIVE) Microbiology 01/06/23 03:40 Mycobacterium k[place]ii DNA Probe - Final Abdominal Fluid Not Reportable Mycobacterium gordanae DNA Probe - Final Not Reportable Mycobacterium DNA Probe - Final Not Reportable Organism ID (Sequencing) - Final Not Reportable - Radiology Impressions Radiology Exams & Impressions: Radiology Procedures Category Date Time Status ABDOMEN AND PELVIS W/0 CONTRAS [CT] Stat Exams 01/06/23 00:06 Completed CHEST 1 VIEW (PORTABLE) Stat Exams 01/06/23 06:34 Completed CHEST 1 VIEW (PORTABLE) Stat Exams 01/06/23 07:29 Completed - Other Procedures and Tests Respiratory Therapy 01/06/23 07:00 Ventilator Management Q4H 01/06/23 08:42 Oxygen Venti-Mask 60% Assessment/Plan (1) Septic shock Current Visit: Yes Status: Acute Assessment & Plan: currently on levophed and neosynephrine drips, goal to keep MAP >70. has received over 6L fluid resuscitation. low bicarb on blood gas, receiving bicarb per Dr Payne. patient is in critical condition, discussed this with her Tasha. we discussed code status and he wishes for her to remain a full code at this time. Code(s): A41.9 - SEPSIS, UNSPECIFIED ORGANISM; R65.21 - SEVERE SEPSIS WITH SEPTIC SHOCK (2) Peritonitis (acute) generalized Current Visit: Yes Status: Acute Code(s): K65.0 - GENERALIZED (ACUTE) PERITONITIS (3) Perforated ulcer Current Visit: Yes Status: Acute Assessment & Plan: repaired per Dr Khan Code(s): K27.5 - CHRONIC OR UNSP PEPTIC ULCER, SITE UNSP, WITH PERFORATION
[2023-01-06] MEDS ORDERED: Sodium Chloride 0.9% 1000 ML 1,000 ML IV STA ×2 (09:49→11:49)
[2023-01-06] MEDS ORDERED: FENTANYL 500 MCG/10 ML VIAL 1,500 MCG in Sodium Chloride 0.9% 150 ML 120 ML IV PRN (09:53)
[2023-01-06] MEDS ORDERED: SUBLIMAZE 100 MCG/2 ML IV PRN (09:53)
--- NOTE | 2023-01-06 09:54 | OP ---
SURGERY DATE/TIME: 01/06/2023 0248 PREOPERATIVE DIAGNOSIS: Perforated viscus, acute abdomen, sepsis. POSTOPERATIVE DIAGNOSIS: Perforated viscus, acute abdomen, sepsis. PROCEDURES: 1) Exploratory laparotomy, extensive lavage of diffuse peritonitis and vegetable matter. 2) Closure of perforated ulcer near gastroenteric anastomosis with additional omental patch onlay. 3) Gastrotomy with removal of chronic bezoar with closure of gastrotomy. 4) Open jejunostomy tube. 5) Repair of incarcerated ventral hernia with suture. SURGEON: Dr. Clark Khan. ANESTHESIA: General. ESTIMATED BLOOD LOSS: 50 to 75 cc. INDICATIONS: As noted above. A pleasant 67-year-old overweight patient with history of chronic bezoar. She has been having pain for the past three to four days. She came into the emergency room finally and had perforated viscus. I was called in the middle of the night. OR team was called in. Risks and benefits explained in detail per surgical consult and consent obtained. DESCRIPTION OF PROCEDURE AND FINDINGS: The patient is taken to the operating room. There was extensive delay waiting anesthesia to have an arterial line. It took a couple hours to get started. Once started anesthesia had also placed a central line for better access. Prepped and draped in the usual sterile fashion. After official time out and no disagreement with planned procedure, a midline incision made. Dissection carried down. She had a ventral hernia incarcerated with omentum, this is carefully reduced. The peritoneum was entered sharply. A large amount of fluid and gas, large amount of vegetable matter. Culture was taken. Extensive lavage of this diffuse peritonitis was accomplished, this had been going on for some time and did not just happen this evening. It is very difficult to tell exactly where the perforation is from as there is not gross stool in the pelvis. There was question whether it was more proximal with the stomach or small bowel, stomach/small bowel connection as she had a prior partial gastrectomy. She has chronic bezoar. Extensive lavage of vegetable manner, diffuse peritonitis and perforation was noted in the stomach posteriorly near the jejunogastric anastomotic site. This patient has a chronic bezoar in her stomach. It is felt the bezoar should be removed in this setting. Small gastrotomy is made anterior well away from the perforated site. A large amount of vegetable matter with bezoar was carefully removed and passed off. Copious amount of irrigation irrigating clear. The ulcer could be palpated from the inside. NG is confirmed in good position. Gastrotomy is closed with running 3-0 PDS with full thickness layer with external layer under serosal layer with 3-0 PDS interrupted with closure of the gastrotomy. NG was felt to still be in good position. At this point attention is then turned to the perforated ulcer. It was felt it was large enough that no difficulty just omental patch only to close if the surrounding tissue is viable enough. Some 0 PDS placed bringing the ulcer edges closer together without strangulation. Omental patch onlay was then carefully applied. Copious amount of irrigation irrigating as clear as possible. It was felt that this patient is too septic and ill and acidotic to warrant any consideration of near total gastrectomy at this time. If she survives this insult may be referred to tertiary center. Otherwise it was felt that she would benefit from jejunostomy tube as it could be some time before she is able to have any p.o. intake orally. Unfortunately guest relations executive francisco did not know where the jejunostomy tubes were and it took quite some time to find out that there was not a jejunostomy or red rubber catheter available in this facility and there is no staff to bring one down from by a nearby [facility]. It was felt the next best option was placing the only available replacement of gastrotomy tube. Therefore an area of jejunum was noted. A small incision is made with cautery. The gastrostomy tube then tunneled through the abdominal wall and placed down inside of the jejunum, pursestring tied tension site. The tube was in a whistle-type fashion carefully tunneled with some interrupted 3-0 PDS. Once this was accomplished, the part coming out of the tunnel was carefully secured to the fascia inside abdominal wall with some 3-0 PDS. Externally the tube had been secured with some 0 PDS to avoid incidental dislodgement. It was felt this is less than ideal but this is the only thing available. It was felt this very ill patient needs jejunostomy tube access. After copious amount of irrigation irrigating clear, in this obese patient the staff made sure there was visible or palpable lap pads. The OR staff reported the lap count was correct. There had been a major delay in waiting for potential feeding tube. At this point instruments and gloves were changed. Some clean towels were placed around the wound. Fascia closed with running looped 0 PDS in sequential fashion. Subcu irrigated out. Given her obesity some interrupted 3-0 Vicryl used to take the tension off of the skin. The skin was loosely stapled. It should be noted that the patient's incarcerated ventral hernia was closed with a suture. It was felt she is not a candidate for considering mesh at this point. Subcu irrigated out. Skin loosely stapled, some Iodoform packed in between to be gradually advanced out over the next few days and then change packing after that. Otherwise, prior to closing the fascia three drains were placed one in the left upper quadrant, one right side down in the pelvis, drain underneath the colon without direct communication with the perforated segment in the stomach/small bowel connection. The omentum onlay had been placed. There were no immediate complications. The patient is quite ill. She was given abdominal binder and sterile dressing. She is to be kept on a ventilator per anesthesia and continue arterial line and central line, continue medical management. She is to be admitted and medical physician will decide whether she needs transfer for additional specialists in [place]. Findings were discussed with the family out in the waiting area.
[2023-01-06] MEDS ORDERED: PROTONIX 40 MG IV IV SCH (10:00)
[2023-01-06] MEDS ORDERED: SUBLIMAZE 100 MCG/2 ML IV ONE (10:00)
[2023-01-06] MEDS ORDERED: Lubrifresh P.M. 3.5 gm Ointment OP PRN (10:00)
[2023-01-06 11:06] LABS: A-aADO2 194; ABG HEMOGLOBIN 10.8; ABG POTASSIUM 4.9 (3.5-5.1); ARTERIAL BLD GAS TIDAL VOLUME 450 cc; ARTERIAL BLOOD GAS BASE EXCESS -17.2 (-2.0-2.0); ARTERIAL BLOOD GAS FIO2 60 %; ARTERIAL BLOOD GAS PCO2 31 mmHg (35-45); ARTERIAL BLOOD GAS PO2 195 mmHg (75-100); ARTERIAL BLOOD GAS VENT MODE A/C; ARTERIAL BLOOD GAS pH 7.14 (7.35-7.45); HCO3- 10.6 (22-28); HGB O2 SAT 96.8 g/dF (94-100); Methhemoglobin 1.2 % (1.4-1.5)
[2023-01-06 11:40] LABS: Appearance Clear (Clear); Bilirubin Negative (Negative); Blood Negative (Negative); Glucose, Urine Negative (Negative); Ketones Trace (Negative); Leukocyte Esterase Negative (Negative); Nitrite Negative (Negative); Protein,Urine Dip Trace (Negative); Specific Gravity >=1.030 (1.005-1.030); Urobilinogen 0.2 mg/dL (0.2)
[2023-01-06 11:48] LABS: Epithelial Cells Few /HPF (None Seen); RBC NONE SEEN /HPF (0-5); WBC NONE SEEN /HPF (0-5)
[2023-01-06 11:49] LABS: ADD URINE CULTURE? ORDERED SEPARATELY (NO); Bacteria None Seen /HPF (None Seen)
[2023-01-06] MEDS ORDERED: Sodium Bicarbonate 50 MEQ/50 ML VIAL*** 150 MEQ in Dextrose 5%/Water IV Soln. 1000 ML 8... IV ONE (13:00)
[2023-01-06 15:24] VITALS: BP 86/57; PULSE 163
[2023-01-06] MEDS ORDERED: ENOXAPARIN SODIUM SQ SCH (22:00)
[2023-01-06] MEDS ORDERED: PERIDEX MM SCH (22:00)
== END 2023-01-06 15:25 | disposition short-term general hospital (02) | DRG 853 ==
LOC: ED 23:09 → ICU 01-06 06:30
PROVIDERS: ADMIT Family Medicine; ATTEND Family Medicine
PROC: 0DJ60ZZ Inspection of Stomach, Open Approach (ICD-10-PCS; principal; 2023-01-06)
PROC: 0D960ZZ Drainage of Stomach, Open Approach (ICD-10-PCS; 2023-01-06)
PROC: 0DQV0ZZ Repair Mesentery, Open Approach (ICD-10-PCS; 2023-01-06)
DX: A41.9 Sepsis, unspecified organism (principal); K27.5 Chronic or unspecified peptic ulcer, site unspecified, with perforation; K65.0 Generalized (acute) peritonitis; R65.21 Severe sepsis with septic shock; K63.1 Perforation of intestine (nontraumatic); K43.9 Ventral hernia without obstruction or gangrene; T18.9XXA Foreign body of alimentary tract, part unspecified, initial encounter; Z79.899 Other long term (current) drug therapy; Z20.828 Contact with and (suspected) exposure to other viral communicable diseases
CPT/HCPCS: 0241U; 36000; 36415; 36600; 43840; 43999; 49000; 49084; 49440; 49592; 71045; 74176; 80051; 80053; 81001; 82375; 82803; 83605; 83690; 83735; 84484; 85025; 85610; 85730; 86850; 86900; 86901; 87046; 87070; 87075; 87086; 87116; 87206; 93005; 94002; 96374; 96375; 99284; 99291; 99292; J0330; J1170; J2250; J2270; J2370; J2405; J2704; J3010; L0625; P9047